=== PATIENT | female | born 2000 | race Caucasian/White ===

== ENCOUNTER 2023-10-08 07:27 | Inpatient (IN) ==
--- OUTSIDE RECORDS SUMMARY | 2023-10-08 07:51 | External Medical Summary | Summary of Care ---
Author Name Unknown Organization [facility] Address [address] [place] [address] Phone [phone] Care Team Providers Care Instrument Maker And Repairer Name Role Phone Nati Darling DO Primary Care Provider Reason for Visit * Reason Comments Non Stress Test Encounter Details Date Type Department Care Team (Late st Contact Info) Description 09/26/2023 2:30 PM EST Office Visit Gynecology/Obstetric s [facility] [address] [facility] [address] Amy Bautista CRNP [address] [place] [address] Bill Non Stress Tests [facility] [address] [place] [address] Supervision of high risk in third trimester*; Rh negative status during in third trimester; Elevated LFTs; Cholestasis during in third trimester; Excessive growth affecting management of in third trimester, single or unspecified fetus; Rubella non-immune status, antepartum Allergies No known active allergiesdocumented as of this encounter (statuses as of 09/26/2023) Medications Medication Sig Dispensed Refills Start Date End Date Status 19 29-1 MG Oral Tablet Chewable Take by mouth. 0 Active Vitamin B-12 1000 MCG Oral Tablet (Cyanocobalamin) Take 1 Tablet by mouth in the morning. 30 Tablet 5 08/08/2023 Active Ursodiol 300 MG Oral Capsule (Actigall)Indication s:Cholestasis during in third trimester Take 1 Capsule by mouth in the morning and 1 Capsule before bedtime. 60 Capsule 2 09/04/2023 Active documented as of this encounter (statuses as of 09/26/2023) Active Problems Problem Noted Date Diagnosed Date Excessive growth affec ting management of in third trimester 09/07/2023 Overview: Repeat growth 38-39 wk Last Assessment & Plan: CONSIDERATIONS: Reviewed that weight greater than 90%ile is considered "large for gestational age" (LGA). Discussed associated risks (e.g., difficult labor progress or delivery, hemorrhage, shoulder dystocia). LGA may be related to constitutional factors (e.g., male gender, ethnicity), environmental factors (maternal diabetes/obesity/weight gain), or genetic conditions. Iraida is of tall stature. Low risk NIPT appreciated. Discussed the limitations of ultrasound in predicting weight, especially at later gestational ages. For a fetus estimated as greater than 4500 gm, this error may be as high as 33-44%. RECOMMENDATIONS: Recommend assessing for GDM if this has not been performed in the last 3 weeks. Iraida had normal 1'GTT on 07/27/23. Recommend repeating ultrasound for growth at 38-39 weeks gestation. Recommend delivery without trial of labor for estimated weight greater than 5000 gm (in the non-diabetic woman) OR greater than 4500 gm (in the diabetic woman). Concern for macrosomia/LGA is NOT an indication for induction of labor. The patient should discuss further management and delivery plan with her primary OB provider. Supervision of high risk in third trim zach 09/04/2023 Cholestasis during in third trimester 09/04/2023 Overview: Cholestasis in thrid trimester, diagnosed at 31w On Ursodiol Reports some itching BILE ACIDS, FRACTIONATED AND TOTAL Order: [id number] Status: Final result Visible to patient: Yes (seen) Next appt: 09/19/2023 at 10:00 AM in Pharmacy ([facility]) Dx: Cholestasis during in third... 0 Result Notes Component 13 d ago Bile Acids, Fractionated and Total SEE BELOW Abnormal Comment: TESTS RESULTS--------UNITS--REF. RANGE--- Cholic Acid 5.8 H umol/L < OR = 1.8 Deoxycholic Acid 0.6 umol/L < OR = 2.4 Chenodeoxycholic Acid 3.3 H umol/L < OR = 3.1 Total Bile Acids 9.7 H umol/L < OR = 6.8 This test was developed and its analytical performance characteristics have been determined by [employer]. It has not been cleared or approved by FDA. This assay has been validated pursuant to the CLIA regulations and is used for clinical purposes. Test performed by [employer] [facility] [address] [place] [address] Hog Slaughterer: Kayla Herrera MD,PHD,FABIAN [facility] [place] Bile Acids, Fractionated and Total 08/21/2023 SEE BELOW Abnormal Comment: TESTS RESULTS--------UNITS--REF. RANGE--- Cholic Acid 7.3 H umol/L < OR = 1.8 Deoxycholic Acid 1.7 umol/L < OR = 2.4 Chenodeoxycholic Acid 4.8 H umol/L < OR = 3.1 Total Bile Acids 13.8 H umol/L < OR = 6.8 Check LFT's and hepatitis panel MANSI. Recommend rechecking LFT's and hepatitis panel after 3 months if suspicion of underlying liver pathology. Recommend treatment with Actigall (ursodeoxycholic acid) 300-500mg twice daily and titrate for symptom control up to maximum of 1200 mg/day. Consider additional medications for control of pruritus (such as Vistaril (hydroxyzine), Benadryl (diphenhydramine), S-adenosylmethionine). Recommend weekly surveillance from 32-34 weeks until delivery. NSTs have not been shown to reduce the risk of IUFD, however, they are routinely recommended given maternal anxiety regarding this diagnosis. It is reasonable to start NSTs at 32 weeks for patients with bile acids greater than 40 umol/L and at 34 weeks for patients with bile acids less than 40 umol/L. Repeat Bile acids at 35 weeks gestation. Delivery timing is based on the highest level of bile acids. We recommend delivery (without amniocentesis for lung maturity) based on the following algorithm: A. Severe range bile acids (>100) delivery on or soon after 36 weeks after a course of steroids. B. Moderate range bile acids (40-100) would be delivered on or soon after 37 weeks. Consider earlier delivery if i. Excruciating or unremitting maternal pruritus. ii. Jaundice. iii. History of stillbirth from ICP in previous with ICP in current . C. Mild range (less than 40) plan for delivery on or soon after 38 weeks. Last Assessment & Plan: Known cholestasis, now on ursodiol. Weekly NSTs planned. Delivery timing based on peak bile acids, which have been re-ordered. If they remain stable < 40, delivery should be planned for 38 weeks. with 33 completed weeks gestation 08/17 Elevated LFTs 08/22/2023 Overview: Ask A Doc to [facility], requesting referral be placed. Hepatic Panel Results: Results for orders placed or performed in visit on 08/21/23 HEPATIC FUNCTION PANEL Result Value Ref Range Albumin 3.5 (L) 3.8 - 5.0 g/dL AST 115 (H) 10 - 35 U/L Alkaline Phosphatase 184 (H) 35 - 130 U/L ALT 239 (H) 10 - 35 U/L Bilirubin, Total 0.4 <=1.2 mg/dL Bilirubin, Direct <0.2 0.0 - 0.3 mg/dL Protein 6.3 6.0 - 8.3 g/dL Iron deficiency anemia 08/21/2023 Rubella non-immune status, antepartum 03/19/2023 Rh negative status during 03/19/2023 Estimated Date of Delivery Comme nts Yes 10/20/2023 Based on last me nstrual period of 01/13/2023 (Exact Date) documented as of this encounter (statuses as of 09/26/2023) Resolved Problems Problem Noted Date Diagnosed Date Resolved Date Supervision of normal first 03/15/2023 09/04/2023 documented as of this encounter (statuses as of 09/26/2023) Immunizations Name Administration Dates Next Due DTaP Dipth/Tet/Acell Pertussis (Infanrix), Peds 03/22/2004,07/17/2000,06/28/1999,04/25,03/01/1999 HIB PRP-T, 4 dose (ActHib) 01/03/2000,,04/25/1999,03/01 HPV Vaccine, 9-Valent 11/20/2017,04/26/2017 Hep A - Hepatitis A (ped/ado le, 1-18 Yrs) 04/26/2017 Hepatitis B Vaccine 06/28/1999,01/31/1999,1998 Hepatitis B, 0-19 yrs 06/28/1999,01/31/1999,12/16 IPV - Polio Virus Vaccine (Inact) 2003,01/03/2000,04/25/1999,03/01 MMR - Measles/Mumps/Rubella Vaccine 03/22/2004,1 Meningococcal MCV4P Conjugat e Vaccine (Menactra) 09/14/2015,08/03/2010 Pneumococcal Conjugate Vacc, 13 Valent (Prevnar) 07/17/2000,01/03/2000 Seasonal Influenza, PF, 6 M & above, IM , (FluLaval or Fluzone) 06/15/2023 TDAP (age 10 and older)(Boostrix) 07/27/2023 TDAP (age 11 and older)(Adacel) 08/03/2010 Varicella Vaccine (Chicken Pox) 04/08/2007,07/17 documented as of this encounter Social History Tobacco Use Types Packs/Day Years Used Date Smoking Tobacco: Never Smokeless Tobacco: Never Alcohol Use Standard Drinks/Week Comments Not Currently 0 (1 standard drink = 0.6 oz pur e alcohol) PHQ-2 Answer Date Recorded PHQ Adult Total Score 0 03/13/2023 Hunger Vital Sign Answer Date Recorded Within the past 12 months, y ou worried that your food would run out before you got the money to buy more. Never true 06/08/20 23 Within the past 12 months, t he food you bought just didn't last and you didn't have money to get more. Never true 06/08/2023 [place] Depression Scale Answer Date Recorded [place] Depression Scale Total 2 07/27/2023 The thought of harming myself has occurred to me . Never 07/27/2023 Estimated Date of Delivery Comme nts Yes 10/20/2023 Based on last me nstrual period of 01/13/2023 (Exact Date) Sex and Gender Information Value Date Recorded Sex Assigned at Female 02/08/2023 7:52 AM EDT Gender Identity Female 02/08/2023 7:52 AM EDT Sexual Orientation Straight 02/27/2023 9: 06 AM EDT Job Start Date Occupation Industry Not on file Not on file Not on file documented as of this encounter Last Filed Vital Signs Vital Sign Reading Time Taken Comments Blood Pressure 126/82 09/26/2023 2:22 PM EST Pulse - - Temperature - - Respiratory Rate - - Oxygen Saturation - - Inhaled Oxygen Concentration - - Weight 95.7 kg (211 lb) 09/26/2023 2:22 PM EST Height 175.3 cm (5' 9") 09/26/2023 2:22 PM EST Body Mass Index 31.16 09/26/2023 2:22 PM EST documented in this encounter Progress Notes * Amy Bautista CRNP - 09/26/2023 2:55 PM EST 36w4d No concerns. Taking actigall, but not having any itching. Baby is active. No contractions or bleeding. Has growth u/s scheduled with MFM. IOL scheduled at 38w. GBS today. Linen Sorter Documentation Provider requested commission auditor. Name of commission auditor: Malgorzata ASSESSMENT assessment with Non-stress Test completed on 09/26/2023 at 36.4weeks gestation for indication of ICP heart baseline: 120 bpm Variability: Moderate Decelerations: absent Accelerations: present Contractions: None NST start time: 1432 NST stop time: 1457 NST strip reviewed, interpreted, and approved by OB provider, LASHAWN Lassiter . NST strip stored in clinic storage file * Malgorzata Hyde LPN - 09/26/2023 2:41 PM EST 36w4d NST/OBI GBS today. Denies concerns. documented in this encounter Plan of Treatment Upcoming Encounters Date Type Department Care Team (Late st Contact Info) Description 10/04/2023 1:45 PM EST Office Visit Gynecology/Obstetrics [facility] [address] [facility] [place] [address] Amy Bautista CRNP [address] [place] [address] Lizbeth Khan Stress Tests [facility] [address] [place] [address] 10/05/2023 9:15 AM EST Office Visit Accounting Teacher OB Maternal Medicine [facility] Juan Diego Goznales [address] [place] [address] Dr [address] [place] [address] Mg Christensen MD [address] [place] [address] 10/05/2023 9:15 AM EST Imaging Maternal Medicine [facility] Juan Diego Gonzales [address] [place] [address] Dr [address] [place] [address] 03/14/2024 7:20 AM EDT Office Visit Family Practice [facility] Zarate [place] [address] [facility] [place] [address] Nati Darling DO [address] [place] [address] Pending Results Name Type Priority Associated Diagnoses Date /Time GROUP B STREP CULTURE/PCR Lab Routine Supervision of high risk in third trimester 09/26/2023 3:37 PM EST Health Maintenance Due Date Last Done Comments COVID-19 Vaccine (#1) 06/25/1999 GARDASIL-HPV IMMUNIZATION SE GAVIN (3 - 3-dose series) 02/12/2018 11/20/2017, 04/26/2017 Depression Screening 03/13/2024 03/13/2023 Gonorrhea / Chlamydia Screen 03/15/2024 03/15/2023 Pap Smear 03/15/2026 03/15/2023 DTaP,Tdap,and Td Vaccines (8 - Td or Tdap) 07/27/2033 07/27/2023, 08/03/2010, 03/22/2004, Additional history exists Hepatitis B Completed 06/28/1999, 06/17, 01/31/1999, Additional history exists Pneumococcal Vaccine: Pediat rics (0 to 5 Years) and At-Risk Patients (6 to 64 Years) Completed 07/17/2000, 01/03/2000 MENINGOCOCCAL (MENACTRA/MENVEO) Completed 5, 08/03/2010 Influenza Vaccine (FLU shot) Completed 06/15/2023 documented as of this encounter Medical Devices Not on filedocumented as of this encounter Visit Diagnoses Diagnosis Supervision of high risk in third trimester- Primary Unspecified high-risk Rh negative status during in third trimester Elevated LFTs Other abnormal blood chemistry Cholestasis during in third trimester Excessive growth affecting management of in third trimester, single or unspecified fetus Rubella non-immune status, antepartum Other specified complication, antepartum documented in this encounter Care Teams Instrument Maker And Repairer Relationship Specialty Start Date End Date Nati Darling DO [address] [place] [address] PCP - General Family Medicine 03/13/23 documented as of this encounter
--- OUTSIDE RECORDS SUMMARY | 2023-10-08 07:51 | External Medical Summary | Summary of Care ---
Author Name Unknown Organization [facility] Address [address] [place] [address] Phone [phone] Care Team Providers Care Teaching Dietitian Name Role Phone Nati Darling DO Primary Care Provider Reason for Visit * Reason Comments Return Visit Encounter Details Date Type Department Care Team (Late st Contact Info) Description 10/04/2023 1:45 PM EST Office Visit Gynecology/Obstetric s [facility] [address] [place] [address] Amy Bautista CRNP [address] [place] [address] Bill Non Stress Tests [facility] [address] [place] [address] Supervision of high risk in third trimester*; Rubella non-immune status, antepartum; Rh negative, antepartum; Elevated LFTs; Cholestasis during in third trimester; Excessive growth affecting management of in third trimester, single or unspecified fetus Allergies No known active allergiesdocumented as of this encounter (statuses as of 10/04/2023) Medications Medication Sig Dispensed Refills Start Date [...] as of this encounter (statuses as of 10/04/2023) Active Problems Problem Noted Date Diagnosed Date [...] itching BILE ACIDS, FRACTIONATED AND TOTAL Order: [id number] Status: Final result Visible to patient: Yes [...] analytical performance characteristics have been determined by [employer]. It has not been cleared or approved by FDA. This assay has been validated pursuant to the CLIA regulations and is used for clinical purposes. Test performed by [facility] [address] [place] [address] Diving Board Assembler: Kayla Herrera MD,PHD,FABIAN Resulting Agency [facility] [place] Bile Acids, Fractionated and Total 08/21/2023 SEE [...] LFTs 08/22/2023 Overview: Ask A Doc to [facility], requesting referral be placed. Hepatic Panel [...] as of this encounter (statuses as of 10/04/2023) Resolved Problems Problem Noted Date Diagnosed Date Resolved Date Supervision of normal first 03/15/2023 09/04/2023 documented as of this encounter (statuses as of 10/04/2023) Immunizations Name Administration Dates Next Due DTaP [...] money to get more. Never true 06/08/2023 [place] Depression Scale Answer Date Recorded [place] Depression Scale Total 2 07/27/2023 The thought [...] Sign Reading Time Taken Comments Blood Pressure 120/70 10/04/2023 1:52 PM EST Pulse - - Temperature - - Respiratory Rate - - Oxygen Saturation - - Inhaled Oxygen Concentration - - Weight 98.4 kg (217 lb) 10/04/2023 1:52 PM EST Height 175.3 cm (5' 9") 10/04/2023 1:52 PM EST Body Mass Index 32.05 10/04/2023 1:52 PM EST documented in this encounter Progress Notes * Amy Bautista CRNP - 10/04/2023 2:26 PM EST 37w5d No complaints. Minimal itching. Baby is active, no contractions. IOL next week. ASSESSMENT assessment with Non-stress Test completed on 10/04/2023 at 37.5weeks gestation for indication of ICP heart baseline: 120 bpm Variability: Marked Decelerations: absent Accelerations: present Contractions: None NST start time: 1349 NST stop time: 1411 NST strip reviewed, interpreted, and approved by OB provider, LASHAWN Lassiter . NST strip stored in clinic storage file documented in this encounter Plan of Treatment Upcoming Encounters Date Type Department Care Team (Late st Contact Info) Description 10/05/2023 9:15 AM EST Office Visit Dinkey Operator [facility] Juan Diego Gonzales [address] [place] [address] Dr [address] [facility] [address] Mg Christensen MD [address] [facility] [address] 10/05/2023 9:15 AM EST Imaging Maternal Medicine [facility] Juan Diego Gonzales [address] [place] [address] Dr [address] [place] [address] 03/14/2024 7:20 AM EDT Office Visit Family Practice [facility] Tessa [place] [address] [place] [address] Nati Darling, [address] [place] [address] Health Maintenance Due Date Last Done Comments [...] risk in third trimester- Primary Unspecified high-risk Rubella non-immune status, antepartum Other specified complication, antepartum Rh negative, antepartum Rhesus isoimmunization affecting management of mother, antepartum condition Elevated LFTs Other abnormal blood chemistry Cholestasis during in third trimester Excessive growth affecting management of in third trimester, single or unspecified fetus documented in this encounter Care Teams Teaching Dietitian Relationship Specialty Start Date End Date Nati Darling DO [address] [place] [address] PCP - General Family Medicine 03/13/23 documented as of this encounter
--- OUTSIDE RECORDS SUMMARY | 2023-10-08 07:52 | External Medical Summary | Summary of Care ---
Author Name Unknown Organization [facility] Address [address] [place] [address] Phone [phone] Care Team Providers Care Bending Frame Operator Name Role Phone Nati Darling DO Primary Care Provider Encounter Details Date Type Department Care Team (Late st Contact Info) Description 09/04/2023 Telephone Hematology/Oncology [facility] [address] [place] [address] Love Queen PA-C [address] [place] [address] Allergies No known active allergiesdocumented as of this encounter (statuses as of 09/06/2023) Medications Medication Sig Dispensed Refills Start Date [...] as of this encounter (statuses as of 09/06/2023) Active Problems Problem Noted Date Diagnosed Date Supervision of high risk in third trim zach 09/04/2023 Cholestasis during in third trimester 09/04/2023 Overview: Cholestasis in thrid trimester, diagnosed at 31w On Ursodiol Reports some itching For repeat bile acids on 09/05/2023 Bile Acids, Fractionated and Total 08/21/2023 SEE [...] after 38 weeks. Last Assessment & Plan: CONSIDERATIONS: Explained to patient that intrahepatic cholestasis of (ICP) generally occurs in the second and third trimester and is characterized by pruritus, an elevation of serum bile acid concentrations, and often mild jaundice. The cause of ICP (intrahepatic cholestasis of ) is unknown though there may be a familial component and the incidence is approximately 1/200 pregnancies. The pruritus is often generalized but predominates on the palms of hand and soles of feet and is worse at night and is usually characterized as intolerable. Pruritus may precede laboratory abnormalities. Pruritus is not associated with a rash. Discussed with patient that ICP is diagnosed based on symptoms and lab abnormalities. Lab diagnosis for ICP is primarily made through assessment of bile acids after 24 weeks gestation. Bile acids can be measured regardless of fasting status. Diagnosis should be based on the normal ranges for at the lab where testing is performed. These lab abnormalities resolve after . Reviewed with patient that maternal prognosis with a diagnosis of intrahepatic cholestasis of (ICP) is very good. ICP resolves after delivery and there is no evidence of associated long-term maternal liver pathology, however ICP may occur more commonly in women with preexisting liver disease. complications include an increased incidence of premature delivery, intrauterine demise, and RDS. Risk of complications is believed to be directly proportional to the concentration of bile acids above the concentration of 40 umol/L. The greatest risk occurs with bile acid concentration above 100 umol/L. Explained that demise rarely occurs before 36 weeks gestation. The cause is unknown and there is no ideal method for surveillance in ICP. The recurrence risk for intrahepatic cholestasis of (ICP) in subsequent pregnancies is 40% to 60%. There is no available therapy for prevention. RECOMMENDATIONS: Check LFT's and hepatitis panel MANSI. Recommend [...] delivery on or soon after 38 weeks. with 33 completed weeks gestation 08/17 Elevated LFTs 08/22/2023 Overview: Ask A Doc to [facility], requesting referral be placed. Hepatic Panel [...] as of this encounter (statuses as of 09/06/2023) Resolved Problems Problem Noted Date Diagnosed Date Resolved Date Supervision of normal first 03/15/2023 09/04/2023 documented as of this encounter (statuses as of 09/06/2023) Immunizations Name Administration Dates Next Due DTaP [...] money to get more. Never true 06/08/2023 [place] Depression Scale Answer Date Recorded [place] Depression Scale Total 2 07/27/2023 The thought [...] on file documented as of this encounter Miscellaneous Notes * Telephone Encounter - Teressa Garay OSA - 09/05/2023 10:34 AM EST Called and spoke to patient and she is scheduled for venofer for 09/06/23. * Telephone Encounter - Gerardo Quevedo RN - 09/05/2023 9:40 AM EST [place] plan signed. Scheduling- Please call patient to schedule "Venofer /" (Bret). Patient will need weekly infusions x 3. Thank you! * Telephone Encounter - Gerardo Quevedo RN - 09/04/2023 12:30 PM EST [place] plan built and sent to [facility] as requested. Will await signature. No auth required for IV Venofer. documented in this encounter Plan of Treatment Upcoming Encounters Date Type Department Care Team (Late st Contact Info) Description 09/06/2023 1:45 PM EST Hem/Onc Treatment Hematology/Oncology Treatment, [place] [address] [place] [address] Tessa, Chair 7 Hem Onc [facility] [address] [place] [address] 09/07/2023 7:45 AM EST Office Visit Director Acute OB Maternal Medicine [facility] Juan Diego Gonzales [address] [place] [address] [address] [place] [address] Mona Quintanilla, [address] [place] [address] 09/07/2023 7:45 AM EST Imaging Maternal Medicine [facility] Juan Diego Gonzales [address] [place] [address] [address] [place] [address] 09/12/2023 2:15 PM EST Office Visit Gynecology/Obstetrics [facility] [address] [place] [address] Zuleyma Beltran CRNP [address] [place] [address] Bill Non Stress Tests [facility] [address] [place] [address] 09/18/2023 8:30 AM EST Office Visit Gynecology/Obstetrics [facility] [address] [place] [address] Zuleyma Beltran CRNP [address] [place] [address] 09/19/2023 10:00 AM EST Pharmacy Pharmacy, [place] [address] [place] [address] [facility] [address] [place] [address] 09/25/2023 8:00 AM EST Office Visit Gynecology/Obstetrics [facility] [address] [place] [address] Amy Bautista CRNP [address] [place] [address] 10/02/2023 8:00 AM EST Office Visit Gynecology/Obstetrics [facility] [address] [place] [address] Amy Bautista CRNP [address] [place] [address] 10/09/2023 8:00 AM EST Office Visit Gynecology/Obstetrics [facility] [address] [place], [place] [address] Amy Bautista CRNP [address] [place] [address] 10/16/2023 8:00 AM EST Office Visit Gynecology/Obstetrics [facility] [address] [place] [address] Amy Bautista CRNP [address] [place] [address] 10/23/2023 10:00 AM EST Office Visit Gynecology/Obstetrics [facility] [address] [place] [address] Amy Bautista CRNP [address] [place] [address] 03/14/2024 7:20 AM EDT Office Visit Family Practice [facility] [address] [place] [address] Nati Darling, [address] [place] [address] Health Maintenance Due Date Last Done Comments [...] Not on filedocumented as of this encounter Care Teams Bending Frame Operator Relationship Specialty Start Date End Date Nati Darling DO [address] [place] [address] PCP - General Family Medicine 03/13/23 documented as of this encounter
--- OUTSIDE RECORDS SUMMARY | 2023-10-08 07:52 | External Medical Summary | Summary of Care ---
Author Name Unknown Organization [facility] Address [address] [place] [address] Phone [phone] Care Team Providers Care Director Of Hemophilia Name Role Phone Nati Darling DO Primary Care Provider Reason for Visit * Evaluate & Treat - Unlimited Visits (Within 3 days (urgent)) - Authorized Specialty Diagnoses / Procedures Referred By Dash t Referred To Contact Obstetrics/Gynecology / Maternal Medicine Diagnoses Elevated LFTs Amy Bautista CRNP [address] [place] [address] Referral ID Status Reason Start Date Expiration Date Visits Requested Visits Authorized [id number] Authorized Specialty Services Required 08/22/2023 08/22/[phone] Encounter Details Date Type Department Care Team (Late st Contact Info) Description 09/07/2023 7:45 AM EST Office Visit Choker Setter OB Maternal Medicine [facility] Juan Diego Gonzales [address] [place] [address] Dr [address] [place] [address] Mona Quintanilla, DO [address] [place] [address] Cholestasis during in third trimester*; Excessive growth affecting management of in third trimester, single or unspecified fetus; Encounter for anatomic survey; 33 weeks gestation of ; Other specified related conditions, second trimester Allergies No known active allergiesdocumented as of this encounter (statuses as of 09/07/2023) Medications Medication Sig Dispensed Refills Start Date [...] as of this encounter (statuses as of 09/07/2023) Active Problems Problem Noted Date Diagnosed Date Excessive growth affec ting management of in third trimester 09/07/2023 Last Assessment & Plan: CONSIDERATIONS: Reviewed that [...] LFTs 08/22/2023 Overview: Ask A Doc to [facility], requesting referral be placed. Hepatic Panel [...] as of this encounter (statuses as of 09/07/2023) Resolved Problems Problem Noted Date Diagnosed Date Resolved Date Supervision of normal first 03/15/2023 09/04/2023 documented as of this encounter (statuses as of 09/07/2023) Immunizations Name Administration Dates Next Due DTaP [...] money to get more. Never true 06/08/2023 [place] Depression Scale Answer Date Recorded [place] Depression Scale Total 2 07/27/2023 The thought [...] on file documented as of this encounter Progress Notes * Mona Quintanilla, - 09/07/2023 1:00 PM EST MATERNAL MEDICINE VISIT Iraida Garcia presented today at 33w6d for an ultrasound and follow-up of her high risk . She was seen for the following indications: Problem List Items Addressed This Visit Digestive Cholestasis during in third trimester - Primary Known cholestasis, now on ursodiol. Weekly NSTs planned. Delivery timing based on peak bile acids, which have been re-ordered. If they remain stable < 40, delivery should be planned for 38 weeks. Other Excessive growth affecting management of in third trimester CONSIDERATIONS: Reviewed that weight greater than 90%ile is considered "large for gestational age" (LGA). Discussed associated risks (e.g., difficult labor progress or delivery, hemorrhage, shoulderdystocia). LGA may be related to constitutional factors (e.g., male gender, ethnicity), environmental factors (maternal diabetes/obesity/weight gain), or genetic conditions. Iraida is of tall stature. Low risk NIPT appreciated. Discussed the limitations of ultrasound in predicting weight, especially at later gestationalages. For a fetus estimated as greater than [...] delivery plan with her primary OB provider. Other Visit Diagnoses Encounter for anatomic survey 33 weeks gestation of We reviewed today's ultrasound findings. Normal growth with no evidence of structural abnormalities, however exam suboptimal dueto advanced gestational age and position. (For full details, please refer to ultrasound report provided separately). Ms. Garcia's questions were answered to her satisfaction. She was advised to contact our office or her OB provider for any additional questions regarding her . RECOMMENDATIONS: Recommend follow up ultrasound with MFM in 4 weeks for growth secondary to above indications. Thank you for allowing us to participate in the care of this patient. Please call with any questions. Mona Quintanilla DO 09/07/2023 1:00 PM documented in this encounter Miscellaneous Notes * Assessment & Plan Note - Mona Quintanilla DO - 09/07/2023 12:11 PM EST Associated Problem(s): Excessive growth affecting management of in third trimester CONSIDERATIONS: Reviewed that weight greater than 90%ile is considered "large for gestational age" (LGA). Discussed associated risks (e.g., difficult labor progress or delivery, hemorrhage, shoulderdystocia). LGA may be related to constitutional factors (e.g., male gender, ethnicity), environmental factors (maternal diabetes/obesity/weight gain), or genetic conditions. Iraida is of tall stature. Low risk NIPT appreciated. Discussed the limitations of ultrasound in predicting weight, especially at later gestationalages. For a fetus estimated as greater than [...] delivery plan with her primary OB provider. * Assessment & Plan Note - Mona Quintanilla DO - 09/07/2023 12:04 PM EST Associated Problem(s): Cholestasis during in third trimester Known cholestasis, now on ursodiol. Weekly NSTs planned. Delivery timing based on peak bile acids, which have been re-ordered. If they remain stable < 40, delivery should be planned for 38 weeks. documented in this encounter Plan of Treatment Upcoming Encounters Date Type Department Care Team (Late st Contact Info) Description 09/12/2023 2:15 PM EST Office Visit Gynecology/Obstetrics [facility] [address] [place] [address] Zuleyma Beltran CRNP [address] [place] [address] Bill, Non Stress Tests [facility] [address] [place] [address] 09/13/2023 9:30 AM EST Hem/Onc Treatment Hematology/Oncology Treatment, [place] [address] [place] [address] Tessa, Chair [address] [place], [place] [address] 09/18/2023 8:30 AM EST Office Visit Gynecology/Obstetrics [facility] [address] [place] [address] Zuleyma Beltran CRNP [address] [place] [address] 09/19/2023 10:00 AM EST Pharmacy Pharmacy, [place] [address] [place] [address] Clinic, An[place] [address] [place] [address] 09/20/2023 8:30 AM EST Hem/Onc Treatment Hematology/Oncology Treatment, [place] [address] [place] [address] Tessa, Chair 11 Hem Onc [facility] [address] [facility] [place] [address] 09/25/2023 8:00 AM EST Office Visit Gynecology/Obstetrics [facility] [address] [place] [address] Amy Bautista CRNP [address] [place] [address] 10/02/2023 8:00 AM EST Office Visit Gynecology/Obstetrics [facility] [address] [place] [address] Amy Bautista CRNP [address] [place] [address] 10/05/2023 9:15 AM EST Office Visit Choker Setter OB Maternal Medicine [facility] Juan Diego Gonzales [address] [place] [address] [address] [place] [address] Mg Christensen MD [address] [place] [address] 10/05/2023 9:15 AM EST Imaging Maternal Medicine [facility] Juan Diego Gonzales [address] [place] [address] [address] [place] [address] 10/09/2023 8:00 AM EST Office Visit Gynecology/Obstetrics [facility] [address] [place] [address] Amy Bautista CRNP [address] [place] [address] 10/16/2023 8:00 AM EST Office Visit Gynecology/Obstetrics [facility] [address] [place] [address] Amy Bautista CRNP [address] [place] [address] 10/23/2023 10:00 AM EST Office Visit Gynecology/Obstetrics [facility] [address] [place] [address] Amy Bautista CRNP [address] [place] [address] 03/14/2024 7:20 AM EDT Office Visit Family Practice [facility] Zarate [place] [address] [place] [address] Nati Darling, [address] [place] [address] Scheduled Orders Name Type Priority Associated Diagnoses Orde r Schedule MFM US PREG FOLLOW UP EACH FETUS Medical Imaging Routine Cholestasis during in third trimester Excessive growth affecting management of in third trimester, single or unspecified fetus Encounter for anatomic survey 33 weeks gestation of Other specified related conditions, second trimester 4 Occurrences starting 09/07/2023 until 12/07/2023 Health Maintenance Due Date Last Done Comments [...] as of this encounter Visit Diagnoses Diagnosis Cholestasis during in third trimester- Primary Excessive growth affecting management of in third trimester, single or unspecified fetus Encounter for anatomic survey 33 weeks gestation of state, incidental Other specified related conditions, second trimester documented in this encounter Care Teams Director Of Hemophilia Relationship Specialty Start Date End Date Nati Darling DO [address] [place] [address] PCP - General Family Medicine 03/13/23 documented as of this encounter
--- OUTSIDE RECORDS SUMMARY | 2023-10-08 07:52 | External Medical Summary | Summary of Care ---
Author Name Unknown Organization [facility] Address [address] [place] [address] Phone [phone] Care Team Providers Care Frog Shaker Name Role Phone Nati Darling DO Primary Care Provider Reason for Visit * Reason Comments IV Therapy Venofer 09/19 Encounter Details Date Type Department Care Team (Latest Contact Info) Description 09/06/2023 1:45 PM EST Hem/Onc Treatment Hematology/Oncology Treatment, [address] [address] Tessa, Chair 7 Hem Onc [address] [address] Iron deficiency anemia, unspecified iron deficiency anemia type* Allergies No known active allergiesdocumented as of [...] LFTs 08/22/2023 Overview: Ask A Doc to [facility], requesting referral be placed. Hepatic Panel [...] money to get more. Never true 06/08/2023 [place] Depression Scale Answer Date Recorded [place] Depression Scale Total 2 07/27/2023 The thought [...] Sign Reading Time Taken Comments Blood Pressure 120/74 09/06/2023 2:31 PM EST Pulse 98 09/06/2023 2:31 PM EST Temperature 36.7 C (98 F) 09/06/2023 2:31 PM EST Respiratory Rate 16 09/06/2023 2:31 PM EST Oxygen Saturation - - Inhaled Oxygen Concentration - - Weight - - Height - - Body Mass Index - - documented in this encounter Nursing Notes * Rajani Nieves RN - 09/06/2023 4:06 PM EST Pt completed treatment without issues. IV removed. Goals: Pt will remain free from injury. Possible barriers to meeting goals: ambulation with IV pole Stability of the patient: Moderately stable - low risk of patient condition declining or worsening Summary regarding today's goals: Met: Pt remained free from injury during treatment today. Discharged in stable condition. Loree Diez assisted. * Rajani Nieves RN - 09/06/2023 2:32 PM EST Chair 11, Venofer. Pt has no complaints at this time. PIV established; Venofer infusing. Safety and Risk for Injury Patient will remain free from injury. Ensure appropriate safety devices are available. Provide and maintain safe environment. documented in this encounter Plan of Treatment Upcoming Encounters Date Type Department Care Team (Late st Contact Info) Description 09/07/2023 7:45 AM EST Office Visit Chemical Recovery Operator OB Maternal Medicine [facility] Juan Diego Gonzales [address] [place] [address] Dr [address] [facility] [address] Mona Quintanilla DO [address] [place] [address] 09/07/2023 7:45 AM EST Imaging Maternal Medicine [facility] Juan Diego Gonzales [address] [place] [address] Dr [address] [place] [address] 09/12/2023 2:15 PM EST Office Visit Gynecology/Obstetrics [facility] [address] [place] [address] Zuleyma Beltran CRNP [address] [place] [address] Bill, Non Stress Tests [facility] [address] [place] [address] 09/13/2023 9:30 AM EST Hem/Onc Treatment Hematology/Oncology Treatment, [address] [place] [address] Tessa, Chair 8 Hem Onc [address] [address] 09/18/2023 8:30 AM EST [facility] [address] [place] [address] Zuleyma Beltran CRNP [address] [place] [address] 09/19/2023 10:00 AM EST Pharmacy Pharmacy, [place] [address] [place] [address] Clinic, Anemia [address] [place] [address] 09/20/2023 8:30 AM EST Hem/Onc Treatment Hematology/Oncology Treatment, [address] [address] Tessa, Chair 11 Hem Onc [facility] [address] [facility] [place] [address] 09/25/2023 8:00 AM EST Office Visit Gynecology/Obstetrics [facility] [address] [place] [address] Amy Bautista CRNP [address] [place] [address] 10/02/2023 8:00 AM EST Office Visit Gynecology/Obstetrics [facility] [address] [place] [address] Amy Bautista CRNP [address] [place] [address] 10/09/2023 8:00 AM EST Office Visit Gynecology/Obstetrics [facility] [address] [place] [address] Amy Bautista CRNP [address] [place] [address] 10/16/2023 8:00 AM EST Office Visit Gynecology/Obstetrics [facility] [address] [place] [address] Amy Bautista CRNP [address] [place] [address] 10/23/2023 10:00 AM EST Office Visit Gynecology/Obstetrics [facility] [address] [place] [address] Amy Bautista CRNP [address] [place] [address] 03/14/2024 7:20 AM EDT Office Visit Family Practice [facility] Tessa [place] [address] [place] [address] Nati Darling, DO [address] [place] [address] Health Maintenance Due Date Last Done Comments [...] as of this encounter Visit Diagnoses Diagnosis Iron deficiency anemia, unspecified iron deficiency anemia type- Primary documented in this encounter Administered Medications Active Administered Medications - up to 3 most recent administrations Medication Order MAR Action Action Date Dose Rate Site diphenhydrAMINE (Benadryl) inj 50 mg 50 mg, IV Push, ONCE PRN Other, Hypersensitivity Reaction, Starting on Marli 09/06/23 at 1416, Until Sun09/07/23 at 1415, For 24 hours EPINEPHrine 1 MG/ML inj 0.3 mg 0.3 mg, Intramuscular, ONCE PRN Other, Hypersensitivity Reaction or Anaphylaxis, Starting on Marli 09/06/23 at 1416, Until Sun09/07/23 at 1415, For 24 hours hEParin 100 UNIT/ML Lock Flush inj 500 Units 500 Units (5 mL), IV Lock, PRN Other, IV Flush, Starting on Marli 09/06/23 at 1416, Until Sun09/07/23 at 1415, For 24 hours, Do not flush if lock, PICC, or central line not in place; IV infusing or unable to flush. Hydrocortisone Sod Suc (PF) (Solu-Cortef) inj 100 mg 100 mg, IV Push, ONCE PRN Other, Hypersensitivity Reaction, Starting on Marli 09/06/23 at 1416, Until Sun09/07/23 at 1415, For 24 hours NSS infusion 500 mL, Intravenous, at 50 mL/hr, CONTINUOUS, Starting on Sun09/06/23 at 1530, Until Sun09/07/23 at 0129 Start Infusion 09/06/2023 2:16 PM EST 500 mL 50 mL/hr oxygen GAS Inhalation, OXYGEN, First dose on Marli 09/06/23 at 1600, Until Discontinued, Device/Managed by: Low Flow Device, Goal SPO2 (%): 91-95, Starting Device: Nasal Cannula, Initial Flow Rate (LPM): 2, Lowest Support: Nasal Cannula: Flow 0-6 LPM. Titrate up/down by 1 LPM., Higher Support: Non-Rebreather (NRB) Mask: Minimum of 10 LPM. Titrate to maintain bag inflation., Titration Interval: Q2 minutes and as needed., Notify Provider: For sudden DECREASE in resting SPO2 to less than 85% and when escalating delivery device., Wean patient off Oxygen when the oxygen saturation is greater than or equal to 93% sodium chloride 0.9 % flush central line 10 mL 10 mL, IV Push, PRN Other, IV Flush, Starting on Marli 09/06/23 at 1416, Until Sun09/07/23 at 1415, For 24 hours, Do not flush if lock, PICC, or central line not in place; IV infusing or unable to flush. Inactive Administered Medications - up to 3 most recent administrations Medication Order MAR Action Action Date Dose Rate Site Iron Sucrose (Venofer) 300 mg in NSS 250 mL ivpb 300 mg, IV Piggyback, ONCE, 1 dose, On Sun09/06/23 at 1600, Administer over 90 Minutes Start Infusion 09/06/2023 2:16 PM EST 300 mg 166.67 mL/hr documented in this encounter Care Teams Frog Shaker Relationship Specialty Start Date End Date Nati Darilng DO [address] [facility] [place] [address] PCP - General Family Medicine 03/13/23 documented as of this encounter
--- OUTSIDE RECORDS SUMMARY | 2023-10-08 07:52 | External Medical Summary ---
Author Name Unknown Address Unknown Organization [facility] [address] [place] [address] Laboratory Report Ordering Provider Test Date Status AZEEM VASQUEZ 09/12/2023 15:54:11 Final Observation Date Value Abnormality Reference (Units ) Status Glucose [Moles/volume] in Serum or Plasma --1 hour post 50 g glucose PO 09/12/2023 15:54:11 97 70-129 (mg/dL) Final Performing Location [facility] [address] [place] [address]
--- OUTSIDE RECORDS SUMMARY | 2023-10-08 07:52 | External Medical Summary | Summary of Care ---
Author Name Unknown Organization [facility] Address [address] [place] [address] Phone [phone] Care Team Providers Care Tree Cutter Name Role Phone Nati Darling DO Primary Care Provider Reason for Visit * Reason Comments Non Stress Test Encounter Details Date Type Department Care Team (Late st Contact Info) Description 09/12/2023 2:15 PM EST Office Visit Gynecology/Obstetric s [facility] [address] [facility] [place] [address] Zuleyma Beltran CRNP [address] [facility] [place] [address] Bill Non Stress Tests Olegario [address] [place] [address] Supervision of high risk in third trimester*; Rubella non-immune status, antepartum; Rh negative status during in third trimester; Elevated LFTs; Cholestasis during in third trimester; Excessive growth affecting management of in third trimester, single or unspecified fetus Allergies No known active allergiesdocumented as of this encounter (statuses as of 09/12/2023) Medications Medication Sig Dispensed Refills Start Date End Date Status 19 29-1 MG Oral Tablet Chewable Take by mouth. 0 Active Vitamin B-12 1000 MCG Oral Tablet (Cyanocobalamin) Take 1 Tablet by mouth in the morning. 30 Tablet 5 08/08/2023 Active Ursodiol 300 MG Oral Capsule (Actigall)Indicat ions:Cholestasis during in third trimester Take 1 Capsule by mouth in the morning and 1 Capsule before bedtime. 60 Capsule 2 09/04/2023 Active Amoxicillin 875 MG Oral TabletIndications :Acute maxillary sinusitis, recurrence not specified Take 1 Tablet by mouth in the morning and 1 Tablet before bedtime. Do all this for 10 days. 20 Tablet 0 08/07/2023 09/12/2023 Discontinued documented as of this encounter (statuses as of 09/12/2023) Active Problems Problem Noted Date Diagnosed Date [...] LFTs 08/22/2023 Overview: Ask A Doc to [facility], requesting referral be placed. Hepatic Panel Results: [...] as of this encounter (statuses as of 09/12/2023) Resolved Problems Problem Noted Date Diagnosed Date Resolved Date Supervision of normal first 03/15/2023 09/04/2023 documented as of this encounter (statuses as of 09/12/2023) Immunizations Name Administration Dates Next Due DTaP [...] money to get more. Never true 06/08/2023 [place] Depression Scale Answer Date Recorded [place] Depression Scale Total 2 07/27/2023 The thought [...] Reading Time Taken Comments Blood Pressure 120/70 09/12/2023 2:15 PM EST Pulse - - Temperature - - Respiratory Rate - - Oxygen Saturation - - Inhaled Oxygen Concentration - - Weight 94.8 kg (209 lb) 09/12/2023 2:15 PM EST Height - - Body Mass Index 30.86 09/04/2023 8:27 AM EST documented in this encounter Progress Notes * Zuleyma Beltran CRNP - 09/12/2023 2:24 PM EST ASSESSMENT assessment with Non-stress Test completed on 09/12/2023 at 34.4 weeks gestation for indication of cholestasis heart baseline: 120 bpm Variability: Moderate Decelerations: absent Accelerations: present Contractions: None NST start time: 1411 NST stop time: 1432 NST strip reviewed, interpreted, and approved by OB provider, LASHAWN Rose . NST strip stored in clinic storage file documented in this encounter Plan of Treatment Upcoming Encounters Date Type Department Care Team (Late st Contact Info) Description 09/13/2023 9:30 AM EST Hem/Onc Treatment Hematology/Oncology Treatment, [address] [address] Tessa, Chair [address] [address] 09/18/2023 8:30 AM EST Office Visit Gynecology/Obstetrics [facility] 132 [facility] [place] [address] Zuleyma Beltran CRNP [address] [facility] [place] [address] 09/19/2023 10:00 AM EST Pharmacy Pharmacy, [place] [address] [place] [facility] [place] [address] Clinic, Anemia [address] [place] [address] 09/20/2023 8:30 AM EST Hem/Onc Treatment Hematology/Oncology Treatment, [address] [address] Tessa, Chair 11 Hem Onc Scenery [address] [place] [place] [address] 09/25/2023 8:00 AM EST Office Visit Gynecology/Obstetrics [facility] [address] [place] [address] Amy Bautista CRNP [address] [place] [address] 10/02/2023 8:00 AM EST Office Visit Gynecology/Obstetrics [facility] [address] [place] [address] Amy Bautista CRNP [address] [place] [address] 10/05/2023 9:15 AM EST Office Visit Waterproof Bag Sewer OB Maternal Medicine [facility] Juan Diego Gonzales [address] [place] [address] Dr [address] [place] [address] [place] [address] Mg Christensen MD [address] [place] [address] 10/05/2023 9:15 AM EST Imaging Maternal Medicine [facility] Juan Diego Gonzales [address] [place] [address] Dr [address] [place] [address] 10/09/2023 8:00 AM EST Office Visit Gynecology/Obstetrics [facility] [address] [place] [address] Amy Bautista CRNP [address] [place] [address] 10/16/2023 8:00 AM EST Office Visit Gynecology/Obstetrics [facility] [address] [place] [address] Amy Bautista CRNP [address] [place] [address] 10/23/2023 10:00 AM EST Office Visit Gynecology/Obstetrics [facility] [address] [place] [address] Amy Bautista CRNP [address] [place] [address] 03/14/2024 7:20 AM EDT Office Visit Family Practice State Jaye Kuo [address] [place] [address] Nati Darling DO [address] [place] [address] Health Maintenance Due Date Last Done Comments [...] status, antepartum Other specified complication, antepartum Rh negative status during in third trimester Elevated LFTs Other abnormal blood chemistry Cholestasis during in third trimester Excessive growth affecting management of in third trimester, single or unspecified fetus documented in this encounter Care Teams Tree Cutter Relationship Specialty Start Date End Date Nati Darling DO [address] [place] [address] PCP - General Family Medicine 03/13/23 documented as of this encounter
--- OUTSIDE RECORDS SUMMARY | 2023-10-08 07:52 | External Medical Summary | Summary of Care ---
Author Name Unknown Organization [facility] Address [address] [place] [address] Phone [phone] Care Team Providers Care Latex Ribbon Machine Operator Name Role Phone Nati Darling DO Primary Care Provider Reason for Visit * Reason Onset Date Comments Anemia Follow-Up 09/26/2023 Encounter Details Date Type Department Care Team (Late st Contact Info) Description 09/26/2023 10:00 AM [facility] Pharm[facility] Pharmacy, [place] [address] [place] [address] Clinic, Anemia [address] [place] [address] Iron deficiency anemia, unspecified iron deficiency anemia [...] itching BILE ACIDS, FRACTIONATED AND TOTAL Order: [id number] Status: Final result Visible to patient: Yes [...] analytical performance characteristics have been determined by [employer]. It has not been cleared or approved by FDA. This assay has been validated pursuant to the CLIA regulations and is used for clinical purposes. Test performed by [employer] [facility] [address] [place] [address] Health Information Technician: Kayla Herrera MD,PHD,FABIAN Resulting Agency [employer] [facility] Bile Acids, Fractionated and Total 08/21/2023 SEE [...] LFTs 08/22/2023 Overview: Ask A Doc to [facility], requesting referral be placed. Hepatic Panel Results: [...] money to get more. Never true 06/08/2023 [place] Depression Scale Answer Date Recorded [place] Depression Scale Total 2 07/27/2023 The thought of harming myself has occurred to me . Never 07/27/2023 Estimated Date of Delivery Comme nts Yes 10/20/2023 Based on last me nstrual period of 01/13/2023 (Exact Date) Sex and Gender Information Value Date Recorded Sex Assigned at Female 02/08/2023 7:52 AM EDT Gender Identity Female 02/08/2023 7:52 AM EDT Sexual Orientation Straight 02/27/2023 9 :06 AM EDT Job Start Date Occupation Industry Not on file Not on file Not on file documented as of this encounter Progress Notes * Nova Wharton RP - 09/26/2023 2:31 PM EST Patient Phone Numbers Call to patient. Patient received Venofer 300 mg x 3 on 09/06, 09/13 and 09/20. LMOVM. GA: 36w4d Estimated Date of Delivery: 10/20/23 Given proximity to patient's due date, will not repeat any additional lab work. Anemia Clinic will sign off. Thank you for allowing us to participate in the care of this patient. Thanks, Nova Wharton [facility] Clinical Pharmacist [facility] Anemia Clinic (P: [phone]) 09/26/2023 2:32 PM documented in this encounter Plan of Treatment Upcoming Encounters Date Type Department Care Team (Late st Contact Info) Description 10/04/2023 1:45 PM EST Office Visit Gynecology/Obstetrics [facility] [address] [place] [address] Amy Bautista CRNP [address] [place] [address] Lizbeth Khan Stress Tests Olegario [address] [place] [address] 10/05/2023 9:15 AM EST Office Visit Tafe Teacher OB Maternal Medicine [facility] Juan Diego Gonzales [address] [place] [address] [address] [place] [address] Mg Christensen MD [address] [facility] [place] [id number] 10/05/2023 9:15 AM EST Imaging Maternal Medicine [facility] Juan Diego Gonzales [address] [place] [address] Dr [address] [place] [address] 03/14/2024 7:20 AM EDT Office Visit Family Practice [place] Jaye Kuo [facility] [place] [address] Nati Darling DO [facility] [place] [address] Health Maintenance Due Date Last Done Comments [...] anemia type- Primary documented in this encounter Care Teams Latex Ribbon Machine Operator Relationship Specialty Start Date End Date Nati Darling DO [address] [place] [address] [address] PCP - General Family Medicine 03/13/23 documented as of this encounter
--- OUTSIDE RECORDS SUMMARY | 2023-10-08 07:52 | External Medical Summary | Summary of Care ---
Author Name Unknown Organization [facility] Address [address] [place] [address] Phone [phone] Care Team Providers Care Forest Fire Lookout Name Role Phone Nati Darling DO Primary Care Provider Reason for Visit * Reason Comments Outpatient Testing Encounter Details Date Type Department Care Team (Late st Contact Info) Description 09/12/2023 3:00 PM EST Laboratory Laboratory, [facility] [address] [place] [phone] [facility] [address] [place] [address] Excessive growth affecting management of , antepartum, single or unspecified fetus Allergies No known [...] LFTs 08/22/2023 Overview: Ask A Doc to [facility], requesting referral be placed. Hepatic Panel [...] money to get more. Never true 06/08/2023 [place] Depression Scale Answer Date Recorded [place] Depression Scale Total 2 07/27/2023 The thought [...] on file documented as of this encounter Plan of Treatment Upcoming Encounters Date Type Department Care Team (Late st Contact Info) Description 09/13/2023 9:30 AM EST Hem/Onc Treatment Hematology/Oncology Treatment, [place] [address] [place] [address] Tessa, Chair 8 Hem Onc Scenery [address] [facility] [address] 09/18/2023 8:30 AM EST Office Visit Gynecology/Obstetrics [facility] [address] [place] [address] BackerZuleyma CRNP [address] [place] [address] 09/19/2023 10:00 AM EST Pharmacy Pharmacy, [place] [address] [place] [address] Clinic, Anemia [address] [place] [address] 09/20/2023 8:30 AM EST Hem/Onc Treatment Hematology/Oncology Treatment, [place] [address] [place] [address] Tessa, Chair 11 Hem Onc Scenery [address] [place] [address] 09/25/2023 8:00 AM EST Office Visit Gynecology/Obstetrics [facility] [address] [place] [address] Amy Bautista CRNP [address] [place] [address] 10/02/2023 8:00 AM EST Office Visit [facility]cology[facility] [address] [place] [address] Amy Bautista CRNP [address] [place] [address] 10/05/2023 9:15 AM EST Office Visit Life Guard OB Maternal Medicine [facility] Juan Diego Gonzales [address] [place] [address] Dr [address] [place] [address] Mg Christensen MD [address] [place] [facility] [place] [address] 10/05/2023 9:15 AM EST Imaging Maternal Medicine [facility] Juan Diego Gonzales [address] [place] [address] Dr [address] [place] [address] 10/09/2023 8:00 AM EST Office Visit Gynecology/Obstetrics [facility] [address] [place] [address] Amy Bautista CRNP [address] [place] [address] 10/16/2023 8:00 AM EST Office Visit Gynecology/Obstetrics [facility] [address] [place] [address] Amy Bautista CRNP [address] [place] [address] 10/23/2023 10:00 AM EST Office Visit Gynecology/Obstetrics [facility] [address] [place] [address] Amy Bautista CRNP [address] [place] [address] 03/14/2024 7:20 AM EDT Office Visit Family Practice [facility] 200 [facility] [place] [address] Nati Darling DO 200 [facility] [place] [address] Pending Results Name Type Priority Associated Diagnoses Date /Time 50-G GESTATIONAL GLUCOSE, 1 HOUR Lab Routine Excessive growth affecting management of , antepartum, single or unspecified fetus 09/12/2023 3:54 PM EST Health Maintenance Due Date Last [...] as of this encounter Visit Diagnoses Diagnosis Excessive growth affecting management of , antepartum, single or unspecified fetus documented in this encounter Care Teams Forest Fire Lookout Relationship Specialty Start Date End Date Nati Darling DO [address] [place] [address] PCP - General Family Medicine 03/13/23 documented as of this encounter
--- OUTSIDE RECORDS SUMMARY | 2023-10-08 07:52 | External Medical Summary | Summary of Care ---
Author Name Unknown Organization [facility] Address [address] [place] [address] Phone [phone] Care Team Providers Care On Line Csr Name Role Phone Nati Darling DO Primary Care Provider Reason for Visit * Reason Onset Date Comments Anemia Follow-Up 09/19/2023 Encounter Details Date Type Department Care Team (Late st Contact Info) Description 09/19/2023 10:00 AM [facility] Pharmacy Pharmacy, [place] [address] [place] [address] Clinic, Anemia [address] [place] [address] Iron deficiency anemia, unspecified iron deficiency anemia type* Allergies No known active allergiesdocumented as of this encounter (statuses as of 09/19/2023) Medications Medication Sig Dispensed Refills Start Date [...] as of this encounter (statuses as of 09/19/2023) Active Problems Problem Noted Date Diagnosed Date [...] itching BILE ACIDS, FRACTIONATED AND TOTAL Order: [id number] Status: Final result Visible to patient: Yes [...] analytical performance characteristics have been determined by [employer]. It has not been cleared or approved by FDA. This assay has been validated pursuant to the CLIA regulations and is used for clinical purposes. Test performed by [employer] [address] [place] [address] Virtual Assistant: Kayla Herrera MD,PHD,FABIAN Resulting Agency [employer] [facility] Bile Acids, Fractionated and Total 08/21/2023 [...] LFTs 08/22/2023 Overview: Ask A Doc to [facility], requesting referral be placed. Hepatic Panel [...] as of this encounter (statuses as of 09/19/2023) Resolved Problems Problem Noted Date Diagnosed Date Resolved Date Supervision of normal first 03/15/2023 09/04/2023 documented as of this encounter (statuses as of 09/19/2023) Immunizations Name Administration Dates Next Due DTaP [...] money to get more. Never true 06/08/2023 [place] Depression Scale Answer Date Recorded [place] Depression Scale Total 2 07/27/2023 The thought [...] this encounter Progress Notes * Nova Wharton [facility] - 09/19/2023 2:43 PM EST Patient received first 2 doses of Venofer 300 mg x 3 repletion series on 09/06 and 09/13 and appeared to have tolerated it without issue. Scheduled to be completed: 09/20 GA: 35w4d Estimated Date of Delivery: 10/20/23 Follow-up after completion of series to schedule repeat labs if appropriate prior to delivery. Anemia Clinic will continue to follow. Thank you for allowing us to participate in the care of thispatient. Thanks, Nova Wharton [facility] Clinical Pharmacist [facility] Anemia Clinic (P: [phone]) 09/19/2023 2:43 PM documented in this encounter Plan of Treatment Upcoming Encounters Date Type Department Care Team (Late st Contact Info) Description 09/20/2023 8:30 AM EST Hem/Onc Treatment Hematology/Oncology Treatment, [place] 200 [place] [address] Tessa, Chair 11 Hem Onc Scenery 200 [facility] [address] 09/24/2023 2:30 PM EST Pharmacy Pharmacy, [place] [address] [facility] [address] Clinic, [facility] [address] [facility] [address] 09/26/2023 2:30 PM EST Office Visit Gynecology/Obstetrics [facility] [address] [place] [address] Amy Bautista CRNP [address] [place] [address] KhanLizbeth galeas Stress Tests Olegario [place] [address] 10/04/2023 1:45 PM EST Office Visit Gynecology/Obstetrics Nik Khan [address] [facility] [place] [address] Amy Bautista CRNP [address] [place] [address] Lizbeth Khan Stress Tests Olegario [place] [address] 10/05/2023 9:15 AM EST Office Visit Helper Shear Operator OB Maternal Medicine [facility] Juan Diego Gonzales [address] [place] [address] Dr [address] [place] [address] Mg Christensen MD [address] [place] [address] 10/05/2023 9:15 AM EST Imaging Maternal Medicine [facility] Juan Diego Gonzales [address] [place] [address] Dr Sushant [address] [place] [address] 03/14/2024 7:20 AM EDT Office Visit Family Practice [facility] 200 [facility] [place], [place] [address] Nati Darling DO 200 [facility] [place] [address] Health Maintenance Due Date Last Done Comments [...] Primary documented in this encounter Care Teams On Line Csr Relationship Specialty Start Date End Date Nati Darling DO [address] [place] [address] PCP - General Family Medicine 03/13/23 documented as of this encounter
--- OUTSIDE RECORDS SUMMARY | 2023-10-08 07:52 | External Medical Summary | Summary of Care ---
Author Name Unknown Organization [facility] Address [address] [place] [address] Phone [phone] Care Team Providers Care Hub Cutter Apprentice Name Role Phone Nati Darling DO Primary Care Provider Reason for Visit * Reason Comments Non Stress Test Encounter Details Date Type Department Care Team (Late st Contact Info) Description 09/26/2023 2:30 PM EST Office Visit Gynecology/Obstetric s [facility] [address] [facility] [address] Amy Bautista CRNP [address] [place] [address] Bill Non Stress Tests Olegario [address] [place] [address] Supervision of high risk in third trimester*; [...] itching BILE ACIDS, FRACTIONATED AND TOTAL Order: [id number] Status: Final result Visible to patient: Yes [...] analytical performance characteristics have been determined by [employer]. It has not been cleared or approved by FDA. This assay has been validated pursuant to the CLIA regulations and is used for clinical purposes. Test performed by [employer] [facility] [address] [place] [address] Chemistry Quality Control Analyst: Kayla Herrera MD,PHD,FABIAN [facility] Agency [employer] [place] Bile Acids, Fractionated and Total 08/21/2023 SEE [...] LFTs 08/22/2023 Overview: Ask A Doc to [facility], requesting referral be placed. Hepatic [...] money to get more. Never true 06/08/2023 [place] Depression Scale Answer Date Recorded [place] Depression Scale Total 2 07/27/2023 The thought [...] in this encounter Progress Notes * Amy Bautisat CRNP - 09/26/2023 2:55 PM EST 36w4d No concerns. Taking actigall, but not having any itching. Baby is active. No contractions or bleeding. Has growth u/s scheduled with MFM. IOL scheduled at 38w. GBS today. Reagent Tender Helper Documentation Provider requested tar man. Name of tar man: Malgorzata ASSESSMENT assessment with Non-stress Test completed [...] Visit Gynecology/Obstetrics [facility] [address] [facility] [place] [address] Amy Bautista CRNP [address] [place] [address] Lizbeth Khan Stress Tests Olegario [address] [place] [address] 10/05/2023 9:15 AM EST Office Visit Hospice Clinical Marketer OB Maternal Medicine [facility] Juan Diego Gonzales [address] [place] [address] [address] [place] [address] Mg Christensen MD [address] [place] [address] 10/05/2023 9:15 AM EST Imaging Maternal Medicine [facility] Juan Diego Gonzales [address] [place] [address] Dr [address] [place] [address] 03/14/2024 7:20 AM EDT Office Visit Family Practice Ruperto [place] 200 [facility] [place], [place] [address] Nati Darling DO [address] [place] [address] Scheduled Orders Name Type Priority Associated Diagnoses Orde r Schedule GROUP B STREP CULTURE/PCR Lab Routine Supervision of high risk in third trimester Ordered: 09/26/2023 Health Maintenance Due Date Last Done Comments [...] antepartum documented in this encounter Care Teams Hub Cutter Apprentice Relationship Specialty Start Date End Date Nati Darling DO [address] [place] [address] PCP - General Family Medicine 03/13/23 documented as of this encounter
--- OUTSIDE RECORDS SUMMARY | 2023-10-08 07:52 | External Medical Summary | Summary of Care ---
Author Name Unknown Organization [facility] Address [address] [place] [address] Phone [phone] Care Team Providers Care Manager Storage Name Role Phone Nati Darling DO Primary Care Provider Reason for Visit * Reason Comments Infusion Venofer 2/3 Encounter Details Date Type Department Care Team (Latest Contact Info) Description 09/13/2023 9:30 AM EST Hem/Onc Treatment Hematology/Oncology Treatment, [address] [address] Tessa, Chair 8 Hem On[address] [address] Iron deficiency anemia, unspecified iron deficiency anemia type* Allergies No known active allergiesdocumented as of this encounter (statuses as of 09/13/2023) Medications Medication Sig Dispensed Refills Start Date [...] as of this encounter (statuses as of 09/13/2023) Active Problems Problem Noted Date Diagnosed Date [...] LFTs 08/22/2023 Overview: Ask A Doc to [facility], requesting referral be placed. Hepatic Panel Results: [...] as of this encounter (statuses as of 09/13/2023) Resolved Problems Problem Noted Date Diagnosed Date Resolved Date Supervision of normal first 03/15/2023 09/04/2023 documented as of this encounter (statuses as of 09/13/2023) Immunizations Name Administration Dates Next Due DTaP [...] money to get more. Never true 06/08/2023 [place] Depression Scale Answer Date Recorded [place] Depression Scale Total 2 07/27/2023 The thought [...] Sign Reading Time Taken Comments Blood Pressure 121/77 09/13/2023 9:58 AM EST Pulse 100 09/13/2023 9:58 AM EST Temperature 36.2 C (97.1 F) 09/13/2023 9:58 AM ES T Respiratory Rate 18 09/13/2023 9:58 AM EST Oxygen Saturation 97% 09/13/2023 9:58 AM EST Inhaled Oxygen Concentration - - Weight - - Height - - Body Mass Index - - documented in this encounter Nursing Notes * Chayito Carlin LPN - 09/13/2023 9:58 AM EST 0935: Chair 7. Pt arrived for Venofer 2/3 infusion. PIV in L metacarpal. Pt tolerated well. VSS. Nocomplaints at this time. 1115: Pt tolerated Venofer infusion well. PIV removed intact. Pt to return in one week. Discharged in stable condition. documented in this encounter Plan of Treatment Upcoming Encounters Date Type Department Care Team (Late st Contact Info) Description 09/18/2023 8:30 AM EST Office Visit Gynecology/Obstetrics [facility] [address] [address] BackerZuleyma CRNP [address] [place] [address] 09/19/2023 10:00 AM EST Pharmacy Pharmacy, [place] [address] [place] [address] Clinic, [facility] [address] [place] [address] 09/20/2023 8:30 AM EST Hem/Onc Treatment Hematology/Oncology Treatment, [place] [address] [place] [address] Tessa, Chair 11 Hem Onc [address] [place] [address] 09/25/2023 8:00 AM EST Office [facility] [address] [address] Amy Bautista CRNP [address] [place] [address] 10/02/2023 8:00 AM EST Office [facility] [address] [address] Amy Bautista CRNP [address] [place] [address] 10/05/2023 9:15 AM EST Office Visit Wildlife Policy Professional OB Maternal Medicine [facility] Juan Diego Gonzales [address] [place] [address] [address] [place] [address] Mg Christensen MD [address] [facility] [place] [address] 10/05/2023 9:15 AM EST [facility] Juan Diego Gonzales [address] [place] [address] Dr [place] [address] [place] [address] 10/09/2023 8:00 AM EST Office Visit Gynecology/Obstetrics [facility] [address] [place] [address] Amy Bautista CRNP [address] [place] [address] 10/16/2023 8:00 AM EST Office Visit Gynecology/Obstetrics [facility] [address] [place] [address] Amy Bautista CRNP [address] [place] [address] 10/23/2023 10:00 AM EST Office Visit Gynecology/Obstetrics [facility] [address] [place] [address] Amy Bautista CRNP [address] [place] [address] 03/14/2024 7:20 AM EDT Office Visit Family Practice [facility] [place] [address] [facility] [place], [place] [address] Nati Darling, [address] [facility] [place], [place] [address] Health Maintenance Due Date Last Done Comments [...] PRN Other, Hypersensitivity Reaction, Starting on Marli 09/13/23 at 0939, Until Sun09/14/23 at 0938, For 24 hours EPINEPHrine 1 MG/ML inj 0.3 mg 0.3 mg, Intramuscular, ONCE PRN Other, Hypersensitivity Reaction or Anaphylaxis, Starting on Marli 09/13/23 at 0939, Until Sun09/14/23 at 0938, For 24 hours hEParin 100 UNIT/ML Lock Flush inj 500 Units 500 Units (5 mL), IV Lock, PRN Other, IV Flush, Starting on Marli 09/13/23 at 0939, Until Sun09/14/23 at 0938, For 24 hours, Do not flush if lock, PICC, or central line not in place; IV infusing or unable to flush. Hydrocortisone Sod Suc (PF) (Solu-Cortef) inj 100 mg 100 mg, IV Push, ONCE PRN Other, Hypersensitivity Reaction, Starting on Marli 09/13/23 at 0939, Until Sun09/14/23 at 0938, For 24 hours NSS infusion 500 mL, Intravenous, at 50 mL/hr, CONTINUOUS, Starting on Marli 09/13/23 at 1045, Until Sun09/13/23 at 2044 Start Infusion 09/13/2023 9:39 AM EST 500 mL 50 mL/hr oxygen GAS Inhalation, OXYGEN, First dose on Marli 09/13/23 at 1015, Until Discontinued, Device/Managed by: Low Flow Device, [...] PRN Other, IV Flush, Starting on Marli 09/13/23 at 0939, Until Sun09/14/23 at 0938, For 24 hours, Do not flush if lock, PICC, or central line not in place; IV infusing or unable to flush. Inactive Administered Medications - up to 3 most recent administrations Medication Order MAR Action Action Date Dose Rate Site Iron Sucrose (Venofer) 300 mg in NSS 250 mL ivpb 300 mg, IV Piggyback, ONCE, 1 dose, On Marli 09/13/23 at 1115, Administer over 90 Minutes Start Infusion 09/13/2023 9:39 AM EST 300 mg 166.67 mL/hr documented in this encounter Care Teams Manager Storage Relationship Specialty Start Date End Date Nati Darling DO [address] [place] [address] PCP - General Family Medicine 03/13/23 documented as of this encounter
--- OUTSIDE RECORDS SUMMARY | 2023-10-08 07:52 | External Medical Summary | Summary of Care ---
Author Name Unknown Organization [facility] Address [address] [place] [address] Phone [phone] Care Team Providers Care Marketing Development Representative Name Role Phone Nati Darling DO Primary Care Provider Reason for Visit * Reason Comments Non Stress Test Return Visit Encounter Details Date Type Department Care Team (Late st Contact Info) Description 09/18/2023 8:30 AM EST Office Visit Gynecology/Obstetric s [facility] [address] [place] [address] Zuleyma Beltran CRNP [address] [facility] [address] Supervision of high risk in third trimester*; Rubella non-immune status, antepartum; Rh negative status during in third trimester; Elevated LFTs; Cholestasis during in third trimester; Excessive growth affecting management of in third trimester, single or unspecified fetus Allergies No known active allergiesdocumented as of this encounter (statuses as of 09/18/2023) Medications Medication Sig Dispensed Refills Start Date [...] as of this encounter (statuses as of 09/18/2023) Active Problems Problem Noted Date Diagnosed Date [...] itching BILE ACIDS, FRACTIONATED AND TOTAL Order: [id number] Status: Final result Visible to patient: Yes [...] analytical performance characteristics have been determined by [employer]. It has not been cleared or approved by FDA. This assay has been validated pursuant to the CLIA regulations and is used for clinical purposes. Test performed by [employer] [facility] [address] [place] [address] Marine Engine Mechanic: Kayla Herrera MD,PHD,FABIAN Resulting Agency [employer] [place] Bile Acids, Fractionated and Total 08/21/2023 SEE [...] LFTs 08/22/2023 Overview: Ask A Doc to [facility], requesting referral be placed. Hepatic Panel Results: [...] as of this encounter (statuses as of 09/18/2023) Resolved Problems Problem Noted Date Diagnosed Date Resolved Date Supervision of normal first 03/15/2023 09/04/2023 documented as of this encounter (statuses as of 09/18/2023) Immunizations Name Administration Dates Next Due DTaP [...] money to get more. Never true 06/08/2023 [place] Depression Scale Answer Date Recorded [place] Depression Scale Total 2 07/27/2023 The thought [...] Sign Reading Time Taken Comments Blood Pressure 118/74 09/18/2023 8:36 AM EST Pulse - - Temperature - - Respiratory Rate - - Oxygen Saturation - - Inhaled Oxygen Concentration - - Weight 95.3 kg (210 lb) 09/18/2023 8:36 AM EST Height - - Body Mass Index 31.01 09/04/2023 8:27 AM EST documented in this encounter Progress Notes * Zuleyma Beltran CRNP - 09/18/2023 8:38 AM EST ASSESSMENT assessment with Non-stress Test completed on 09/18/2023 at 35.3 weeks gestation for indication of cholestasis heart baseline: 140 bpm Variability: Moderate Decelerations: absent Accelerations: present Contractions: None NST start time: 0833 NST stop time: 0857 NST strip reviewed, interpreted, and approved by OB provider, LASHAWN Rose. NST strip stored in clinic storage file Good movement. No ctx, leaking/bleeding. Most recent bile acids 9.7. Per MFM, recommend delivery at 38 weeks if they are <40. Discussed induction, pt ok with scheduling. Return in 1 week for NST/OBI. LASHAWN Rose documented in this encounter Plan of Treatment Upcoming Encounters Date Type Department Care Team (Late st Contact Info) Description 09/19/2023 10:00 AM EST Pharmacy Pharmacy, [place] [phone] Clinic, [place] [address] [place] [facility] [place] [address] 09/20/2023 8:30 AM EST Hem/Onc Treatment Hematology/Oncology Treatment, [place] [address] [place] [address] Park, Chair 11 Hem Onc Scenery [address] [place] [address] 09/26/2023 2:30 PM EST Office Visit Gynecology/Obstetrics [facility] [address] [place] [address] Amy Bautista CRNP [address] [place] [address] Bill Non Stress Tests [facility] [address] [place] [address] 10/04/2023 1:45 PM EST Office Visit Gynecology/Obstetrics [facility] [address] [place] [address] Amy Bautista CRNP [address] [place] [address] Bill Non Stress Tests [facility] [address] [place] [address] 10/05/2023 9:15 AM EST Office Visit C D Reactor Operator OB Maternal Medicine [facility] Juan Diego Gonzales [address] [place] [address] Dr [address] [place] [address] Mg Christensen MD [address] [facility] [place] [address] 10/05/2023 9:15 AM EST Imaging Maternal Medicine [facility] Juan Diego Gonzales [address] [place] [address] Dr [address] [place] [address] 03/14/2024 7:20 AM EDT Office Visit Family [facility] [address] [place] [address] Nati Darling DO [address] [facility] [place] [address] Health Maintenance Due Date Last Done Comments [...] fetus documented in this encounter Care Teams Marketing Development Representative Relationship Specialty Start Date End Date Nati Darling DO [address] [place] [address] [address] PCP - General Family Medicine 03/13/23 documented as of this encounter
--- OUTSIDE RECORDS SUMMARY | 2023-10-08 07:52 | External Medical Summary | Summary of Care ---
Author Name Unknown Organization [facility] Address [address] [place] [address] Phone [phone] Care Team Providers Care Parking Officer Name Role Phone Nati Darling DO Primary Care Provider Reason for Visit * Reason Comments Infusion Venofer 11/17 Encounter Details Date Type Department Care Team (Latest Contact Info) Description 09/20/2023 8:30 AM EST Hem/Onc Treatment Hematology/Oncology Treatment, [address] [address] Tessa, Chair 11 Hem On[address] [address] Iron deficiency anemia, unspecified iron deficiency anemia type* Allergies No known active allergiesdocumented as of this encounter (statuses as of 09/20/2023) Medications Medication Sig Dispensed Refills Start Date [...] as of this encounter (statuses as of 09/20/2023) Active Problems Problem Noted Date Diagnosed Date [...] itching BILE ACIDS, FRACTIONATED AND TOTAL Order: [id number] Status: Final result Visible to patient: Yes [...] analytical performance characteristics have been determined by [employer]. It has not been cleared or approved by FDA. This assay has been validated pursuant to the CLIA regulations and is used for clinical purposes. Test performed by [facility] [address] [facility] [address] Business Office Technician: Kayla Herrera MD,PHD,FABIAN Resulting Agency [employer] [place] Bile Acids, Fractionated and Total 08/21/2023 SEE [...] LFTs 08/22/2023 Overview: Ask A Doc to [facility], requesting referral be placed. Hepatic Panel Results: [...] as of this encounter (statuses as of 09/20/2023) Resolved Problems Problem Noted Date Diagnosed Date Resolved Date Supervision of normal first 03/15/2023 09/04/2023 documented as of this encounter (statuses as of 09/20/2023) Immunizations Name Administration Dates Next Due DTaP [...] money to get more. Never true 06/08/2023 [place] Depression Scale Answer Date Recorded [place] Depression Scale Total 2 07/27/2023 The thought [...] Sign Reading Time Taken Comments Blood Pressure 130/83 09/20/2023 8:49 AM EST Pulse 100 09/20/2023 8:49 AM EST Temperature 36.5 C (97.7 F) 09/20/2023 8:49 AM ES T Respiratory Rate 18 09/20/2023 8:49 AM EST Oxygen Saturation 96% 09/20/2023 8:49 AM EST Inhaled Oxygen Concentration - - Weight - - Height - - Body Mass Index - - documented in this encounter Nursing Notes * Chayito Carlin LPN - 09/20/2023 8:51 AM EST 0830: Pt arrived for Venofer 3/3 infusion. PIV in L metacarpal. Pt tolerated well. VSS. No complaints at this time. 1010: Pt tolerated Venofer infusion well. PIV removed intact. Pt to follow up with MD. Discharged in stable condition. documented in this encounter Plan of Treatment Upcoming Encounters Date Type Department Care Team (Late st Contact Info) Description 09/24/2023 2:30 PM EST Pharmacy Pharmacy, [place] [address] [place] [address] Clinic, Anemia [address] [place] [address] 09/26/2023 2:30 PM EST Office Visit Gynecology/Obstetrics Nik [facility] [address] [facility] [place] [address] Amy Bautista CRNP [address] [place] [address] Khan, Non Stress Tests [facility] [address] [place] [address] 10/04/2023 1:45 PM EST Office Visit Gynecology/Obstetrics Nik Khan [address] [place] [address] Amy Bautista CRNP [address] [place] [address] Bill Non Stress Tests [facility] [address] [place] [address] 10/05/2023 9:15 AM EST Office Visit Mobile Phlebotomist OB Maternal Medicine [facility] Juan Diego Gonzales [address] [place] [address] Dr Sushant [address] [facility] [address] Mg Christensen MD [address] [place] [address] 10/05/2023 9:15 AM EST Imaging Maternal Medicine [facility] Juan Diego Gonzales [address] [place] [address] Dr [address] [place] [address] 03/14/2024 7:20 AM EDT Office Visit Family Practice [facility] [place] [address] [place] [address] Nati Darling, [address] [place] [address] Health Maintenance Due Date Last Done Comments [...] PRN Other, Hypersensitivity Reaction, Starting on Marli 09/20/23 at 0834, Until Sun09/21/23 at 0833, For 24 hours EPINEPHrine 1 MG/ML inj 0.3 mg 0.3 mg, Intramuscular, ONCE PRN Other, Hypersensitivity Reaction or Anaphylaxis, Starting on Marli 09/20/23 at 0834, Until Sun09/21/23 at 0833, For 24 hours hEParin 100 UNIT/ML Lock Flush inj 500 Units 500 Units (5 mL), IV Lock, PRN Other, IV Flush, Starting on Marli 09/20/23 at 0834, Until Sun09/21/23 at 0833, For 24 hours, Do not flush if lock, PICC, or central line not in place; IV infusing or unable to flush. Hydrocortisone Sod Suc (PF) (Solu-Cortef) inj 100 mg 100 mg, IV Push, ONCE PRN Other, Hypersensitivity Reaction, Starting on Marli 09/20/23 at 0834, Until Sun09/21/23 at 0833, For 24 hours NSS infusion 500 mL, Intravenous, at 50 mL/hr, CONTINUOUS, Starting on Marli 09/20/23 at 0945, Until Marli 09/20/23 at 1944 Start Infusion 09/20/2023 8:34 AM EST 500 mL 50 mL/hr oxygen GAS Inhalation, OXYGEN, First dose on Marli 09/20/23 at 0915, Until Discontinued, Device/Managed by: Low Flow Device, [...] PRN Other, IV Flush, Starting on Marli 09/20/23 at 0834, Until Sun09/21/23 at 0833, For 24 hours, Do not flush if lock, PICC, or central line not in place; IV infusing or unable to flush. Inactive Administered Medications - up to 3 most recent administrations Medication Order MAR Action Action Date Dose Rate Site Iron Sucrose (Venofer) 300 mg in NSS 250 mL ivpb 300 mg, IV Piggyback, ONCE, 1 dose, On Marli 09/20/23 at 1015, Administer over 90 Minutes Start Infusion 09/20/2023 8:34 AM EST 300 mg 166.67 mL/hr documented in this encounter Care Teams Parking Officer Relationship Specialty Start Date End Date Nati Darling DO [address] [place] [address] PCP - General Family Medicine 03/13/23 documented as of this encounter
--- OUTSIDE RECORDS SUMMARY | 2023-10-08 07:52 | External Medical Summary | Summary of Care ---
Author Name Unknown Organization [facility] Address [address] [place] [address] Phone [phone] Care Team Providers Care Director Global Development Name Role Phone Nati Darling DO Primary Care Provider Encounter Details Date Type Department Care Team (Late st Contact Info) Description 09/11/2023 Telephone [facility] [address] [place] [address] Amy Bautista CRNP [address] [address] Allergies No known active allergiesdocumented as of this encounter (statuses as of 09/11/2023) Medications Medication Sig Dispensed Refills Start Date [...] as of this encounter (statuses as of 09/11/2023) Active Problems Problem Noted Date Diagnosed Date [...] LFTs 08/22/2023 Overview: Ask A Doc to [facility], requesting referral be placed. Hepatic Panel Results: [...] as of this encounter (statuses as of 09/11/2023) Resolved Problems Problem Noted Date Diagnosed Date Resolved Date Supervision of normal first 03/15/2023 09/04/2023 documented as of this encounter (statuses as of 09/11/2023) Immunizations Name Administration Dates Next Due DTaP [...] money to get more. Never true 06/08/2023 [place] Depression Scale Answer Date Recorded [place] Depression Scale Total 2 07/27/2023 The thought [...] encounter Miscellaneous Notes * Telephone Encounter - Chayito Zarate RN - 09/11/2023 11:05 AM EST Pt is aware and agreeable. She will stop by to do this. * Telephone Encounter - Amy Bautista CRNP - 09/11/2023 10:08 AM EST Per MFM note, baby is LGA. Recommend repeat glucola. Order placed. documented in this encounter Plan of Treatment Upcoming Encounters Date Type Department Care Team (Late st Contact Info) Description 09/12/2023 2:15 PM EST Office Visit Gynecology/Obstetrics [facility] [address] [place] [address] Zuleyma Beltran CRNP [address] [place] [address] Bill, Non Stress Tests [facility] [address] [place] [address] 09/13/2023 9:30 AM EST Hem/Onc Treatment Hematology/Oncology Treatment, [place] [address] [place] [address] Tessa, Chair 8 Hem Onc [facility] [address] [facility], [place] [address] 09/18/2023 8:30 AM EST Office Visit Gynecology/Obstetrics Nik Khan [address] [place] [address] BackerZuleyma CRNP [address] [place] [address] 09/19/2023 10:00 AM EST Pharmacy Pharmacy, [place] [address] [place] [address] Clinic, Anemia [address] [place] [address] 09/20/2023 8:30 AM EST Hem/Onc Treatment Hematology/Oncology Treatment, [place] [address] [place] [address] Tessa, Chair 11 Hem Onc [facility] [address] [facility], [place] [address] 09/25/2023 8:00 AM EST Office Visit Gynecology/Obstetrics [facility] [place] [address] [place] [address] Amy Bautista CRNP [address] [place] [address] 10/02/2023 8:00 AM EST Office Visit Gynecology/Obstetrics Harry[facility] Bill [address] [place] [address] Amy Bautista CRNP [address] [place] [address] 10/05/2023 9:15 AM EST Office Visit [facility] Juan Diego Gonzales [address] [place] [address] [address] [place] [address] Mg Christensen MD [address] [place] [address] 10/05/2023 9:15 AM EST Imaging Maternal Medicine [facility] Juan Diego Gonzales [address] [place] [address] Dr Sushant [address] [place] [address] 10/09/2023 8:00 AM EST Office Visit Gynecology/Obstetrics [facility] [address] [place] [address] Amy Bautista CRNP [address] [place] [address] 10/16/2023 8:00 AM EST Office Visit Gynecology/Obstetrics [facility] [address] [place] [address] Amy Bautista CRNP [address] [place] [address] 10/23/2023 10:00 AM EST Office Visit Gynecology/Obstetrics [facility] [address] [place] [address] Amy Bautista CRNP [address] [place] [address] 03/14/2024 7:20 AM EDT Office Visit Family Practice [facility] [place] [address] [facility] [place] [address] Nati Darling DO 200 [facility] [place] [address] Scheduled Orders Name Type Priority Associated Diagnoses Orde r Schedule 50-G GESTATIONAL GLUCOSE, 1 HOUR Lab Routine Excessive growth affecting management of , antepartum, single or unspecified fetus Expected: 09/11/2023 (Approximate), Expires: 09/11/2024 Health Maintenance Due Date Last Done Comments [...] management of , antepartum, single or unspecified fetus- Primary documented in this encounter Care Teams Director Global Development Relationship Specialty Start Date End Date Nati Darling DO [address] [place] [address] PCP - General Family Medicine 03/13/23 documented as of this encounter
--- OUTSIDE RECORDS SUMMARY | 2023-10-08 07:52 | External Medical Summary | Summary of Care ---
Author Name Unknown Organization [facility] Address [address] [place] [address] Phone [phone] Care Team Providers Care Display Fabrication Supervisor Name Role Phone Nati Darling DO Primary Care Provider Reason for Visit * Reason Comments Non Stress Test Return Visit Encounter Details Date Type Department Care Team (Late st Contact Info) Description 09/18/2023 8:30 AM EST Office Visit Gynecology/Obstetric s [facility] [address] [place] [address] Zuleyma Beltran CRNP [address] [place] [address] Supervision of high risk in third trimester*; [...] itching BILE ACIDS, FRACTIONATED AND TOTAL Order: [id number] Status: Final result Visible to patient: Yes [...] analytical performance characteristics have been determined by [facility]. It has not been cleared or approved by FDA. This assay has been validated pursuant to the CLIA regulations and is used for clinical purposes. Test performed by [facility] [address] [place] [address] Rouge Presser: Kayla Herrera MD,PHD,FABIAN Resulting Agency [facility] [place] Bile Acids, Fractionated and Total 08/21/2023 SEE [...] LFTs 08/22/2023 Overview: Ask A Doc to [facility], requesting referral be placed. Hepatic Panel [...] money to get more. Never true 06/08/2023 Irene Depression Scale Answer Date Recorded Irene Depression Scale Total 2 07/27/2023 The thought [...] scheduling. Return in 1 week for NST/OBI. LAHSAWN Rose documented in this encounter Plan of Treatment Upcoming Encounters Date Type Department Care Team (Late st Contact Info) Description 09/19/2023 10:00 AM EST Pharmacy Pharmacy, [place] [phone] Clinic, Anemia [address] [place] [address] 09/20/2023 8:30 AM EST Hem/Onc Treatment Hematology/Oncology Treatment, [place] [address] [place] [address] Park, Chair 11 Hem Onc Scenery [address] [place] [address] 09/25/2023 8:00 AM EST Office Visit Gynecology/Obstetrics [facility] [address] [place] [address] Amy Bautitsa CRNP [address] [place] [address] 10/02/2023 8:00 AM EST Office Visit Gynecology/Obstetrics [facility] [address] [place] [address] Amy Bautista CRNP [address] [place] [address] 10/05/2023 9:15 AM EST Office Visit [facility] Maternal Medicine [facility] Juan Diego Gonzales [address] [place] [address] [address] [place] [address] Mg Christensen MD [address] [facility] [place] [address] 10/05/2023 9:15 AM EST Imaging Maternal Medicine [facility] Juan Diego Gonzales [address] [place] [address] [address] [place] [address] 10/09/2023 8:00 AM EST Office Visit Gynecology/Obstetrics [facility] [address] [place] [address] Amy Bautista CRNP [address] [place] [address] 10/16/2023 8:00 AM EST Office Visit Gynecology/Obstetrics [facility] [address] [place] [address] Amy Bautista CRNP [address] [place] [address] 10/23/2023 10:00 AM EST Office Visit Gynecology/Obstetrics [facility] [address] [place] [address] Amy Bautista CRNP [address] [place] [address] 03/14/2024 7:20 AM EDT Office Visit Family Practice [facility] [place] [address] [facility] [place] [address] Nati Darling, [address] [facility] [place] [address] Health Maintenance Due Date Last Done Comments [...] fetus documented in this encounter Care Teams Display Fabrication Supervisor Relationship Specialty Start Date End Date Nati Darling DO [address] [place] [address] PCP - General Family Medicine 03/13/23 documented as of this encounter
--- OUTSIDE RECORDS SUMMARY | 2023-10-08 07:52 | External Medical Summary ---
Author Name Unknown Address Unknown Organization K01:[facility] [place] [address] [facility] [address] [facility] [address] Laboratory Report Ordering Provider Test Date Status AZEEM VASQUEZ 09/26/2023 15:37:29 Final Observation Date Value Abnormality Reference (Units ) Status Streptococcus agalactiae DNA [Presence] in Specimen by SAVANNA with probe detection 09/26/2023 15:37:29 Negative Negative Final No Group B Streptococcus det ected by culture-enhanced PCR (amplified probe).
The collection of vaginal/rectal swab specimen combinations (FDA approved specimen type) is optimal for the detection of Group B Streptococcus. Single source collection (vaginal only or rectal only) or alternate specimen sources may lead to false negative results. Performing Location [facility] [place] [address] [facility] [address]
--- OUTSIDE RECORDS SUMMARY | 2023-10-08 07:53 | External Medical Summary | Summary of Care ---
Author Name Unknown Organization [facility] Address [address] [place] [address] Phone [phone] Care Team Providers Care Photocomposing Machine Operator Name Role Phone Nati Darling DO Primary Care Provider Reason for Visit * Reason Comments Return Visit Non Stress Test Encounter Details Date Type Department Care Team (Late st Contact Info) Description 09/04/2023 8:30 AM EST Office Visit Gynecology/Obstetric s [facility] [address] [facility] [place] [address] Zuleyma Belrtan CRNP [address] [address] High-risk in third trimester*; Rubella non-immune status, antepartum; Rh negative status during in third trimester; Elevated LFTs; Cholestasis during in third trimester Allergies No known active allergiesdocumented as of this encounter (statuses as of 09/04/2023) Medications Medication Sig Dispensed Refills Start Date [...] as of this encounter (statuses as of 09/04/2023) Active Problems Problem Noted Date Diagnosed Date High-risk 09/04/2023 Cholestasis during in third trimester 09/03/2023 Overview: Bile acids 13.8 at 32w. Rx for Actigall BID 09/04/23 Elevated LFTs 08/22/2023 Overview: Ask A Doc to [facility], requesting referral be placed. Iron deficiency anemia 08/21/2023 Rubella non-immune status, antepartum 03/19/2023 Rh negative status during 03/19/2023 Estimated Date of Delivery Comme nts Yes 10/20/2023 Based on last me nstrual period of 01/13/2023 (Exact Date) documented as of this encounter (statuses as of 09/04/2023) Resolved Problems Problem Noted Date Diagnosed Date Resolved Date Supervision of normal first 03/15/2023 09/04/2023 documented as of this encounter (statuses as of 09/04/2023) Immunizations Name Administration Dates Next Due DTaP [...] money to get more. Never true 06/08/2023 [place] Depression Scale Answer Date Recorded [place] Depression Scale Total 2 07/27/2023 The thought [...] Sign Reading Time Taken Comments Blood Pressure 108/66 09/04/2023 8:27 AM EST Pulse - - Temperature - - Respiratory Rate - - Oxygen Saturation - - Inhaled Oxygen Concentration - - Weight 94.3 kg (208 lb) 09/04/2023 8:27 AM EST Height 175.3 cm (5' 9") 09/04/2023 8:27 AM EST Body Mass Index 30.72 09/04/2023 8:27 AM EST documented in this encounter Progress Notes * Zuleyma Beltran CRNP - 09/04/2023 8:28 AM EST 33w3d Good movement. Denies leaking/bleeding or ctx. Recent diagnosis of cholestasis, bile acids 13.8. Has an MFM appt on Sunday for elevated LFTs, staff message sent to Dr Quintanilla with FYI of new diagnosis. Discussed cholestasis. Rx Actigall, start weekly NSTs. Reviewed [facility] and to call with any decrease or concerns. Recheck bile acids today. NST category 1. ASSESSMENT assessment with Non-stress Test completed on 09/04/2023 at 33.3 weeks gestation for indication of cholestasis heart baseline: 140 bpm Variability: Moderate Decelerations: absent Accelerations: present Contractions: None NST start time: 827 NST stop time: 855 NST strip reviewed, interpreted, and approved by OB provider, LASHAWN Rose. NST strip stored in clinic storage file LASHAWN Rose documented in this encounter Miscellaneous Notes * Pt Handout (on AVS) - Zuleyma Beltran CRNP - 09/04/2023 8:36 AM EST [id number] Cholestasis of What is cholestasis of ? Cholestasis of is a liver problem. It slows or stops the normal flow of bile from the gallbladder. This causes itching and yellowing of your skin, eyes, and mucous membranes (jaundice). Cholestasis sometimes starts in early . But it is more common in the second and third trimesters. It most often goes away within a few days after delivery. The high levels of bile may cause serious problems for your developing baby (fetus). What causes cholestasis of ? Healthcare providers don't know what causes cholestasis of . They do know that this happens: Your liver makes bile. Bile helps break down fats during digestion. The gallbladder stores the bile. The hormones your body releases during change the way the gallbladder works. This may cause bile to slow or stop flowing. Bile builds up in the liver and spills into the bloodstream. What are the symptoms of cholestasis of ? The main symptom of cholestasis of is severe itching. This is sometimes called pruritus. It may be all over the body. But it is more common on the palms of the hands and soles of the feet. It may also be worse at night. Other symptoms may include: Pain in the belly (abdomen), although this is not common Light color of stool (bowel movements) Yellow color of skin, eyes, and mucous membranes (jaundice), although this is not common The symptoms of cholestasis sometimes look like other health conditions. Always see your healthcareprovider for a diagnosis. How is cholestasis of diagnosed? Your healthcare provider is likely to think you have cholestasis of if you have severe itching. Lab tests will help to confirm the diagnosis. You may have these tests: Liver function tests, including the amount of bile acid in the blood. This test result is high in cholestasis of . Other lab tests, including prothrombin time. This checks how well your blood clots. You may also have other tests, such as an ultrasound exam of the tubes that carry bile (bile ducts). How is cholestasis of treated? You and your healthcare provider will discuss the best treatment for you based on: Your Your overall health and health history How sick you are How well you can handle certain medicines, procedures, or therapies The goals of treating cholestasis of are to relieve the itching and prevent complications. Treatment may include: Medicine. To help relieve itching and help lower the level of bile. Measuring serum total bile acid. The level of bile in your blood may be checked. This helps yourhealthcare provider figure out treatment. monitoring. The healthcare provider may check your developing baby for any problems. Early delivery. You may deliver your baby early, between 37 to 38 weeks of . This will lessen the risk to your baby. This may be by vaginal delivery with medicine to start labor. Or you may have a delivery. Your healthcare provider may decide that you should deliver even earlier, depending on your symptoms, test results, and history. What are possible complications of cholestasis of ? There is a serious risk of complications in your developing baby if you have cholestasis of . The complications include: distress. This means your developing baby is not doing well. For example, the baby may notbe getting enough oxygen. . You may be at greater risk for giving too early. Meconium in amniotic fluid. This means your baby has a bowel movement before . This may cause very serious breathing problems. Breathing (respiratory) problems. Your baby may have breathing problems as a . Cholestasis of can also lead to vitamin K deficiency. This will need to be treated beforeyou give , because it can cause you to bleed too much. When should I call my healthcare provider? Call your healthcare provider if you have: Severe itching Yellow coloring of your eyes, skin, or mucous membranes (jaundice) Sandra points about cholestasis of Cholestasis of is a condition that slows or stops the normal flow of bile in the gallbladder. It can cause severe itching. This is the most common symptom. The goals of treating cholestasis of are to relieve itching and prevent complications for your developing baby. Babies of women with cholestasis are often delivered early (usually around 37 weeks) because of the risks. Next steps Tips to help you get the most from a visit to your healthcare provider: Know the reason for your visit and what you want to happen. Before your visit, write down questions you want answered. Bring someone with you to help you ask questions and remember what your provider tells you. At the visit, write down the name of a new diagnosis, and any new medicines, treatments, or tests. Also write down any new instructions your provider gives you. Know why a new medicine or treatment is prescribed, and how it will help you. Also know what theside effects are. Ask if your condition can be treated in other ways. Know why a test or procedure is recommended and what the results could mean. Know what to expect if you do not take the medicine or have the test or procedure. If you have a follow-up appointment, write down the date, time, and purpose for that visit. Know how you can contact your provider if you have questions. Last Reviewed Date: 10/18/202219991735-2108 [employer]. All rights reserved. This information is not intended as a substitute for professional medical care. Always follow your healthcare professional's instructions. * Pt Handout (on AVS) - Zuleyma Beltran CRNP - 09/04/2023 8:36 AM EST [id number] Cholestasis of What is cholestasis of ? Cholestasis of is a liver problem. It slows or stops the normal flow of bile from the gallbladder. This causes itching and yellowing of your skin, eyes, and mucous membranes (jaundice). Cholestasis sometimes starts in early . But it is more common in the second and third trimesters. It most often goes away within a few days after delivery. The high levels of bile may cause serious problems for your developing baby (fetus). What causes cholestasis of ? Healthcare providers don't know what causes cholestasis of . They do know that this happens: Your liver makes bile. Bile helps break down fats during digestion. The gallbladder stores the bile. The hormones your body releases during change the way the gallbladder works. This may cause bile to slow or stop flowing. Bile builds up in the liver and spills into the bloodstream. What are the symptoms of cholestasis of ? The main symptom of cholestasis of is severe itching. This is sometimes called pruritus. It may be all over the body. But it is more common on the palms of the hands and soles of the feet. It may also be worse at night. Other symptoms may include: Pain in the belly (abdomen), although this is not common Light color of stool (bowel movements) Yellow color of skin, eyes, and mucous membranes (jaundice), although this is not common The symptoms of cholestasis sometimes look like other health conditions. Always see your healthcareprovider for a diagnosis. How is cholestasis of diagnosed? Your healthcare provider is likely to think you have cholestasis of if you have severe itching. Lab tests will help to confirm the diagnosis. You may have these tests: Liver function tests, including the amount of bile acid in the blood. This test result is high in cholestasis of . Other lab tests, including prothrombin time. This checks how well your blood clots. You may also have other tests, such as an ultrasound exam of the tubes that carry bile (bile ducts). How is cholestasis of treated? You and your healthcare provider will discuss the best treatment for you based on: Your Your overall health and health history How sick you are How well you can handle certain medicines, procedures, or therapies The goals of treating cholestasis of are to relieve the itching and prevent complications. Treatment may include: Medicine. To help relieve itching and help lower the level of bile. Measuring serum total bile acid. The level of bile in your blood may be checked. This helps yourhealthcare provider figure out treatment. monitoring. The healthcare provider may check your developing baby for any problems. Early delivery. You may deliver your baby early, between 37 to 38 weeks of . This will lessen the risk to your baby. This may be by vaginal delivery with medicine to start labor. Or you may have a delivery. Your healthcare provider may decide that you should deliver even earlier, depending on your symptoms, test results, and history. What are possible complications of cholestasis of ? There is a serious risk of complications in your developing baby if you have cholestasis of . The complications include: distress. This means your developing baby is not doing well. For example, the baby may notbe getting enough oxygen. . You may be at greater risk for giving too early. Meconium in amniotic fluid. This means your baby has a bowel movement before . This may cause very serious breathing problems. Breathing (respiratory) problems. Your baby may have breathing problems as a . Cholestasis of can also lead to vitamin K deficiency. This will need to be treated beforeyou give , because it can cause you to bleed too much. When should I call my healthcare provider? Call your healthcare provider if you have: Severe itching Yellow coloring of your eyes, skin, or mucous membranes (jaundice) Sandra points about cholestasis of Cholestasis of is a condition that slows or stops the normal flow of bile in the gallbladder. It can cause severe itching. This is the most common symptom. The goals of treating cholestasis of are to relieve itching and prevent complications for your developing baby. Babies of women with cholestasis are often delivered early (usually around 37 weeks) because of the risks. Next steps Tips to help you get the most from a visit to your healthcare provider: Know the reason for your visit and what you want to happen. Before your visit, write down questions you want answered. Bring someone with you to help you ask questions and remember what your provider tells you. At the visit, write down the name of a new diagnosis, and any new medicines, treatments, or tests. Also write down any new instructions your provider gives you. Know why a new medicine or treatment is prescribed, and how it will help you. Also know what theside effects are. Ask if your condition can be treated in other ways. Know why a test or procedure is recommended and what the results could mean. Know what to expect if you do not take the medicine or have the test or procedure. If you have a follow-up appointment, write down the date, time, and purpose for that visit. Know how you can contact your provider if you have questions. Last Reviewed Date: 10/18/202219994359-0036 [employer]. All rights reserved. This information is not intended as a substitute for professional medical care. Always follow your healthcare professional's instructions. documented in this encounter Plan of Treatment Upcoming Encounters Date Type Department Care Team (Late st Contact Info) Description 09/04/2023 9:50 AM EST Laboratory Laboratory, [facility] [address] [place] [address] [facility] [address] [place] [address] Arrived 09/04/2023 4:00 PM EST Pharmacy Pharmacy, [place] [address] [place] [address] Clinic, Anemia [address] [place] [address] Iron deficiency anemia, unspecified iron deficiency anemia type* 09/07/2023 7:45 AM EST Office Visit [facility] Maternal Medicine [facility] Juan Diego Gonzales [address] [place] [address] [address] [facility] [place] [address] Mona Quintanilla DO [address] [place] [address] 09/07/2023 7:45 AM EST Imaging Maternal Medicine [facility] Juan Diego Gonzales [address] [place] [address] Dr [place] [address] [place] [address] 09/11/2023 10:00 AM EST Pharmacy Pharmacy, [place] [address] [place] [address] Clinic, Anemia [address] [place] [address] 09/18/2023 8:30 AM EST Office Visit Gynecology/Obstetric s [facility] [address] [place] [address] Zuleyma Beltran CRNP [address] [place] [address] 09/25/2023 8:00 AM EST Office Visit Gynecology/Obstetric s [facility] [address] [place] [address] Amy Bautista CRNP [address] [place] [address] 10/02/2023 8:00 AM EST Office Visit Gynecology/Obstetric s [facility] [address] [place] [address] Amy Bautista CRNP [address] [place] [address] 10/09/2023 8:00 AM EST Office Visit Gynecology/Obstetric s [facility] [address] [place] [address] Amy Bautista CRNP [address] [place] [address] 10/16/2023 8:00 AM EST Office Visit Gynecology/Obstetric s [facility] [address] [place] [address] Amy Bautista CRNP [address] [place] [address] 10/23/2023 10:00 AM EST Office Visit Gynecology/Obstetric s [facility] [address] [place] [address] Amy Bautista CRNP [address] [place] [address] 03/14/2024 7:20 AM EDT Office Visit Family Practice [facility] [address] [place] [address] Nati Darling DO [address] [place] [address] Scheduled Orders Name Type Priority Associated Diagnoses Orde r Schedule BILE ACIDS, FRACTIONATED AND TOTAL Lab Routine Cholestasis during in third trimester Expected: 09/04/2023, Expires: 09/04/2024 Health Maintenance Due Date Last Done Comments [...] as of this encounter Visit Diagnoses Diagnosis High-risk in third trimester- Primary Rubella non-immune status, antepartum Other specified complication, antepartum Rh negative status during in third trimester Elevated LFTs Other abnormal blood chemistry Cholestasis during in third trimester Iron deficiency anemia, unspecified iron deficiency anemia type- Primary documented in this encounter Care Teams Photocomposing Machine Operator Relationship Specialty Start Date End Date Nati Darling DO [address] [place] [place] [address] PCP - General Family Medicine 6/27/23 documented as of this encounter
--- OUTSIDE RECORDS SUMMARY | 2023-10-08 07:53 | External Medical Summary | Summary of Care ---
Author Name Unknown Organization [facility] Address [address] [place] [address] Phone [phone] Care Team Providers Care Fringe Knotter Name Role Phone Nati Darling DO Primary Care Provider Encounter Details Date Type Department Care Team (Late st Contact Info) Description 09/04/2023 Orders Only Hematology/Oncology [facility] [address] [place] [address] Love Queen PA-C [address] [place] [address] Allergies No known active allergiesdocumented as of [...] Cholestasis during in third trimester 09/03/2023 Overview: Elevated LFTs 08/22/2023 Overview: Ask A Doc to [facility], requesting referral be placed. Iron deficiency anemia [...] money to get more. Never true 06/08/2023 [place] Depression Scale Answer Date Recorded [place] Depression Scale Total 2 07/27/2023 The thought [...] Team (Late st Contact Info) Description 09/04/2023 2:45 PM EST Telemedicine Special Delivery Worker Obstetrics Maternal Medicine, [place] [address] [place] [address] Ivy Patel CRNP [address] [place] [address] 09/04/2023 4:00 PM EST Pharmacy Pharmacy, [place] [address] [place] [address] Clinic, [place] [address] [place] [address] Iron deficiency anemia, unspecified iron deficiency anemia type* 09/07/2023 7:45 AM EST Office Visit Special Delivery Worker OB Maternal Medicine [facility] Juan Diego Gonzales [address] [place] [address] [address] [place] [address] Mona Quintanilla, DO [address] [place] [address] 09/07/2023 7:45 AM EST Imaging [facility] Juan Diego Gonzales [address] [place] [address] Dr [address] [place] [address] 09/11/2023 10:00 AM EST Pharmacy Pharmacy, [place] [address] [place] [address] Clinic, [facility] [address] [place] [address] 09/12/2023 2:15 PM EST Office Visit Gynecology/Obstetric s [facility] [address] [place] [address] Zuleyma Beltran CRNP [address] [place] [address] Blil Non Stress Tests [facility] [address] [place] [address] 09/18/2023 8:30 AM EST Office Visit Gynecology/Obstetric s [facility] [address] [place] [address] Zuleyma Beltran CRNP [address] [place] [address] 09/25/2023 8:00 AM EST Office Visit Gynecology/Obstetric s [facility] [address] [place] [address] Amy Bautista CRNP [address] [place] [address] 10/02/2023 8:00 AM EST Office Visit Gynecology/Obstetric s [facility] [address] [place] [address] Amy Bautista CRNP [address] [place] [address] 10/09/2023 8:00 AM EST Office Visit Gynecology/Obstetric s [facility] [address] [place], [place] [address] Amy Bautista CRNP [address] [place] [address] 10/16/2023 8:00 AM EST Office Visit Gynecology/Obstetric s [facility] [address] [place] [address] Amy Bautista CRNP [address] [place] [address] 10/23/2023 10:00 AM EST Office Visit Gynecology/Obstetric s [facility] [address] [place] [address] Amy Bautista CRNP [address] [place] [address] 03/14/2024 7:20 AM EDT Office Visit Family Practice [facility] [address] [place] [address] Nati Darling, 200 [place] [address] Health Maintenance Due Date Last Done Comments [...] filedocumented as of this encounter Care Teams Fringe Knotter Relationship Specialty Start Date End Date Nati Darling DO [address] [place], [place] [id number] PCP - General Family Medicine 03/13/23 documented as of this encounter
--- OUTSIDE RECORDS SUMMARY | 2023-10-08 07:53 | External Medical Summary | Summary of Care ---
Author Name Unknown Organization [facility] Address [address] [place] [address] Phone [phone] Care Team Providers Care On Call Pharmacy Technician Name Role Phone Nati Darling DO Primary Care Provider Encounter Details Date Type Department Care Team (Late st Contact Info) Description 09/04/2023 Orders Only Pharmacy, [place] [facility] [address] [place] [address] [facility] [address] [place] [address] Allergies No known active allergiesdocumented as of [...] LFTs 08/22/2023 Overview: Ask A Doc to [facility], requesting referral be placed. Hepatic Panel [...] money to get more. Never true 06/08/2023 [place] Depression Scale Answer Date Recorded [place] Depression Scale Total 2 07/27/2023 The thought [...] Team (Late st Contact Info) Description 09/04/2023 4:00 PM EST Pharmacy Pharmacy, [facility] [address] [place] [address] Clinic, [place] [address] [place] [address] Iron deficiency anemia, unspecified iron deficiency anemia type* 09/07/2023 7:45 AM EST Office Visit Research Biostatistician OB Maternal Medicine [facility] Juan Diego Gonzales [address] [place] [address] Dr [address] [facility] [place] [address] Mona Quintanilla DO [address] [place] [address] 09/07/2023 7:45 AM EST Imaging Maternal Medicine [facility] Juan Diego Gonzales [address] [place] [address] Dr [address] [place] [address] 09/11/2023 10:00 AM EST Pharmacy Pharmacy, [facility] [address] [place] [address] Clinic, [place] [address] [place] [address] 09/12/2023 2:15 PM EST Office Visit Gynecology/Obstetric s [facility] [address] [facility] [place] [address] Zuleyma Beltran CRNP [address] [place] [address] Lizbeth Khan Stress Tests [facility] [address] [place] [address] 09/18/2023 8:30 AM EST Office Visit Gynecology/Obstetric s [facility] [address] [place] [address] Zuleyma Beltran, BAIL ATTACHER [address] [place] [address] 09/25/2023 8:00 AM EST Office Visit Gynecology/Obstetric s [facility] [address] [place] [address] Amy Bautista BAIL ATTACHER [address] [place] [address] 10/02/2023 8:00 AM EST Office Visit Gynecology/Obstetric s [facility] [address] [place] [address] Amy Bautista BAIL ATTACHER [address] [place] [address] 10/09/2023 8:00 AM EST Office Visit Gynecology/Obstetric s [facility] [address] [place] [address] Amy Bautista BAIL ATTACHER [address] [place] [address] 10/16/2023 8:00 AM EST Office Visit Gynecology/Obstetric s [facility] [address] [place] [address] Amy Bautista BAIL ATTACHER [address] [place] [address] 10/23/2023 10:00 AM EST Office Visit Gynecology/Obstetric s [facility] [address] [place] [address] Amy Bautista BAIL ATTACHER [address] [place] [address] 03/14/2024 7:20 AM EDT Office Visit Family Practice [employer] [address] [place] [address] Nait Darling DO [address] [facility] [place] [address] Health Maintenance Due Date Last Done Comments [...] filedocumented as of this encounter Care Teams On Call Pharmacy Technician Relationship Specialty Start Date End Date Nati Darling DO [address] [place] [address] PCP - General Family Medicine 03/13/23 documented as of this encounter
--- OUTSIDE RECORDS SUMMARY | 2023-10-08 07:53 | External Medical Summary ---
Author Name Unknown Address Unknown Organization : Laboratory Report Ordering Provider Test Date Status YESENIA CARDONA 09/05/2023 07:26:37 Final Observation Date Value Abnormality Reference (Units ) Status Bile acid [Moles/volume] in Serum --fasting 09/05/2023 07:26:37 SEE BELOW Abnormal Final TESTS--------- ----RESULTS--------UNITS--REF. RANGE---
Cholic Acid 5.8 H umol/L < OR = 1.8
Deoxycholic Acid 0.6 umol/L < OR = 2.4
Chenodeoxycholic Acid 3.3 H umol/L < OR = 3.1
Total Bile Acids 9.7 H umol/L < OR = 6.8
This test was developed and its analytical
performance characteristics have been determined
by [facility]. It has not been cleared or
approved by FDA. This assay has been validated
pursuant to the CLIA regulations and is used for
clinical purposes.
Test performed by [facility]
[address],
[place] [address]

In School Suspension Coordinator: Kayla Herrera MD,PHD,FABIAN Performing Location
--- OUTSIDE RECORDS SUMMARY | 2023-10-08 07:53 | External Medical Summary | Summary of Care ---
Author Name Unknown Organization [facility] Address [address] [place] [address] Phone [phone] Care Team Providers Care Plastic Sheets Supervisor Name Role Phone Nati Darling DO Primary Care Provider Encounter Details Date Type Department Care Team (Late st Contact Info) Description 09/04/2023 Telephone Hematology/Oncology [facility] [address] [place] [address] Love Queen PA-C [address] [place] [address] Allergies No known active allergiesdocumented as of this encounter (statuses as of 09/05/2023) Medications Medication Sig Dispensed Refills Start Date [...] as of this encounter (statuses as of 09/05/2023) Active Problems Problem Noted Date Diagnosed Date [...] LFTs 08/22/2023 Overview: Ask A Doc to [facility], requesting referral be placed. Hepatic Panel [...] as of this encounter (statuses as of 09/05/2023) Resolved Problems Problem Noted Date Diagnosed Date Resolved Date Supervision of normal first 03/15/2023 09/04/2023 documented as of this encounter (statuses as of 09/05/2023) Immunizations Name Administration Dates Next Due DTaP [...] money to get more. Never true 06/08/2023 [place] Depression Scale Answer Date Recorded [place] Depression Scale Total 2 07/27/2023 The thought [...] encounter Miscellaneous Notes * Telephone Encounter - Gerardo Quevedo RN - 09/05/2023 9:40 AM EST [place] plan signed. Scheduling- Please call patient to schedule "Venofer 09/19" (Bret). Patient will need weekly infusions x 3. Thank you! * Telephone Encounter - Gerardo Quevedo RN - 09/04/2023 12:30 PM EST [place] plan built and sent to [facility] as requested. Will await signature. No auth required for IV Venofer. documented in this encounter Plan of Treatment Upcoming Encounters Date Type Department Care Team (Late st Contact Info) Description 09/07/2023 7:45 AM EST Office Visit Accountant Machine Processing OB Maternal Medicine [facility] Juan Diego Gonzales [address] [place] [address] [address] [facility] [address] Mona Quintanilla, [address] [place] [address] 09/07/2023 7:45 AM EST Imaging Maternal Medicine [facility] Juan Diego Gonzales [address] [place] [address] Dr [address] [place] [address] 09/11/2023 10:00 AM EST Pharmacy Pharmacy, [place] [address] [place] [address] Clinic, [facility] [address] [place] [address] 09/12/2023 2:15 PM EST Office Visit Gynecology/Obstetrics [facility] [address] [place] [address] Zuleyma Beltran CRNP [address] [place] [address] Khan, Non Stress Tests [facility] [address] [place] [address] 09/18/2023 8:30 AM EST Office Visit Gynecology/Obstetrics [facility] [address] [place] [address] Zuleyma Beltran CRNP [address] [place] [address] 09/25/2023 8:00 AM EST Office Visit Gynecology/Obstetrics [facility] [address] [place] [address] Amy Bautista CRNP [address] [place] [address] 10/02/2023 8:00 AM EST Office Visit Gynecology/Obstetrics [facility] [address] [place] [address] Amy Bautista CRNP [address] [place] [address] 10/09/2023 8:00 AM EST Office Visit Gynecology/Obstetrics [facility] [address] [place] [address] Amy Bautista CRNP [address] [place] [address] 10/16/2023 8:00 AM EST Office Visit Gynecology/Obstetrics [facility] [address] [place] [address] Amy Bautista CRNP [address] [place] [address] 10/23/2023 10:00 AM EST Office Visit Gynecology/Obstetrics [facility] [address] [place] [address] Amy Bautista CRNP [address] [place] [address] 03/14/2024 7:20 AM EDT Office Visit Family Practice [facility] [place] [address] [place] [address] Nati Darling DO [address] [place] [address] [address] Health Maintenance Due Date Last Done Comments [...] Years) Completed 07/17/2000, 01/03/2000 MENINGOCOCCAL (MENACTRA/MENVEO) Completed , 08/03/2010 Influenza Vaccine (FLU shot) Completed 06/15/2023 documented as of this encounter Medical Devices Not on filedocumented as of this encounter Care Teams Plastic Sheets Supervisor Relationship Specialty Start Date End Date Nati Darling DO [address] [facility] [place] [address] PCP - General Family Medicine 03/13/23 documented as of this encounter
--- OUTSIDE RECORDS SUMMARY | 2023-10-08 07:53 | External Medical Summary | Summary of Care ---
Author Name Unknown Organization [facility] Address [address] [place] [address] Phone [phone] Care Team Providers Care Field Placement Director Name Role Phone Nati Darling DO Primary Care Provider Encounter Details Date Type Department Care Team (Late st Contact Info) Description 09/04/2023 Telephone Hematology/Oncology [facility] [address] [place] [address] Love Queen PA-C [address] [place] [address] Allergies No known active allergiesdocumented as of [...] LFTs 08/22/2023 Overview: Ask A Doc to [facility], requesting referral be placed. Hepatic Panel [...] money to get more. Never true 06/08/2023 [place] Depression Scale Answer Date Recorded [place] Depression Scale Total 2 07/27/2023 The thought [...] Quevedo RN - 09/05/2023 9:40 AM EST [place] plan signed. Scheduling- Please call patient to schedule "Venofer /" (Bret). Patient will need weekly infusions x 3. Thank you! * Telephone Encounter - Gerardo Quevedo RN - 09/04/2023 12:30 PM EST [place] plan built and sent to [facility] as requested. Will await signature. No auth required for IV Venofer. documented in this encounter Plan of Treatment Upcoming Encounters Date Type Department Care Team (Late st Contact Info) Description 09/06/2023 1:45 PM EST Hem/Onc Treatment Hematology/Oncology Treatment, [place] [address] [place] [address] Tessa, Chair 7 Hem Onc Scenery [address] [place] [address] 09/07/2023 7:45 AM EST Office Visit Air Valve Repairer OB Maternal Medicine [facility] Juan Diego Gonzales [address] [place] [address] DwightMona rankin, DO [address] [place] [address] 09/07/2023 7:45 AM EST Imaging Maternal Medicine [facility] Juan Diego Gonzales [address] [place] [address] Dr Sushant [address] [place] [address] 09/11/2023 10:00 AM EST Pharmacy Pharmacy, [place] [address] [place], [place] [address] Clinic, [facility] [address] [place] [address] 09/12/2023 2:15 PM EST Office Visit Gynecology/Obstetrics [facility] [address] [place] [address] Zuleyma Beltran CRNP [address] [place] [address] Bill Non Stress Tests Oleg[facility] [address] [place] [address] 09/18/2023 8:30 AM EST Office Visit Gynecology/Obstetrics [facility] [address] [place] [address] Zuleyma Beltran CRNP [address] [place] [address] 09/25/2023 8:00 AM EST Office Visit Gynecology/Obstetrics [facility] [address] [place] [address] Amy Bautista CRNP [address] [place] [address] 10/02/2023 8:00 AM EST Office Visit Gynecology/Obstetrics [facility] [address] [place] [address] Amy Bautista CRNP [address] [place] [address] 10/09/2023 8:00 AM EST Office Visit Gynecology/Obstetrics [facility] [address] [place], [place] [address] Amy Bautista CRNP [address] [place] [address] 10/16/2023 8:00 AM EST Office Visit Gynecology/Obstetrics [facility] [address] [place] [address] Amy Bautista CRNP [address] [place] [address] 10/23/2023 10:00 AM EST Office Visit Gynecology/Obstetrics [facility] [address] [place] [address] Amy Bautista CRNP [address] [place] [address] 03/14/2024 7:20 AM EDT Office Visit Family Practice [facility] [address] [place] [facility] [place] [address] Nati Darling, 200 [place] [address] Health Maintenance Due Date Last Done Comments [...] filedocumented as of this encounter Care Teams Field Placement Director Relationship Specialty Start Date End Date Nati Draling DO [address] [place] [address] PCP - General Family Medicine 03/13/23 documented as of this encounter
--- OUTSIDE RECORDS SUMMARY | 2023-10-08 07:53 | External Medical Summary | Summary of Care ---
Author Name Unknown Organization [facility] Address [address] [place] [address] Phone [phone] Care Team Providers Care Urologist Physician Name Role Phone Nati Darling DO Primary Care Provider Encounter Details Date Type Department Care Team (Late st Contact Info) Description 09/03/2023 Telephone Gynecology/Obstetrics [address] [place] [address] Amy Bautista CRNP [address] [place] [address] Allergies No known active allergiesdocumented as of this encounter (statuses as of 09/03/2023) Medications Medication Sig Dispensed Refills Start Date End Date Status 19 29-1 MG Oral Tablet Chewable Take by mouth. 0 Active Vitamin B-12 1000 MCG Oral Tablet (Cyanocobalamin) Take 1 Tablet by mouth in the morning. 30 Tablet 5 08/08/2023 Active documented as of this encounter (statuses as of 09/03/2023) Active Problems Problem Noted Date Diagnosed Date Cholestasis during in third trimester 09/03/2023 Overview: Bile acids 13.8 at 32w. Elevated LFTs 08/22/2023 Overview: Ask A Doc to [facility], requesting referral be placed. Iron deficiency anemia 08/21/2023 Rubella non-immune status, antepartum 03/19/2023 Rh negative status during 03/19/2023 Supervision of normal first 03/15/2023 Estimated Date of Delivery Comme nts Yes 10/20/2023 Based on last me nstrual period of 01/13/2023 (Exact Date) documented as of this encounter (statuses as of 09/03/2023) Immunizations Name Administration Dates Next Due DTaP [...] money to get more. Never true 06/08/2023 [place] Depression Scale Answer Date Recorded [place] Depression Scale Total 2 07/27/2023 The thought [...] encounter Miscellaneous Notes * Telephone Encounter - Tamiko Lombardi LPN - 09/03/2023 2:44 PM EST Patient notified and is able to stay for NST. * Telephone Encounter - Amy Bautista CRNP - 09/03/2023 2:37 PM EST Bile acids just received, 13.8. Diagnostic of cholestasis. She has an appt tomorrow. Will need NST with appt. Make sure she can stay for NST. documented in this encounter Plan of Treatment Upcoming Encounters Date Type Department Care Team (Late st Contact Info) Description 09/04/2023 8:30 AM EST Office Visit Gynecology/Obstetrics [facility] [address] [place] [address] Zuleyma Beltran CRNP [address] [place] [address] 09/04/2023 4:00 PM EST Pharmacy Pharmacy, [place] [address] [place] [address] Clinic, [facility] [address] [place] [address] 09/07/2023 7:45 AM EST Office Visit Cold Saw Operator OB Maternal Medicine [facility] Juan Diego Gonzales [address] [place] [address] [address] [place] [address] DwightMona rankin, [address] [place] [address] 09/07/2023 7:45 AM EST Imaging Maternal Medicine [facility] Juan Diego Gonzales [address] [place] [address] [address] [place] [address] 09/18/2023 8:30 AM EST Office Visit Gynecology/Obst[facility]s [facility] [address] [place] [address] Zuleyma Beltran CRNP [address] [place] [address] 09/25/2023 8:00 AM EST Office Visit Gynecology/Obstetrics [facility] [address] [place] [address] Amy Bautista CRNP [address] [place] [address] 10/02/2023 8:00 AM EST Office Visit Gynecology/Obstetrics [facility] [address] [place] [address] Amy Bautista CRNP [address] [place] [address] 10/09/2023 8:00 AM EST Office Visit Gynecology/Obstetrics [facility] [address] [place] [address] Amy Bautista CRNP [address] [place] [address] 10/16/2023 8:00 AM EST Office Visit Gynecology/Obstetrics [facility] [address] [place] [address] Amy Bautista CRNP [address] [place] [address] 10/23/2023 10:00 AM EST Office Visit Gynecology/Obstetrics [facility] [address] [place] [address] Amy Bautista CRNP [address] [place] [address] 03/14/2024 7:20 AM EDT Office Visit Family Practice [facility] [address] [place] [address] Nati Darling, 200 [facility] [place] [address] Health Maintenance Due Date Last Done Comments [...] filedocumented as of this encounter Care Teams Urologist Physician Relationship Specialty Start Date End Date Nati Darling DO [facility] [place] [address] PCP - General Family Medicine 03/13/23 documented as of this encounter
--- OUTSIDE RECORDS SUMMARY | 2023-10-08 07:53 | External Medical Summary | Summary of Care ---
Author Name Unknown Organization [facility] Address [address] [place] [address] Phone [phone] Care Team Providers Care Photographer Aerial Name Role Phone Nati Darling DO Primary Care Provider Reason for Visit * Reason Comments Outpatient Testing Encounter Details Date Type Department Care Team (Late st Contact Info) Description 09/05/2023 7:30 AM EST Laboratory Laboratory, [facility] [address] [place] [phone] [facility] [address] [place], [place] [id number] Cholestasis during in third trimester Allergies No [...] LFTs 08/22/2023 Overview: Ask A Doc to [facility], requesting referral be placed. Hepatic Panel [...] money to get more. Never true 06/08/2023 [place] Depression Scale Answer Date Recorded [place] Depression Scale Total 2 07/27/2023 The thought [...] Description 09/07/2023 7:45 AM EST Office Visit Continuous Improvement Engineer OB Maternal Medicine [facility] Juan Diego Gonzales [address] [place] [address] [address] [place] [address] Mona Quintanilla, [address] [place] [address] 09/07/2023 7:45 AM EST Imaging Maternal Medicine [facility] Juan Diego Gonzales [address] [place] [address] [address] [place] [address] 09/11/2023 10:00 AM EST Pharmacy Pharmacy, [facility] [address] [place], [place] [address] Clinic, [facility] [address] [place] [address] 09/12/2023 2:15 PM EST Office Visit Gynecology/Obstetrics [facility] [address] [place] [address] Backer, LASHAWN Lopez [address] [place] [address] Lizbeth Khan Stress Tests [facility] [address] [place] [address] 09/18/2023 8:30 AM EST Office Visit Gynecology/Obstetrics [facility] [address] [place] [address] Zuleyma Beltran CRNP [address] [place] [address] 09/25/2023 8:00 AM EST Office Visit Gynecology/Obstetrics [facility] [address] [place] [address] Amy Bautista CRNP [address] [place] [address] 10/02/2023 8:00 AM EST Office Visit Gynecology/Obstetrics [facility] [address] [place] [address] Amy Bautista CRNP [address] [place] [address] 10/09/2023 8:00 AM EST Office Visit Gynecology/Obstetrics [facility] [address] [place] [address] Amy Bautista CRNP [address] [place] [address] 10/16/2023 8:00 AM EST Office Visit Gynecology/Obstetrics [facility] [address] [place] [address] Amy Bautista CRNP [address] [place] [address] 10/23/2023 10:00 AM EST Office Visit Gynecology/Obstetrics [facility] [address] [place] [address] Amy Bautista CRNP [address] [place] [address] 03/14/2024 7:20 AM EDT Office Visit Family [address], [place] [address] Nati Darling DO [address] [place] [address] Pending Results Name Type Priority Associated Diagnoses Date /Time BILE ACIDS, FRACTIONATED AND TOTAL Lab Routine Cholestasis during in third trimester 09/05/2023 7:26 AM EST Health Maintenance Due Date Last Done [...] Visit Diagnoses Diagnosis Cholestasis during in third trimester documented in this encounter Care Teams Photographer Aerial Relationship Specialty Start Date End Date Nati Darling DO [address] [place] [address] PCP - General Family Medicine 03/13/23 documented as of this encounter
--- OUTSIDE RECORDS SUMMARY | 2023-10-08 07:53 | External Medical Summary | Summary of Care ---
Author Name Unknown Organization [facility] Address [address] [place] [address] Phone [phone] Care Team Providers Care Cyber Security Consultant Name Role Phone Nati Darling DO Primary Care Provider Reason for Visit * Reason Comments Outpatient Testing Encounter Details Date Type Department Care Team (Late st Contact Info) Description 09/04/2023 9:50 AM EST Laboratory Laboratory, [facility] [address] [place] [address] [facility] [address] [place] [address] Arrived Allergies No known active allergiesdocumented as of [...] LFTs 08/22/2023 Overview: Ask A Doc to M, requesting referral be placed. Iron deficiency anemia [...] money to get more. Never true 06/08/2023 [place] Depression Scale Answer Date Recorded [place] Depression Scale Total 2 07/27/2023 The thought [...] Description 09/04/2023 4:00 PM EST Pharmacy Pharmacy, [place] [address] [place] [address] Clinic, [facility] [address] [place] [address] 09/07/2023 7:45 AM EST Office Visit [facility] [address] [place] [address] [address] [place] [address] Mona Quintanilla, DO [address] [place] [address] 09/07/2023 7:45 AM EST [facility] [address] [place] [address] [address] [place], [place] [address] 09/18/2023 8:30 AM EST Office Visit Gynecology/Obstetrics [facility] [address] [place] [address] Backer, Zuleyma Dailey, LASHAWN [address] [place] [address] 09/25/2023 8:00 AM EST Office Visit Gynecology/Obstetrics [facility] [address] [place] [address] Amy Bautista CRNP [address] [place] [address] 10/02/2023 8:00 AM EST Office Visit Gynecology/Obstetrics [facility] [address] [place] [address] Amy Bautista CRNP [address] [place] [address] 10/09/2023 8:00 AM EST Office Visit Gynecology/Obstetrics [facility] [address] [place] [address] Amy Bautista CRNP [address] [place] [address] 10/16/2023 8:00 AM EST Office Visit Gynecology/Obstetrics [facility] [address] [place] [address] Amy Bautista CRNP [address] [place] [address] 10/23/2023 10:00 AM EST Office Visit Gynecology/Obstetrics [facility] [address] [place] [address] Amy Bautista CRNP [address] [place] [address] 03/14/2024 7:20 AM EDT Office Visit Family Practice [facility] [address] [place] [address] Nati Darling DO [address] [facility] [place] [address] Health Maintenance Due Date Last Done Comments [...] filedocumented as of this encounter Care Teams Cyber Security Consultant Relationship Specialty Start Date End Date Nati Darling DO [address] [place] [address] PCP - General Family Medicine 03/13/23 documented as of this encounter
--- OUTSIDE RECORDS SUMMARY | 2023-10-08 07:53 | External Medical Summary | Summary of Care ---
Author Name Unknown Organization [facility] Address [address] [place] [address] Phone [phone] Care Team Providers Care Spike Maker Name Role Phone Nati Darling DO Primary Care Provider Encounter Details Date Type Department Care Team (Late st Contact Info) Description 09/04/2023 Telephone Hematology/Oncology [facility] [address] [place] [address] Love Queen PA-C [address] [place] [address] Allergies No known active allergiesdocumented as of [...] LFTs 08/22/2023 Overview: Ask A Doc to [facility], requesting referral be placed. Iron deficiency [...] money to get more. Never true 06/08/2023 [place] Depression Scale Answer Date Recorded [place] Depression Scale Total 2 07/27/2023 The thought [...] Quevedo RN - 09/04/2023 12:30 PM EST [place] plan built and sent to [facility] as requested. Will await signature. No auth required for IV Venofer. documented in this encounter Plan of Treatment Upcoming Encounters Date Type Department Care Team (Late st Contact Info) Description 09/04/2023 2:45 PM EST Telemedicine Acquisition Advisor Obstetrics Maternal Medicine, [address] [address] Ivy Patel CRNP [facility] [place] [address] 09/04/2023 4:00 PM EST Pharmacy Pharmacy, [address] [place] [address] Clinic, [facility] [address] [place] [address] Iron deficiency anemia, unspecified iron deficiency anemia type* 09/07/2023 7:45 AM EST Office Visit Acquisition Advisor OB Maternal Medicine [facility] Juan Diego Gonzales [address] [place] [address] Dr [address] [place] [address] Mona Quintanilla, DO [address] [place] [address] 09/07/2023 7:45 AM EST Imaging Maternal Medicine [facility] Juan Diego Gonzales [address] [place] [address] Dr Sushant [address] [place] [address] 09/11/2023 10:00 AM EST Pharmacy Pharmacy, [place] [address] [place] [address] Clinic, Anemia [address] [place] [address] 09/12/2023 2:15 PM EST Office Visit Gynecology/Obstetric s [facility] [address] [place] [address] Zuleyma Beltran CRNP [address] [place] [address] Khan, Non Stress Tests [facility] [address] [place] [address] 09/18/2023 8:30 AM EST Office Visit Gynecology/Obstetric s [facility] [address] [place] [address] Zuleyma Beltran CRNP [address] [place] [address] 09/25/2023 8:00 AM EST Office Visit Gynecology/Obstetric s [facility] [address] [place] [address] Amy Bautista CRNP [address] [place], [place] [address] 10/02/2023 8:00 AM EST Office Visit Gynecology/Obstetric s [facility] [address] [place] [address] Amy Bautista CRNP [address] [place], [place] [address] 10/09/2023 8:00 AM EST Office Visit Gynecology/Obstetric s [facility] [address] [place], [place] [address] Amy Bautista CRNP [address] [place], [place] [address] 10/16/2023 8:00 AM EST Office Visit Gynecology/Obstetric s [facility] [address] [place], [place] [address] Amy Bautista CRNP [address] [place], [place] [address] 10/23/2023 10:00 AM EST Office Visit Gynecology/Obstetric s [facility] [address] [place], [place] [address] Amy Bautista CRNP [address] [place], [place] [address] 03/14/2024 7:20 AM EDT Office Visit Family Practice [facility] 200 [facility] [place] [address] Nati Darling, 200 [place] [address] Health Maintenance Due Date Last Done Comments [...] filedocumented as of this encounter Care Teams Spike Maker Relationship Specialty Start Date End Date Nati Darling DO [address] [place] [address] PCP - General Family Medicine 03/13/23 documented as of this encounter
--- OUTSIDE RECORDS SUMMARY | 2023-10-08 07:53 | External Medical Summary | Summary of Care ---
Author Name Unknown Organization [facility] Address [address] [place] [address] Phone [phone] Care Team Providers Care Professional Housing Consultant Name Role Phone Nati Darling DO Primary Care Provider Encounter Details Date Type Department Care Team (Late st Contact Info) Description 09/04/2023 Orders Only Gynecology/Obstetrics [facility] [address] [facility] [place] [address] Love Queen PA-C [address] [place] [address] Iron deficiency anemia, unspecified iron deficiency anemia [...] money to get more. Never true 06/08/2023 [place] Depression Scale Answer Date Recorded [place] Depression Scale Total 2 07/27/2023 The thought [...] Description 09/04/2023 9:50 AM EST Laboratory Laboratory, [facility] 132 [place] [id number] [facility] [address] [place] [address] Arrived 09/04/2023 4:00 PM EST Pharmacy Pharmacy, [place] [address] [place] [address] Clinic, Anemia [address] [place] [address] Iron deficiency anemia, unspecified iron deficiency anemia type* 09/07/2023 7:45 AM EST Office Visit Staffing Mgr [facility] [address] [place] [address] Dr [address] [place] [address] Mona Quintanilla, DO [address] [place] [address] 09/07/2023 7:45 AM EST [facility] [address] [place] [address] [address] [facility] [address] 09/11/2023 10:00 AM EST Pharmacy Pharmacy, [place] [address] [place], [place] [id number] Clinic, Anemia [address] [place] [address] 09/12/2023 2:15 PM EST Office Visit Gynecology/Obstetric s [facility] [address] [place] [address] Zuleyma Beltran CRNP [address] [place] [address] Bill, Non Stress Tests [facility] [address] [place] [address] 09/18/2023 8:30 AM EST Office Visit Gynecology/Obstetric s [facility] [address] [place] [address] Zuleyma Beltran CRNP [address] [place] [address] 09/25/2023 8:00 AM EST Office Visit Gynecology/Obstetric s [facility] [address] [place] [address] Amy Bautista CRNP [address] [place] [address] 10/02/2023 8:00 AM EST Office Visit Gynecology/Obstetric s [facility] [address] [place] [address] Amy Bautista CRNP [address] [place], [place] [address] 10/09/2023 8:00 AM EST Office Visit Gynecology/Obstetric s [facility] [address] [place], [place] [address] Aym Bautista CRNP [address] [place], [place] [address] 10/16/2023 8:00 AM EST Office Visit Gynecology/Obstetric s [facility] [address] [place], [place] [address] Amy Bautista CRNP [address] [place] [address] 10/23/2023 10:00 AM EST Office Visit Gynecology/Obstetric s [facility] [address] [place], [place] [address] Amy Bautista CRNP [address] [place], [place] [address] 03/14/2024 7:20 AM EDT Office Visit Family Practice [facility] 200 [facility], [place] [address] Nati Darling, 200 [facility] [place] [address] Health Maintenance Due Date Last Done Comments [...] anemia, unspecified iron deficiency anemia type- Primary Iron deficiency anemia, unspecified iron deficiency anemia type- Primary documented in this encounter Care Teams Professional Housing Consultant Relationship Specialty Start Date End Date Nati Darling DO [address] [place] [address] PCP - General Family Medicine 03/13/23 documented as of this encounter
--- OUTSIDE RECORDS SUMMARY | 2023-10-08 07:53 | External Medical Summary | Summary of Care ---
Author Name Unknown Organization [facility] Address [address] [place] [address] Phone [phone] Care Team Providers Care Silica Spray Mixer Name Role Phone Nati Darling DO Primary Care Provider Reason for Visit * Reason Onset Date Comments Anemia Follow-Up 09/04/2023 Encounter Details Date Type Department Care Team (Late st Contact Info) Description 09/04/2023 4:00 PM [facility] Pharmacy Pharmacy, [place] [address] [place] [address] Clinic, Anemia [address] [place] [address] Iron deficiency anemia, unspecified iron deficiency anemia [...] LFTs 08/22/2023 Overview: Ask A Doc to [facility], requesting referral be placed. Iron [...] money to get more. Never true 06/08/2023 Felt Depression Scale Answer Date Recorded [place] Depression Scale Total 2 07/27/2023 The thought [...] of this encounter Progress Notes * Nova Wharton, [facility] - 09/04/2023 9:29 AM EST Patient referred by Love Queen PA-C for evaluation of anemia by the Anemia Clinic. Called patient to introduce role/clinic and to review labs from 07/27. Hgb: 10.4 g/dL TSAT: 20 % Ferritin: 14 ng/mL B12: 278 pg/mL FA: >20.0 ng/mL GA: [id number] Estimated Date of Delivery: 10/20/23 Hgb is below target range for the third trimester. Iron studies within target range. B12 level within target range. FA level within target range. Per chart review, patient is taking B12 1000mcg daily and appears to be tolerating it well. Patient qualifies for IV iron repletion. Patient reports feeling pretty tired. Plan: Venofer 300 mg IV weekly x 3 doses at [facility]. Orders placed and routed to appropriate parties. Patient agreeable to intervention. Follow-up labs (CBCD, ferritin, iron screen, retic panel, B12, and FA) to be scheduled 4-6 weeks after iron repletion completed if appropriate prior to delivery. Anemia Clinic will continue to follow. Thank you for allowing us to participate in the care of thispatient. Thanks, Nova Wharton [facility] Clinical Pharmacist [facility] (P: [phone]) documented in this encounter Plan of Treatment Upcoming Encounters Date Type Department Care Team (Late st Contact Info) Description 09/04/2023 9:50 AM EST Laboratory Laboratory, [facility] 132 [facility] [place] [phone] [facility] 132 [facility] [place] [address] Arrived 09/07/2023 7:45 AM EST Office Visit Manager Quality Systems OB Maternal Medicine [facility] Juan Diego Gonzales [address] [place] [address] [address] [place] [address] Mona Quintanilla, DO [address] [place] [address] 09/07/2023 7:45 AM EST Imaging Maternal Medicine [facility] Juan Diego Gonzales [address] [place] [address] Dr [address] [facility] [place] [address] 09/11/2023 10:00 AM EST Pharmacy Pharmacy, [place] [address] [place] [address] Clinic, Anemia [address] [place] [address] 09/12/2023 2:15 PM EST Office Visit Gynecology/Obstetrics [facility] 132 [facility] [place] [address] Backer, Zuleyma Dailey, ACUTE CARE SURGEON [address] [place] [address] Bill Non Stress Tests [facility] [address] [place] [address] 09/18/2023 8:30 AM EST Office Visit Gynecology/Obstetrics [facility] [address] [place] [address] Backer, Zuleyma Dailey, ACUTE CARE SURGEON [address] [place] [address] 09/25/2023 8:00 AM EST Office Visit Gynecology/Obstetrics [facility] [address] [place] [address] Amy Bautista CRNP [address] [place] [address] 10/02/2023 8:00 AM EST Office Visit Gynecology/Obstetrics [facility] [address] [place] [address] Amy Bautista CRNP [address] [place] [address] 10/09/2023 8:00 AM EST Office Visit Gynecology/Obstetrics [facility] [address] [place] [address] Amy aButista CRNP [address] [place] [address] 10/16/2023 8:00 AM EST Office Visit Gynecology/Obstetrics [facility] [address] [place] [address] Amy Bautista ACUTE CARE SURGEON [address] [place] [address] 10/23/2023 10:00 AM EST Office Visit Gynecology/Obstetrics [facility] [address] [place] [address] Amy Bautista CRNP [address] [place] [address] 03/14/2024 7:20 AM EDT Office Visit Family Practice [facility] Jaye Kuo [address] [place] [address] Nati Darling DO [address] [place] [address] Health Maintenance Due Date Last Done Comments [...] Primary documented in this encounter Care Teams Silica Spray Mixer Relationship Specialty Start Date End Date Nati Darling DO [address] [place] [address] PCP - General Family Medicine 6/27/23 documented as of this encounter
--- OUTSIDE RECORDS SUMMARY | 2023-10-08 07:53 | External Medical Summary | Summary of Care ---
Author Name Unknown Organization [facility] Address [address] [place] [address] Phone [phone] Care Team Providers Care Retail Warehouse Associate Name Role Phone Nati Darling DO Primary Care Provider Reason for Visit * Reason Comments Consultation Elevated liver funct ion tests Encounter Details Date Type Department Care Team (Late st Contact Info) Description 09/04/2023 2:45 PM EST Telemedicine Cyber Security Analyst Obstetrics Maternal Medicine, [place] [address] [place] [address] Ivy Patel CRNP [address] [place] [address] Cholestasis during in third trimester*; Supervision of high risk in third trimester; with 33 completed weeks gestation Allergies No known active allergiesdocumented as of [...] LFTs 08/22/2023 Overview: Ask A Doc to [facility], requesting referral be placed. Hepatic Panel [...] money to get more. Never true 06/08/2023 [place] Depression Scale Answer Date Recorded [place] Depression Scale Total 2 07/27/2023 The thought [...] as of this encounter Progress Notes * Ivy Patel CRNP - 09/04/2023 3:05 PM EST MATERNAL MEDICINE CONSULT Iraida Garcia Consult date: 11/05/22 REFERRING PROVIDER: LASHAWN Little Patient location: HOME. I was in a hospital or clinic location. After connecting through Tag[employer],patient was verified with two unique identifiers. Patient (or authorized legal sales utility representative) was then informed that this was a Telemedicine visit and being conducted confidentially over secure lines. Methods to assure confidentiality were taken. Patient acknowledged consent and understanding of pr ivacy and security of the Telemedicine visit. The patient agreed to participate. Iraida Garcia is a 22 year old with intrauterine at 33w3d (Estimated Date of Delivery: 10/20/23 by exact LMP) who presents today for an MFM consult due to cholestasis during . HPI/CURRENT : pre- BMI=overweight (83.9 kg (185 lb); 5' 9"); FOB Trevor; complicated by above. Genetic testing: Low Risk Cell Free DNA OB [facility] Khan Problems (from 03/13/23 to present) Problem Noted Resolved Cholestasis during in third trimester 09/04/2023 by Ivy Patel CRNP No Overview Addendum 09/04/2023 3:04 PM by Ivy Patel CRNP Cholestasis in thrid trimester, diagnosed at 31w [...] 13.8 H umol/L < OR = 6.8 I have reviewed this patient's previous OB ultrasound reports, pertinent labwork and testing provided by her referring OB provider. Current Outpatient Medications Medication Sig Dispense Refill 19 29-1 MG Oral Tablet Chewable Take by mouth. Ursodiol 300 MG Oral Capsule (Actigall) Take 1 Capsule by mouth in the morning and 1 Capsule beforebedtime. 60 Capsule 2 Vitamin B-12 1000 MCG Oral Tablet (Cyanocobalamin) Take 1 Tablet by mouth in the morning. 30 Tablet5 No current facility-administered medications for this visit. Review of patient's allergies indicates: No Known Allergies OB History Para Term AB Living 1 0 0 0 0 0 SAB IAB Ectopic Multiple Live Births 0 0 0 0 0 # Outcome Date GA Lbr Rishi/2nd Weight Sex Delivery Anes PTL Lv 1 Current Obstetric Comments 2023 FOB #1: Trevor Garcia, age 22, healthy but does have Crohn's, no other children Past Medical History: Diagnosis Date Cholestasis during in third trimester 09/03/2023 Bile acids 13.8 at 32w. No past surgical history on file. Family History Problem Relation Age of Onset Thyroid Disorder Sister Blood Disorder Sister von willebrand Heart disease Grandmother (Maternal) Heart Disorder Grandfather (Maternal) Thyroid Disorder Grandfather (Maternal) Social History Tobacco Use Smoking status: Never Smokeless tobacco: Never Vaping Use Vaping Use: Never used Substance Use Topics Alcohol use: Not Currently Drug use: Never REVIEW OF SYSTEMS: headaches: no nausea/vomiting: reports occas n/v reports movement: yes abdominal pain/tenderness/cramping/contractions: no vaginal bleeding: no vaginal leaking of fluid: no all other systems negative PHYSICAL EXAM: LMP 01/13/2023 (Exact Date) General: Well appearing Psych: Alert to time, place, and person and Pleasant DISCUSSION/RECOMMENDATIONS: Problem List Items Addressed This Visit OB lOegario Khan Cholestasis during in third trimester - Primary CONSIDERATIONS: Explained to patient that intrahepatic cholestasis [...] based on symptoms and lab abnormalities. Lab diagnosisfor ICP is primarily made through assessment of bile acids after 24 weeks gestation. Bile acids canbe measured regardless of fasting status. Diagnosis should [...] rechecking LFT's and hepatitis panel after 3 monthspostpartum if suspicion of underlying liver pathology. Recommend [...] are routinely recommended given maternal anxiety regarding thisdiagnosis. It is reasonable to start NSTs at [...] after 36 weeks after a course of antenatalsteroids. B. Moderate range bile acids (40-100) would be delivered on or soon after 37 weeks. Consider earlier delivery if i. Excruciating or unremitting maternal pruritus. ii. Jaundice. iii. History of stillbirth from ICP in previous with ICP in current . C. Mild range (less than 40) plan for delivery on or soon after 38 weeks. Follow up ultrasound with Maternal Medicine is scheduled on 09/07/[address] Quintanilla for anatomy scan secondary to cholestasis during . Patient is aware of upcoming MFM appointment. Total time spent face to face in this visit was 30 minutes of which more than 50% was spent discussing and counseling the patient/caregiver(s) regarding cholestasis during . Total time spenton this date of service including non face to face was 40 minutes in preparation, delivery, and documentation of care provided to Iraida Garcia, excluding time spent in performance of separately billable services. Details outlined above in impression and plan. LASHAWN Flannery 09/04/2023 3:09 PM documented in this encounter Miscellaneous Notes * Assessment & Plan Note - Ivy Patel CRNP - 09/04/2023 3:03 PM EST Associated Problem(s): Cholestasis during in third trimester CONSIDERATIONS: Explained to patient that intrahepatic cholestasis [...] based on symptoms and lab abnormalities. Lab diagnosisfor ICP is primarily made through assessment of bile acids after 24 weeks gestation. Bile acids canbe measured regardless of fasting status. Diagnosis should [...] rechecking LFT's and hepatitis panel after 3 monthspostpartum if suspicion of underlying liver pathology. Recommend [...] are routinely recommended given maternal anxiety regarding thisdiagnosis. It is reasonable to start NSTs at [...] after 36 weeks after a course of antenatalsteroids. B. Moderate range bile acids (40-100) would be delivered on or soon after 37 weeks. Consider earlier delivery if i. Excruciating or unremitting maternal pruritus. ii. Jaundice. iii. History of stillbirth from ICP in previous with ICP in current . C. Mild range (less than 40) plan for delivery on or soon after 38 weeks. documented in this encounter Plan of Treatment Upcoming Encounters Date Type Department Care Team (Late st Contact Info) Description 09/04/2023 4:00 PM EST Pharmacy Pharmacy, [place] [address] [place] [address] Clinic, Anemia [address] [place] [address] Iron deficiency anemia, unspecified iron deficiency anemia type* 09/07/2023 7:45 AM EST Office Visit Cyber Security Analyst OB Maternal Medicine [facility] [address] [place] [address] Dr [address] [place] [address] Mona Quintanilla DO [address] [place] [address] 09/07/2023 7:45 AM EST Imaging Maternal Medicine [facility] Juan [place] Gonzales [address] [place] [address] Dr [address] [place] [address] 09/11/2023 10:00 AM EST Pharmacy Pharmacy, [place] [address] [place] [address] Clinic, Anemia [address] [place] [address] 09/12/2023 2:15 PM EST Office Visit Gynecology/Obstetric s [facility] [address] [address] Zuleyma Beltran CRNP [address] [place] [address] Khan, Non Stress Tests [facility] [address] [place] [address] 09/18/2023 8:30 AM EST Office Visit Gynecology/Obstetric s [facility] [address] [place] [address] Zuleyma Beltran CRNP [address] [place] [address] 09/25/2023 8:00 AM EST Office Visit Gynecology/Obstetric s [facility] [address] [place] [address] Amy Bautista CRNP [address] [place] [address] 10/02/2023 8:00 AM EST Office Visit Gynecology/Obstetric s [facility] [address] [place] [address] Amy Bautista CRNP [address] [place] [address] 10/09/2023 8:00 AM EST Office Visit Gynecology/Obstetric s [facility] [address] [place] [address] Amy Bautista CRNP [address] [place] [address] 10/16/2023 8:00 AM EST Office Visit Gynecology/Obstetric s [facility] [address] [place] [address] Amy Bautista CRNP [address] [place] [address] 10/23/2023 10:00 AM EST Office Visit Gynecology/Obstetric s [facility] [address] [place] [address] Amy Bautista CRNP [address] [place] [address] 03/14/2024 7:20 AM EDT Office Visit Family Practice [facility] [place] [address] [place] [address] Nati Darling DO [address] [facility] [place] [address] Health Maintenance Due Date Last Done Comments [...] anemia, unspecified iron deficiency anemia type- Primary Cholestasis during in third trimester- Primary Supervision of high risk in third trimester Unspecified high-risk with 33 completed weeks gestation documented in this encounter Care Teams Retail Warehouse Associate Relationship Specialty Start Date End Date Nati Darling DO [address] [facility] [place] [address] PCP - General Family Medicine 03/13/23 documented as of this encounter
--- OUTSIDE RECORDS SUMMARY | 2023-10-08 07:54 | External Medical Summary | Summary of Care ---
Author Name Unknown Organization [facility] Address [address] [place] [address] Phone [phone] Care Team Providers Care Line Erector Name Role Phone Nati Darling DO Primary Care Provider Reason for Referral * (Within 10 days (routine)) Specialty Diagnoses / Procedures Referred By Contprabhu t Referred To Contact Love Queen PA-C [address] [place] [address] Referral ID Status Reason Start Date Expiration Date Visits Re quested Visits Authorized Question Answer Referral Priority Within 10 days (routine) Where should this appointment be scheduled? [facility] Encounter Details Date Type Department Care Team (Late st Contact Info) Description 08/02/2023 Telephone OR [facility], Operating Room [facility] [address] [place] [phone] Love Queen PA-C [address] [place] [address] Allergies No known active allergiesdocumented as of this encounter (statuses as of 08/06/2023) Medications Medication Sig Dispensed Refills Start Date End Date Status 19 29-1 MG Oral Tablet Chewable Take by mouth. 0 Activ e documented as of this encounter (statuses as of 08/06/2023) Active Problems Problem Noted Date Diagnosed Date Rubella non-immune status, antepartum 03/19/2023 Rh negative status during 03/19/2023 Supervision of normal first 03/15/2023 Estimated Date of Delivery Comme nts Yes 10/20/2023 Based on last me nstrual period of 01/13/2023 (Exact Date) documented as of this encounter (statuses as of 08/06/2023) Immunizations Name Administration Dates Next Due DTaP [...] Pneumococcal Conjugate Vacc, 13 Valent (Prevnar) 07/17/2000,01/03/2000 SEASONAL INFLUENZA, PF, 6 M & Above, IM , (FLULAVAL or FLUZONE) 06/15/2023 TDAP (age 10 and older)(Boostrix) 07/27/2023 [...] money to get more. Never true 06/08/2023 [place] Depression Scale Answer Date Recorded [place] Depression Scale Total 2 07/27/2023 The [...] encounter Miscellaneous Notes * Telephone Encounter - Velvet Nash RN - 08/06/2023 1:55 PM EST Please see patient message. Was a referral placed for patient ? I didn't see one under referrals. * Telephone Encounter - Love Queen PA-C - 08/02/2023 10:44 AM EST Referral placed, they should be reach out to her to schedule. Please let her know hematology got back to me and they it could be due to infection or or inflammation and that we repeat the blood work in future. Likely in about 4 weeks. Can you let her know? Love Queen PA-C * Telephone Encounter - Velvet Nash RN - 08/02/2023 10:00 AM EST Patient called back and made aware. Patient verbalized understanding. Patient agreeable to IV iron.Please place referral. * Telephone Encounter - Malgorzata Hyde LPN - 08/02/2023 9:08 AM EST TC to patient, no VM available. * Telephone Encounter - Love Queen PA-C - 08/02/2023 8:54 AM EST Patient labs did show she is anemic. Her hemoglobin was 10.4. I would recommend referral for IV iron at this time. Please let me know if she is agreeable and I will place referral. Her blood work also showed abnormal levels in her white blood count. This is not of immediate concern, I did reach out to hematology to ask for recommendations in follow up. documented in this encounter Plan of Treatment Upcoming Encounters Date Type Department Care Team (Late st Contact Info) Description 08/08/2023 10:30 AM EST Office Visit [facility] [address] [place] [address] Amy Bautista CRNP [address] [place] [address] 08/21/2023 8:00 AM EST [facility] [address] [place] [address] Amy Bautista CRNP [address] [place] [address] 03/14/2024 7:20 AM EDT Office Visit [facility] [address] [facility] [place] [address] Nati Darling, [address] [facility] [place] [address] Scheduled Referrals Name Type Priority Associated Diagnoses Orde r Schedule BLOOD MANAGEMENT REFERRAL Referral Within 10 days (routine) Iron deficiency anemia, unspecified iron deficiency anemia type Ordered: 08/02/2023 Health Maintenance Due Date Last Done Comments [...] Primary documented in this encounter Care Teams Line Erector Relationship Specialty Start Date End Date Nati Darling DO [address] [place] [address] PCP - General Family Medicine 03/13/23 documented as of this encounter
--- OUTSIDE RECORDS SUMMARY | 2023-10-08 07:54 | External Medical Summary ---
Author Name Unknown Address Unknown Organization [facility] [address] [place] [address] Laboratory Report Ordering Provider Test Date Status AZEEM VASQUEZ 08/21/2023 08:43:32 Final Observation Date Value Abnormality Reference (Units ) Status Albumin 08/21/2023 08:43:32 3.5 Below low normal 3.8-5.0 (g/dL) Final AST (Aspartate aminotransferase) 08/21/2023 08:43:32 115 Above high normal 10-35 (U/L) Final Alk Phos 08/21/2023 08:43:32 184 Above high normal 35-130 (U/L) Final ALT (Alanine aminotransferase) 08/21/2023 08:43:32 239 Above high normal 10-35 (U/L) Final Bilirubin, Total 08/21/2023 08:43:32 0.4 <=1.2 (mg/dL) Final Bilirubin, Direct 08/21/2023 08:43:32 <0.2 0.0-0.3 (mg/dL) Final Protein 08/21/2023 08:43:32 6.3 6.0-8.3 (g/dL) Final Performing Location [facility] [address] [place] [address]
--- OUTSIDE RECORDS SUMMARY | 2023-10-08 07:54 | External Medical Summary | Summary of Care ---
Author Name Unknown Organization [facility] Address [address] [place] [address] Phone [phone] Care Team Providers Care Top Steep Tender Name Role Phone Nati Darling DO Primary Care Provider Reason for Visit * Reason Onset Date Comments Anemia Follow-Up 08/28/2023 Encounter Details Date Type Department Care Team (Late st Contact Info) Description 08/28/2023 4:00 PM [facility] Pharmacy Pharmacy, [place] [address] [place] [address] Clinic, Anemia [address] [place] [address] Iron deficiency anemia, unspecified iron deficiency anemia type* Allergies No known active allergiesdocumented as of this encounter (statuses as of 08/28/2023) Medications Medication Sig Dispensed Refills Start Date End Date Status 19 29-1 MG Oral Tablet Chewable Take by mouth. 0 Active Vitamin B-12 1000 MCG Oral Tablet (Cyanocobalamin) Take 1 Tablet by mouth in the morning. 30 Tablet 5 08/08/2023 Active documented as of this encounter (statuses as of 08/28/2023) Active Problems Problem Noted Date Diagnosed Date Elevated LFTs 08/22/2023 Overview: Ask A Doc to [facility], requesting referral be placed. Iron deficiency anemia 08/21/2023 Rubella non-immune status, antepartum 03/19/2023 Rh negative status during 03/19/2023 Supervision of normal first 03/15/2023 Estimated Date of Delivery Comme nts Yes 10/20/2023 Based on last me nstrual period of 01/13/2023 (Exact Date) documented as of this encounter (statuses as of 08/28/2023) Immunizations Name Administration Dates Next Due DTaP [...] money to get more. Never true 06/08/2023 [place] Depression Scale Answer Date Recorded [place] Depression Scale Total 2 07/27/2023 The thought [...] this encounter Progress Notes * Nova Wharton [facility] - 08/28/2023 7:45 AM EST Patient referred by Love Queen PA-C for evaluation of anemia by the Anemia Clinic. Called patient to introduce role/clinic and to review labs from 07/27. Left message on voicemail. Hgb: 10.4 g/dL TSAT: 20 % Ferritin: 14 ng/mL B12: 278 pg/mL FA: >20.0 ng/mL GA: 32w3d Estimated Date of Delivery: 10/20/23 Hgb is below target range for the third trimester. Iron studies within target range. B12 level within target range. FA level within target range. Per chart review, patient is taking B12 1000mcg daily and appears to be tolerating it well. Patient qualifies for IV iron repletion. Tentative Plan: Venofer 300 mg IV weekly x 3 doses at [facility]. Orders need to be placed and routed to appropriate parties if patient agreeable to intervention. Follow-up labs (CBCD, ferritin, iron screen, retic panel, B12, and FA) to be scheduled 4-6 weeks after iron repletion completed if appropriate prior to delivery. Anemia Clinic will continue to follow. Thank you for allowing us to participate in the care of thispatient. Thanks, Nova Wharton, [facility] Clinical Pharmacist [facility] Anemia [facility] (P: [phone]) documented in this encounter Plan of Treatment Upcoming Encounters Date Type Department Care Team (Late st Contact Info) Description 09/04/2023 8:30 AM EST Office Visit Gynecology/Obstetrics [facility] [address] [place] [address] Zuleyma Beltran CRNP [address] [place] [address] 09/04/2023 4:00 PM EST Pharmacy Pharmacy, [place] [address] [place] [address] Clinic, Anemia [address] [place] [address] 09/07/2023 7:45 AM EST Office Visit Director Hardware OB Maternal Medicine [facility] [address] [place] [address] Dr [address] [place] [address] Mona Quintanilla, DO [address] [place] [address] 09/07/2023 7:45 AM EST Imaging Maternal Medicine [facility] [place] [address] [place] [address] Dr [address] [place] [address] 09/18/2023 8:30 AM EST Office Visit Gynecology/Obstetrics [facility] [address] [place] [address] Zuleyma Beltran CRNP [address] [place] [address] 09/25/2023 8:00 AM EST Office Visit Gynecology/Obstetrics [facility] [address] [place] [address] Amy Bautista CRNP [address] [place] [address] 10/02/2023 8:00 AM EST Office Visit Gynecology/Obstetrics [facility] [address] [place] [address] Amy Bautista CRNP [address] [place] [address] 10/09/2023 8:00 AM EST Office Visit Gynecology/Obstetrics [facility] [address] [place] [address] Amy Bautista CRNP [address] [place] [address] 10/16/2023 8:00 AM EST Office Visit Gynecology/Obstetrics [facility] [address] [place], [place] [address] Amy Bautista CRNP [address] [place] [address] 10/23/2023 10:00 AM EST Office Visit Gynecology/Obstetrics [facility] [address] [place], [place] [address] Amy Bautista CRNP [address] [place] [address] 03/14/2024 7:20 AM EDT Office Visit Family Practice [facility] [place] [address] [facility] [place], [place] [address] Nati Darling, [address] [place] [address] Health Maintenance Due Date Last Done Comments [...] Primary documented in this encounter Care Teams Top Steep Tender Relationship Specialty Start Date End Date Nati Darling DO [address] [place] [address] PCP - General Family Medicine 03/13/23 documented as of this encounter
--- OUTSIDE RECORDS SUMMARY | 2023-10-08 07:54 | External Medical Summary ---
Author Name Unknown Address Unknown Organization [facility] [address] [place] [address] Laboratory Report Ordering Provider Test Date Status AZEEM VASQUEZ 08/21/2023 08:43:32 Final Observation Date Value Abnormality Reference (Units ) Status WBC, Total 08/21/2023 08:43:32 9.40 4.00-10.8 0 (K/uL) Final RBC 08/21/2023 08:43:32 3.47 3.85-5.15 (M/uL) Final Hemoglobin 08/21/2023 08:43:32 10.2 Below low normal 12 .0-15.3 (g/dL) Final Anemia reflex testing trigge rs on a HGB < 12.0 for Females and HGB < 13.0 for Males in accordance with the WHO Anemia Guidelines
Anemia reflex testing triggers on a HGB < 12.0 for Females and HGB < 13.0 for Males in accordance with the WHO Anemia Guidelines HCT 08/21/2023 08:43:32 31.4 Below low normal 36. 0-45.2 (%) Final MCV 08/21/2023 08:43:32 90.5 81.5-97.5 (fL) Final MCH 08/21/2023 08:43:32 29.4 27.0-34.0 (pg) Final MCHC 08/21/2023 08:43:32 32.5 32.0-36.0 (g/dL) Final RDW 08/21/2023 08:43:32 13.5 11.5-15.5 (%) Final Platelets 08/21/2023 08:43:32 272 140-400 (K /uL) Final MPV 08/21/2023 08:43:32 10.6 6.6-11.1 ( fL) Final Performing Location [facility] [place] [address] [place] [address]
--- OUTSIDE RECORDS SUMMARY | 2023-10-08 07:54 | External Medical Summary | Summary of Care ---
Author Name Unknown Organization [facility] Address [address] [place] [address] Phone [phone] Care Team Providers Care Plant Custodian Name Role Phone Nati Darling DO Primary Care Provider Reason for Referral * (Within 10 days (routine)) Specialty Diagnoses / Procedures Referred By Contprabhu t Referred To Contact Love Queen PA-C [address] [place] [address] Referral ID Status Reason Start Date Expiration Date Visits Re quested Visits Authorized Question Answer Referral Priority Within 10 days (routine) Where should this appointment be scheduled? Armando Encounter Details Date Type Department Care Team (Late st Contact Info) Description 08/02/2023 Telephone OR [facility], Operating Room [facility] [address] [place] [phone] Love Queen PA-C [address] [place] [address] Allergies No known active allergiesdocumented as of [...] money to get more. Never true 06/08/2023 [place] Depression Scale Answer Date Recorded [place] Depression Scale Total 2 07/27/2023 The thought [...] encounter Miscellaneous Notes * Telephone Encounter - Love Queen PA-C - 08/06/2023 2:00 PM EST Blood management referral for IV iron was placed. Nothing further needed at this time. They should reach out to schedule. * Telephone Encounter - Velvet Nash RN [...] 08/08/2023 10:30 AM EST Office Visit Gynecology/Obstetrics [facility] [address] [place] [address] Amy Bautista CRNP [address] [place] [address] 08/21/2023 8:00 AM EST Office Visit Gynecology/Obstetrics [facility] [address] [place] [address] Amy Bautista CRNP [address] [place] [address] 03/14/2024 7:20 AM EDT Office Visit Family [facility] [address] [place] [address] Nati Darling DO [address] [place] [address] Scheduled Referrals Name Type Priority Associated Diagnoses [...] Primary documented in this encounter Care Teams Plant Custodian Relationship Specialty Start Date End Date Nati Darling DO [address] [place] [address] PCP - General Family Medicine 03/13/23 documented as of this encounter
--- OUTSIDE RECORDS SUMMARY | 2023-10-08 07:54 | External Medical Summary ---
Author Name Unknown Address Unknown Organization K0G[facility] [address] [place] [address] Laboratory Report Ordering Provider Test Date Status AZEEM VASQUEZ 08/21/2023 08:43:32 Final Observation Date Value Abnormality Reference (Units ) Status SYNC LEUKOCYTES IN BLOOD BY AUTOMATED COUNT 08/21/2023 08:43:32 9.40 4.00-10.80 (K/uL) Final Neutrophils/100 leukocytes in Blood by Manual count 08/21/2023 08:43:32 65.0 40.0-75.0 (%) Final Lymphocytes/100 leukocytes in Blood by Manual count 08/21/2023 08:43:32 19.0 18.0-42.0 (%) Final Monocytes/100 leukocytes in Blood by Manual count 08/21/2023 08:43:32 9.0 1.0-11.0 (%) Final Eosinophils/100 leukocytes in Blood by Manual count 08/21/2023 08:43:32 2.0 0.0-6.0 (%) Final Metamyelocytes/100 leukocytes in Blood by Manual count 08/21/2023 08:43:32 2.0 Above high normal <=0.0 (%) Final Myelocytes/100 leukocytes in Blood by Manual count 08/21/2023 08:43:32 3.0 Above high normal <=0.0 (%) Final Neutrophils [#/volume] in Blood by Manual count 08/21/2023 08:43:32 6.11 1.80-7.70 (K/uL) Final Lymphocytes [#/volume] in Blood by Manual count 08/21/2023 08:43:32 1.79 1.00-4.80 (K/uL) Final Monocytes [#/volume] in Blood by Manual count 08/21/2023 08:43:32 0.85 0.00-1.10 (K/uL) Final Eosinophils [#/volume] in Blood by Manual count 08/21/2023 08:43:32 0.19 0.00-0.70 (K/uL) Final Metamyelocytes [#/volume] in Blood by Manual count 08/21/2023 08:43:32 0.19 Above high normal <=0.00 (K/uL) Final Myelocytes [#/volume] in Blood by Manual count 08/21/2023 08:43:32 0.28 Above high normal <=0.00 (K/uL) Final Nucleated erythrocytes/100 leukocytes [Ratio] in Blood by Automated count 08/21/2023 08:43:32 Final Performing Location [facility] [address] [facility] [address]
--- OUTSIDE RECORDS SUMMARY | 2023-10-08 07:54 | External Medical Summary | Summary of Care ---
Author Name Unknown Organization [facility] Address [address] [place] [address] Phone [phone] Care Team Providers Care Windows Software Developer Name Role Phone Nati Darling DO Primary Care Provider Reason for Visit * Reason Onset Date Comments Anemia Follow-Up 08/21/2023 * Evaluate & Treat - Unlimited Visits (Within 10 days (routine)) - Pending Review Specialty Diagnoses / Procedures Referred By Dash singh Referred To Contact Pharmacist / Pharmacy Diagnoses VINOD (iron deficiency anemia) Love Queen PA-C [address] [place] [address] Referral ID Status Reason Start Date Expiration Date Visits Requested Visits Authorized [id number] Pending Review Specialty Services Required [phone] Encounter Details Date Type Department Care Team (Late st Contact Info) Description 08/21/2023 4:00 PM [facility] Pharmacy Pharmacy, [place] [address] [place] [address] Clinic, Anemia [address] [place] [address] Iron deficiency anemia, unspecified iron deficiency anemia type* Allergies No known active allergiesdocumented as of this encounter (statuses as of 08/21/2023) Medications Medication Sig Dispensed Refills Start Date End Date Status 19 29-1 MG Oral Tablet Chewable Take by mouth. 0 Active Vitamin B-12 1000 MCG Oral Tablet (Cyanocobalamin) Take 1 Tablet by mouth in the morning. 30 Tablet 5 08/08/2023 Active documented as of this encounter (statuses as of 08/21/2023) Active Problems Problem Noted Date Diagnosed Date Iron deficiency anemia 08/21/2023 Rubella non-immune status, antepartum 03/19/2023 Rh negative status during 03/19/2023 Supervision of normal first 03/15/2023 Estimated Date of Delivery Comme nts Yes 10/20/2023 Based on last me nstrual period of 01/13/2023 (Exact Date) documented as of this encounter (statuses as of 08/21/2023) Immunizations Name Administration Dates Next Due DTaP [...] money to get more. Never true 06/08/2023 [place] Depression Scale Answer Date Recorded [place] Depression Scale Total 2 07/27/2023 The thought [...] this encounter Progress Notes * Nova Wharton, [facility] - 08/21/2023 8:41 AM EST Patient referred by Love Queen PA-C for evaluation of anemia by the Anemia Clinic. Called patient to introduce role/clinic and to review labs from 07/27. Left message on voicemail. Hgb: 10.4 g/dL TSAT: 20 % Ferritin: 14 ng/mL B12: 278 pg/mL FA: >20.0 ng/mL GA: 31w3d Estimated Date of Delivery: 10/20/23 Hgb is below target range for the third trimester. Iron studies within target range. B12 level within target range. FA level within target range. Per chart review, patient is taking B12 1000mcg daily and appears to be tolerating it well. Patient qualifies for IV iron repletion. Tentative Plan: Venofer 300 mg IV weekly x 3 doses at [facility]. Orders need to be placed and routed to appropriate parties if patient agreeable to intervention. Follow-up labs (CBCD, ferritin, iron screen, retic panel, B12, and FA) to be scheduled 4-6 weeks after iron repletion completed if appropriate prior to delivery. Anemia Clinic will continue to follow. Thank you for allowing us to participate in the care of thispatient. Thanks, Nova Wharton [facility] Clinical Pharmacist [facility] (P: [phone]) 08/21/2023 8:41 AM documented in this encounter Plan of Treatment Upcoming Encounters Date Type Department Care Team (Late st Contact Info) Description 08/21/2023 9:10 AM EST [facility] [address] [address] Adarsh Khan [address] [place] [address] Antepartum anemia complicating ; Pruritus 08/28/2023 4:00 PM EST Pharmacy Pharmacy, [place] [address] [place] [address] Clinic, Anemia [address] [place] [address] 09/04/2023 8:30 AM EST Office Visit Gynecology/Obstetric s [facility] [address] [address] Zuleyma Beltran CRNP [address] [place] [address] 09/18/2023 8:30 AM EST Office Visit Gynecology/Obstetric [facility] [address] [address] Zuleyma Beltran CRNP [address] [address] 09/25/2023 8:00 AM EST Office Visit Gynecology/Obstetric s [facility] [address] [place] [address] Amy Bautitsa CRNP [address] [place] [address] 10/02/2023 8:00 AM EST Office Visit Gynecology/Obstetric s [facility] [address] [place] [address] Amy Bautista CRNP [address] [place] [address] 10/09/2023 8:00 AM EST Office Visit Gynecology/Obstetric s [facility] [address] [place] [address] Amy Bautista CRNP [address] [place] [address] 10/16/2023 8:00 AM EST Office Visit Gynecology/Obstetric s [facility] [address] [place] [address] Amy Bautista CRNP [address] [place] [address] 10/23/2023 10:00 AM EST Office Visit Gynecology/Obstetric s [facility] [address] [place], [place] [address] Amy Bautista CRNP [address] [place] [address] 03/14/2024 7:20 AM EDT Office Visit Family Practice [facility] [address] [facility] [place] [address] Nati Darling DO [address] [place] [address] Scheduled Referrals Name Type Priority Associated Diagnoses Orde r Schedule PHARMACIST MEDS THERAPY MGMT REFERRAL OP Referral Within 10 days (routine) VINOD (iron deficiency anemia) Ordered: 08/08/2023 Health Maintenance Due Date Last Done Comments [...] anemia, unspecified iron deficiency anemia type- Primary Antepartum anemia complicating Anemia, antepartum Pruritus Unspecified pruritic disorder documented in this encounter Care Teams Windows Software Developer Relationship Specialty Start Date End Date Nati Darling DO [address] [place] [address] PCP - General Family Medicine 03/13/23 documented as of this encounter
--- OUTSIDE RECORDS SUMMARY | 2023-10-08 07:54 | External Medical Summary | Summary of Care ---
Author Name Unknown Organization [facility] Address [address] [place] [address] Phone [phone] Care Team Providers Care Va Underwriter Name Role Phone Nati Darling DO Primary Care Provider Reason for Visit * Reason Comments Return Visit Encounter Details Date Type Department Care Team (Late st Contact Info) Description 08/21/2023 8:00 AM EST Office Visit Gynecology/Obstetric s [facility] [address] [place] [address] Amy Bautista CRNP [address] [place] [facility] [place] [address] Encounter for supervision of normal first in third trimester*; Rubella non-immune status, antepartum; Rh negative, antepartum; Pruritus; Antepartum anemia complicating Allergies No known active allergiesdocumented as of [...] money to get more. Never true 06/08/2023 [place] Depression Scale Answer Date Recorded [place] Depression Scale Total 2 07/27/2023 The thought [...] Sign Reading Time Taken Comments Blood Pressure 118/68 08/21/2023 7:56 AM EST Pulse - - Temperature - - Respiratory Rate - - Oxygen Saturation - - Inhaled Oxygen Concentration - - Weight 94.3 kg (208 lb) 08/21/2023 7:56 AM EST Height 175.3 cm (5' 9") 08/21/2023 7:56 AM EST Body Mass Index 30.72 08/21/2023 7:56 AM EST documented in this encounter Progress Notes * Amy Bautista CRNP - 08/21/2023 8:11 AM EST 31w3d Left sided rib pain. Had itching of hands and feet for a day, about a week ago. No itching since. Hep function panel, bile acids, CBC today. No other concerns. Baby is active. No contractions, bleeding, or LOF. LASHAWN Lassiter * Ashanti Fisher LPN - 08/21/2023 7:56 AM EST 31w3d Pain left side rib cage going on for a week Hands and feet itchy a week ago did go away documented in this encounter Plan of Treatment Upcoming Encounters Date Type Department Care Team (Late st Contact Info) Description 08/21/2023 4:00 PM EST Pharmacy Pharmacy, [place] [address] [place] [address] Clinic, Anemia [address] [place] [address] Iron deficiency anemia, unspecified iron deficiency anemia type* 08/28/2023 4:00 PM EST Pharmacy Pharmacy, [place] [address] [place] [address] Clinic, Anemia [address] [place] [address] 09/04/2023 8:30 AM EST Office Visit Gynecology/Obstetric s [facility] [address] [place] [address] Zuleyma Beltran CRNP [address] [place] [address] 09/18/2023 8:30 AM EST Office Visit Gynecology/Obstetric s [facility] [address] [place] [address] Zulemya Beltran CRNP [address] [place] [address] 09/25/2023 8:00 AM EST Office Visit Gynecology/Obstetric s [facility] [address] [place] [address] Amy Bautista CRNP [address] [place] [address] 10/02/2023 8:00 AM EST Office Visit Gynecology/Obstetric s [facility] [address] [place] [address] Amy Bautista CRNP [address] [place] [address] 10/09/2023 8:00 AM EST Office Visit Gynecology/Obstetric s [facility] [address] [place], [place] [address] Amy Bautista CRNP [address] [place] [address] 10/16/2023 8:00 AM EST Office Visit Gynecology/Obstetric s [facility] [address] [place] [address] Amy Bautista CRNP [address] [place] [address] 10/23/2023 10:00 AM EST Office Visit Gynecology/Obstetric s [facility] [address] [place] [address] mAy Bautista CRNP [address] [place] [address] 03/14/2024 7:20 AM EDT Office Visit Family Practice [facility] [address] [facility], [place] [address] Nati Darling DO 200 [facility] [place], [place] [address] Pending Results Name Type Priority Associated Diagnoses Date /Time CBC WITH WBC DIFFERENTIAL AND ANEMIA REFLEX WORKUP Lab Routine Antepartum anemia complicating 08/21/2023 8:43 AM EST BILE ACIDS, FRACTIONATED AND TOTAL Lab Routine Pruritus 08/21/2023 8:43 AM EST Scheduled Orders Name Type Priority Associated Diagnoses Orde r Schedule CBC WITH WBC DIFFERENTIAL AND ANEMIA REFLEX WORKUP Lab Routine Antepartum anemia complicating Expected: 08/21/2023, Expires: 08/21/2024 BILE ACIDS, FRACTIONATED AND TOTAL Lab Routine Pruritus Expected: 08/21/2023 (Approximate), Expires: 08/21/2024 Health Maintenance Due Date Last Done Comments [...] Not on filedocumented as of this encounter Results * (ABNORMAL) HEPATIC FUNCTION PANEL (08/21/2023 8:43 AM EST) Pathologist [facility] Albumin 3.5(L) 3.8 - 5.0 g/dL 08/21/2023 10:00 AM EST LAB[facility]ORY [facility] 57-10 AST 115(H) 10 - 35 U/L 08/21/2023 10:00 AM EST [facility] 57[address] Alkaline Phosphatase 184(H) 35 - 130 U/L 08/21/2023 10:00 AM EST LAB[facility]ORY [facility] 57[address] ALT 239(H) 10 - 35 U/L 08/21/2023 10:00 AM EST [facility] 57[address] Bilirubin, Total 0.4 <=1.2 mg/dL 08/21/2023 10:00 AM EST LAB[facility]ORY [facility] 57[address]10 Bilirubin, Direct <0.2 0.0 - 0.3 mg/dL 08/21/2023 10:00 AM EST LAB[facility]ORY [facility] 57[address] Protein 6.3 6.0 - 8.3 g/dL 08/21/2023 10:00 AM EST [facility] [place] [address] Blood Venous blood specimen / Unknown Venipuncture / Unknown 08/21/2023 8:43 AM EST 08/21/2023 8:43 AM EST Amy Ahumada Josepaulino LASHAWN LAB BLOOD ORDERABLES [facility] [place] [address] [place] [address] documented in this encounter Visit Diagnoses Diagnosis Encounter for supervision of normal first in third trimester- Primary Supervision of normal first Rubella non-immune status, antepartum Other specified complication, antepartum Rh negative, antepartum Rhesus isoimmunization affecting management of mother, antepartum condition Pruritus Unspecified pruritic disorder Antepartum anemia complicating Anemia, antepartum Iron deficiency anemia, unspecified iron deficiency anemia type- Primary documented in this encounter Care Teams Va Underwriter Relationship Specialty Start Date End Date Nati Darling DO [facility] [address] [address] PCP - General Family Medicine 03/13/23 documented as of this encounter
--- OUTSIDE RECORDS SUMMARY | 2023-10-08 07:54 | External Medical Summary | Summary of Care ---
Author Name Unknown Organization [facility] Address [address] [place] [address] Phone [phone] Care Team Providers Care Community Service Officer Coordinator Name Role Phone Nati Darling DO Primary Care Provider Reason for Visit * Reason Comments Outpatient Testing Encounter Details Date Type Department Care Team (Late st Contact Info) Description 08/21/2023 9:10 AM EST Laboratory Laboratory, [facility] [address] [place] [phone] [facility] [address] [place], [place] [id number] Antepartum anemia complicating ; Pruritus Allergies No known active allergiesdocumented as of [...] money to get more. Never true 06/08/2023 [place] Depression Scale Answer Date Recorded [place] Depression Scale Total 2 07/27/2023 The thought [...] Description 08/21/2023 4:00 PM EST Pharmacy Pharmacy, [place] [address] [place] [address] Clinic, Anemia [address] [place] [address] Iron deficiency anemia, unspecified iron deficiency anemia type* 08/28/2023 4:00 PM EST Pharmacy Pharmacy, [place] [address] [place] [address] Clinic, Anemia [address] [place] [address] 09/04/2023 8:30 AM EST Office Visit Gynecology/Obstetric s [facility] [address] [facility] [place] [address] Zuleyma Beltran CRNP [address] [place] [address] 09/18/2023 8:30 AM EST Office Visit Gynecology/Obstetric s [facility] [address] [place] [address] Zuleyma Beltran CRNP [address] [place] [address] 09/25/2023 8:00 AM EST Office Visit Gynecology/Obstetric s [facility] [address] [place] [address] Amy Bautista CRNP [address] [place] [address] 10/02/2023 8:00 AM EST Office Visit Gynecology/Obstetric s [facility] [address] [place] [address] Amy Bautista CRNP [address] [place] [address] 10/09/2023 8:00 AM EST Office Visit Gynecology/Obstetric s [facility] [address] [place] [address] Amy Bautista CRNP [address] [place] [address] 10/16/2023 8:00 AM EST Office Visit Gynecology/Obstetric s [facility] [address] [place] [address] Amy Bautista CRNP [address] [place] [address] 10/23/2023 10:00 AM EST Office Visit Gynecology/Obstetric s [facility] [address] [place] [address] Amy Bautista CRNP [address] [place] [address] 03/14/2024 7:20 AM EDT Office Visit Family Practice [facility] [address] [facility] [place] [address] Nati Darling DO [address] [facility] [place] [address] Pending Results Name Type Priority Associated Diagnoses Date /Time CBC WITH WBC DIFFERENTIAL AND ANEMIA REFLEX WORKUP Lab Routine Antepartum anemia complicating 08/21/2023 8:43 AM EST HEPATIC FUNCTION PANEL Lab Routine Pruritus 08/21/2023 8:43 AM EST BILE ACIDS, FRACTIONATED AND TOTAL Lab Routine Pruritus 08/21/2023 8:43 AM EST ANEMIA CBC Lab Routine Antepartum anemia complicating 08/21/2023 8:43 AM EST DIFFERENTIAL, AUTOMATED Lab Routine Antepartum anemia complicating 08/21/2023 8:43 AM EST ANEMIA REFLEX CHEMISTRY HOLD Lab Routine Antepartum anemia complicating 08/21/2023 8:43 AM EST Health Maintenance Due Date Last [...] disorder documented in this encounter Care Teams Community Service Officer Coordinator Relationship Specialty Start Date End Date Nati Darling DO [address] [place] [address] PCP - General Family Medicine 03/13/23 documented as of this encounter
--- OUTSIDE RECORDS SUMMARY | 2023-10-08 07:54 | External Medical Summary | Summary of Care ---
Author Name Unknown Organization [facility] Address [address] [place] [address] Phone [phone] Care Team Providers Care Physician Practice Market Manager Name Role Phone Nati Darling DO Primary Care Provider Reason for Referral * (Within 10 days (routine)) Specialty Diagnoses / Procedures Referred By Contprabhu t Referred To Contact Love Queen PA-C [address] [place] [address] Referral ID Status Reason Start Date Expiration Date Visits Re quested Visits Authorized Question Answer Referral Priority Within 10 days (routine) Where should this appointment be scheduled? [facility] Encounter Details Date Type Department Care Team (Late st Contact Info) Description 08/02/2023 Telephone OR [facility], Operating Room [facility] [address] [place] [phone] Love Queen PA-C [address] [place] [address] Allergies No known active allergiesdocumented as of [...] money to get more. Never true 06/08/2023 [place] Depression Scale Answer Date Recorded [place] Depression Scale Total 2 07/27/2023 The thought [...] 08/08/2023 10:30 AM EST Office Visit Gynecology/Obstetrics [facility] [address] [place] [address] Amy Bautista CRNP [address] [place] [address] 08/21/2023 8:00 AM EST Office Visit Gynecology/Obstetrics [facility] [address] [place] [address] Amy Bautista CRNP [address] [place] [address] 03/14/2024 7:20 AM EDT Office Visit Family Practice [facility] [address] [place] [address] Nati Darling DO [address] [place] [address] Scheduled Referrals Name Type Priority Associated Diagnoses [...] Primary documented in this encounter Care Teams Physician Practice Market Manager Relationship Specialty Start Date End Date Nati Darling DO [address] [place] [address] PCP - General Family Medicine 03/13/23 documented as of this encounter
--- OUTSIDE RECORDS SUMMARY | 2023-10-08 07:54 | External Medical Summary | Summary of Care ---
Author Name Unknown Organization [facility] Address [address] [place] [address] Phone [phone] Care Team Providers Care Repossession Agent Name Role Phone Nati Darling DO Primary Care Provider Reason for Referral * Evaluate & Treat - Unlimited Visits (Within 3 days (urgent)) - Pending Review Specialty Diagnoses / Procedures Referred By Dash t Referred To Contact Obstetrics/Gynecology / Maternal Medicine Diagnoses Elevated LFTs Amy Bautista CRNP [address] [facility] [place] [address] Referral ID Status Reason Start Date Expiration Date Visits Requested Visits Authorized [id number] Pending Review Specialty Services Required 08/22/[phone] Question Answer Referral Priority Within 3 days (urgent) Has the patient had a viability scan? Yes Date performed 03/15/2023 Location performed Radiology Reason for referral Maternal medical condition Please provide additional details elevated LFTs at 31w. Ask a Doc sent, Dr. Melissa requesting referral be placed Where should this appointment be scheduled? [facility] Comments /Para: LMP: Patient's last menstrual period was 01/13/2023 (exact date). Patient is . DIANE: 10/20/2023, by Last Menstrual Period Pre-Gravid BMI: 27.31 Encounter Details Date Type Department Care Team (Late st Contact Info) Description 08/22/2023 Telephone [facility]necology[facility] [address] [facility] [address] Amy Bautista CRNP [address] [place] [address] Allergies No known active allergiesdocumented as of this encounter (statuses as of 08/22/2023) Medications Medication Sig Dispensed Refills Start Date End Date Status 19 29-1 MG Oral Tablet Chewable Take by mouth. 0 Active Vitamin B-12 1000 MCG Oral Tablet (Cyanocobalamin) Take 1 Tablet by mouth in the morning. 30 Tablet 5 08/08/2023 Active documented as of this encounter (statuses as of 08/22/2023) Active Problems Problem Noted Date Diagnosed Date Elevated LFTs 08/22/2023 Overview: Ask A Doc to [facility], requesting referral be placed. Iron deficiency anemia 08/21/2023 Rubella non-immune status, antepartum 03/19/2023 Rh negative status during 03/19/2023 Supervision of normal first 03/15/2023 Estimated Date of Delivery Comme nts Yes 10/20/2023 Based on last me nstrual period of 01/13/2023 (Exact Date) documented as of this encounter (statuses as of 08/22/2023) Immunizations Name Administration Dates Next Due DTaP [...] money to get more. Never true 06/08/2023 [place] Depression Scale Answer Date Recorded [place] Depression Scale Total 2 07/27/2023 The thought [...] Telephone Encounter - Velvet Nash RN - 08/22/2023 8:52 AM EST Patient called and made aware. She verbalized understanding. * Telephone Encounter - Amy Bautista CRNP - 08/22/2023 8:44 AM EST Please make pt aware that her LFTs are elevated. I spoke with MFM and they want to see her. I am placing a MFM referral, she should hear from them soon. documented in this encounter Plan of Treatment Upcoming Encounters Date Type Department Care Team (Late st Contact Info) Description 08/28/2023 4:00 PM EST Pharmacy Pharmacy, [address] [address] Clinic, [address] [address] 09/04/2023 8:30 AM EST Office Visit Gynecology/Obstetric[facility] [address] [place] [address] BackZuleyma quintana CRNP [address] [place] [address] 09/18/2023 8:30 AM EST Office Visit Gynecology/Obstetrics [facility] [address] [place] [address] BackerZuleyma CRNP [address] [place] [address] 09/25/2023 8:00 AM EST Office Visit [facility]necology[facility] [address] [place] [address] Amy Bautista CRNP [address] [place] [address] 10/02/2023 8:00 AM EST Office Visit [facility]necology[facility] [address] [place] [address] Amy Bautista CRNP [address] [place] [address] 10/09/2023 8:00 AM EST Office Visit Gynecology/Obstetrics [facility] [address] [place] [address] Amy Bautista CRNP [address] [place] [address] 10/16/2023 8:00 AM EST Office Visit Gynecology/Obstetrics [facility] [address] [place] [address] Amy Bauitsta CRNP [address] [place] [address] 10/23/2023 10:00 AM EST Office Visit Gynecology/Obstetrics [facility] [address] [place] [address] Amy Bautista CRNP [address] [place] [address] 03/14/2024 7:20 AM EDT Office Visit Family Practice [facility] [address] [facility] [place], [place] [address] Nati Darling, [address] [facility] [place] [address] Scheduled Orders Name Type Priority Associated Diagnoses Orde r Schedule MFM US MATERNAL 1ST FETUS Medical Imaging Routine Elevated LFTs Other specified related conditions, third trimester Expected: 08/22/2023, Expires: 09/22/2024 Scheduled Referrals Name Type Priority Associated Diagnoses Orde r Schedule MATERNAL MEDICINE REFERRAL OP Referral Within 3 days (urgent) Elevated LFTs Ordered: 08/22/2023 Health Maintenance Due Date Last Done Comments [...] as of this encounter Visit Diagnoses Diagnosis Elevated LFTs- Primary Other abnormal blood chemistry Other specified related conditions, third trimester documented in this encounter Care Teams Repossession Agent Relationship Specialty Start Date End Date Nati Darling DO [address] [place] [address] PCP - General Family Medicine 03/13/23 documented as of this encounter
--- OUTSIDE RECORDS SUMMARY | 2023-10-08 07:54 | External Medical Summary | Summary of Care ---
Author Name Unknown Organization [facility] Address [address] [place] [address] Phone [phone] Care Team Providers Care Exercise Instruct Name Role Phone Nati Darling DO Primary Care Provider Reason for Visit * Reason Comments Acute Encounter Details Date Type Department Care Team (Late st Contact Info) Description 08/07/2023 8:40 AM EST Office Visit Family Practice [facility] [address] [facility] [place] [address] Bhupendra Xiao PAR[place] Smith [address] [facility] [place] [address] Acute maxillary sinusitis, recurrence not specified*; Non-recurrent acute serous otitis media of both ears Allergies No known active allergiesdocumented as of this encounter (statuses as of 08/07/2023) Medications Medication Sig Dispensed Refills Start Date End Date Status 19 29-1 MG Oral Tablet Chewable Take by mouth. 0 Active Amoxicillin 875 MG Oral TabletIndications:Ac zuri maxillary sinusitis, recurrence not specified Take 1 Tablet by mouth in the morning and 1 Tablet before bedtime. Do all this for 10 days. 20 Tablet 0 08/07/2023 08/17/2023 Active documented as of this encounter (statuses as of 08/07/2023) Active Problems Problem Noted Date Diagnosed Date Rubella non-immune status, antepartum 03/19/2023 Rh negative status during 03/19/2023 Supervision of normal first 03/15/2023 Estimated Date of Delivery Comme nts Yes 10/20/2023 Based on last me nstrual period of 01/13/2023 (Exact Date) documented as of this encounter (statuses as of 08/07/2023) Immunizations Name Administration Dates Next Due DTaP [...] money to get more. Never true 06/08/2023 [place] Depression Scale Answer Date Recorded [place] Depression Scale Total 2 07/27/2023 The thought [...] Reading Time Taken Comments Blood Pressure 120/70 08/07/2023 8:34 AM EST Pulse 103 08/07/2023 8:34 AM EST Temperature 36.6 C (97.9 F) 08/07/2023 8:34 AM ES T Respiratory Rate 16 08/07/2023 8:34 AM EST Oxygen Saturation 97% 08/07/2023 8:34 AM EST Inhaled Oxygen Concentration - - Weight 94.3 kg (208 lb) 08/07/2023 8:34 AM EST Height - - Body Mass Index 30.72 07/27/2023 9:31 AM EST documented in this encounter Progress Notes * Xiao Huizar PA-C - 08/07/2023 9:02 AM EST Images from the original note were not included. History of Present Illness Iraida Garcia is a 22 year old female that presents for Acute Patient is a 22 year old female who presents with illness of a weeks duration. Her symptoms includesome ear ache, headache, facial pressure, nasal congestion, pn drip, sore throat, cough/productive,chest heavy, some vomiting. 29 weeks Works from home. Using tylenol and cough drops. Physical Exam Vitals: 08/07/23 0834 Temp: 36.6 C (97.9 F) Pulse: 103 Resp: 16 SpO2: 97% BP: 120/70 BP Readings from Last 3 Encounters: 08/07/23 120/70 07/27/23 122/74 07/13/23 112/62 Wt Readings from Last 3 Encounters: 08/07/23 94.3 kg (208 lb) 07/27/23 94.8 kg (209 lb) 07/13/23 92.8 kg (204 lb 9.6 oz) General: alert, no distress, well nourished, well developed, and cooperative Head: Normocephalic, No masses, lesions, tenderness or abnormalities Eye Exam: PERRLA, extraocular movements intact, conjunctiva are pink and non- injected, sclera clear Ears: External ears normal, Canals clear, R TM dull and erythematous, L TM dull and erythematous Nose: purulent rhinorrhea, mucosal edema, mucosal erythema Oropharynx: no exudate, lips, buccal mucosa, and tongue normal, mucous membranes are moist, and mild erythema Neck: supple, no adenopathy, no bruits, thyroid normal size, non-tender, without nodularity Heart: regular rate & rhythm, no murmur, and no gallops Lungs: chest symmetric with normal AP diameter, no chest deformities noted, normal respiratory rateand rhythm, no chest wall tenderness, diaphragmatic excursion normal, lungs clear to auscultation I have reviewed the following results: None Assessment and Plan Acute maxillary sinusitis, recurrence not specified (Primary) - Amoxicillin 875 MG Oral Tablet; Take 1 Tablet by mouth in the morning and 1 Tablet before bedtime. Do all this for 10 days. Non-recurrent acute serous otitis media of both ears Wrap-Up Time: I spent a total of 20-29 minutes (exact time 25 mins) on the date of service in preparation, delivery, and documentation of the care provided to Iraida Garcia excluding any time spent in the performance of separately billed services. documented in this encounter Nursing Notes * Renea Whitt LPN - 08/07/2023 8:33 AM EST Pt in today for a cough, congestion, eye drainage, sore throat, runny nose Symptoms x 1 week documented in this encounter Plan of Treatment Upcoming Encounters Date Type Department Care Team (Late st Contact Info) Description 08/08/2023 10:30 AM EST Office Visit Gynecology/Obstetrics [facility] [address] [place] [address] Amy Bautista CRNP [address] [place] [address] 08/21/2023 8:00 AM EST Office Visit Gynecology/Obstetrics [facility] [address] [place] [address] Amy Bautista CRNP [address] [place] [address] 03/14/2024 7:20 AM EDT Office Visit Family Practice [facility] [address] [facility] [place] [address] Nati Darling, [address] [facility] [place] [address] Health Maintenance Due Date Last Done Comments [...] as of this encounter Visit Diagnoses Diagnosis Acute maxillary sinusitis, recurrence not specified- Primary Non-recurrent acute serous otitis media of both ears documented in this encounter Care Teams Exercise Instruct Relationship Specialty Start Date End Date Nati Darling DO [address] [place] [address] PCP - General Family Medicine 03/13/23 documented as of this encounter
--- OUTSIDE RECORDS SUMMARY | 2023-10-08 07:54 | External Medical Summary | Summary of Care ---
Author Name Unknown Organization [facility] Address [address] [place] [address] Phone [phone] Care Team Providers Care Geospatial Image Analyst Name Role Phone Nati Darling DO Primary Care Provider Reason for Visit * Reason Comments Return Visit Encounter Details Date Type Department Care Team (Late st Contact Info) Description 08/08/2023 10:30 AM EST Office Visit Gynecology/Obstetric s [facility] [address] [facility] [place] [address] Pedro Bautista CRNP [address] [place] [address] Rubella non-immune status, antepartum*; Encounter for supervision of normal first in third trimester; Rh negative status during in third trimester Allergies No known active allergiesdocumented as of this encounter (statuses as of 08/08/2023) Medications Medication Sig Dispensed Refills Start Date End Date Status 19 29-1 MG Oral Tablet Chewable Take by mouth. 0 Active Amoxicillin 875 MG Oral TabletIndications:Ac [place] maxillary sinusitis, recurrence not specified Take 1 Tablet by mouth in the morning and 1 Tablet before bedtime. Do all this for 10 days. 20 Tablet 0 08/07/2023 08/17/2023 Active Vitamin B-12 1000 MCG Oral Tablet (Cyanocobalamin) Take 1 Tablet by mouth in the morning. 30 Tablet 5 08/08/2023 Active documented as of this encounter (statuses as of 08/08/2023) Active Problems Problem Noted Date Diagnosed Date Rubella non-immune status, antepartum 03/19/2023 Rh negative status during 03/19/2023 Supervision of normal first 03/15/2023 Estimated Date of Delivery Comme nts Yes 10/20/2023 Based on last me nstrual period of 01/13/2023 (Exact Date) documented as of this encounter (statuses as of 08/08/2023) Immunizations Name Administration Dates Next Due DTaP [...] money to get more. Never true 06/08/2023 [place] Depression Scale Answer Date Recorded [place] Depression Scale Total 2 07/27/2023 The thought [...] Sign Reading Time Taken Comments Blood Pressure 118/70 08/08/2023 10:22 AM EST Pulse - - Temperature - - Respiratory Rate - - Oxygen Saturation - - Inhaled Oxygen Concentration - - Weight 95.2 kg (209 lb 12.8 oz) 023 10:22 AM EST Height 175.3 cm (5' 9") 08/08/2023 10:2 2 AM EST Body Mass Index 30.98 08/08/2023 10:22 AM EST documented in this encounter Progress Notes * Pedro Bautista CRNP - 08/08/2023 10:37 AM EST 29w4d Referral was placed for IV iron since last visit, but pt hasn't been contacted yet about this. Referral visible in chart. computer help desk specialist to look in to this, advised pt to call if still not contacted by the beginning of next week. No other concerns. Baby is active. No bleeding or contractions. LASHAWN Lassiter * Sada Rojo LPN - 08/08/2023 10:25 AM EST 29w4d Pt denies any concerns, has not heard from heme yet. documented in this encounter Miscellaneous Notes * Addendum Note - Pedro Bautista CRNP - 08/08/2023 12:17 PM ESTAddended by: PEDRO BAUTISTA on: 08/08/2023 12:17 PM Modules accepted: Orders documented in this encounter Plan of Treatment Upcoming Encounters Date Type Department Care Team (Late st Contact Info) Description 08/21/2023 8:00 AM EST Office Visit Gynecology/Obstetrics [facility] [address] [place] [address] Pedro Bautista CRNP [address] [place], [place] [address] 09/04/2023 8:30 AM EST Office Visit Gynecology/Obstetrics [facility] [address] [place] [address] BackZuleyma quintana CRNP [address] [place] [address] 09/18/2023 8:30 AM EST Office Visit Gynecology/Obst[facility]s [facility] [address] [place] [address] BackerZuleyma CRNP [address] [place], [place] [address] 09/25/2023 8:00 AM EST Office Visit Gynecology/Obstetrics [facility] [address] [place] [address] Pedro Bautista CRNP [address] [place], [place] [address] 10/02/2023 8:00 AM EST Office Visit Gynecology/Obstetrics [facility] [address] [place] [address] Pedro Bautista CRNP [address] [place] [address] 10/09/2023 8:00 AM EST Office Visit Gynecology/Obstetrics [facility] [address] [place] [address] Pedro Bautista CRNP [address] [place] [address] 10/16/2023 8:00 AM EST Office Visit Gynecology/Obstetrics [facility] [address] [place], [place] [address] Pedro Bautista CRNP [address] [place] [address] 10/23/2023 10:00 AM EST Office Visit Gynecology/Obstetrics [facility] [address] [place], [place] [address] Pedro Batuista CRNP [address] [place] [address] 03/14/2024 7:20 AM EDT Office Visit Family Practice [facility] [address] [facility] [place], [place] [address] Nati Darling, [address] [place] [address] Health Maintenance Due Date Last Done Comments [...] as of this encounter Visit Diagnoses Diagnosis Rubella non-immune status, antepartum- Primary Other specified complication, antepartum Encounter for supervision of normal first in third trimester Supervision of normal first Rh negative status during in third trimester documented in this encounter Care Teams Geospatial Image Analyst Relationship Specialty Start Date End Date Nati Darling DO [address] [place] [address] PCP - General Family Medicine 03/13/23 documented as of this encounter
--- OUTSIDE RECORDS SUMMARY | 2023-10-08 07:54 | External Medical Summary | Summary of Care ---
Author Name Unknown Organization [facility] Address [address] [place] [address] Phone [phone] Care Team Providers Care Director Hematology Name Role Phone Nati Draling DO Primary Care Provider Reason for Visit * Reason Comments Return Visit Encounter Details Date Type Department Care Team (Late st Contact Info) Description 08/21/2023 8:00 AM EST Office Visit Gynecology/Obstetric s [facility] [address] [place] [address] Amy Bautista CRNP [address] [place] [address] Encounter for supervision of normal first in [...] money to get more. Never true 06/08/2023 [place] Depression Scale Answer Date Recorded [place] Depression Scale Total 2 07/27/2023 The thought [...] Description 08/21/2023 4:00 PM EST Pharmacy Pharmacy, [place] [address] [place] [address] Clinic, [facility] [address] [place] [address] 09/04/2023 8:30 AM EST Office Visit [facility]necology[facility]Obst[facility]s [facility] [address] [place] [address] Zuleyma Beltran CRNP [address] [place] [address] 09/18/2023 8:30 AM EST Office Visit [facility]cology[facility] [address] [place] [address] BackZuleyma quintana CRNP [address] [place] [address] 09/25/2023 8:00 AM EST Office Visit [facility] [address] [place] [address] mAy Bautista CRNP [address] [place] [address] 10/02/2023 8:00 AM EST Office Visit [facility]necology[facility] [address] [place] [address] Amy Bautista CRNP [address] [place] [address] 10/09/2023 8:00 AM EST Office Visit [facility]cology[facility] [address] [place] [address] Amy Bautista CRNP [address] [place] [address] 10/16/2023 8:00 AM EST Office Visit [facility] [address] [place], [place] [address] Amy Bautista CRNP [address] [place] [address] 10/23/2023 10:00 AM EST Office Visit Gynecology/Obstetrics [facility] [address] [place], [place] [address] Amy Bautista CRNP [address] [place] [address] 03/14/2024 7:20 AM EDT Office Visit Family Practice [facility] [address] [facility] [address] Nati Darling DO [address] [facility] [place], [place] [address] Scheduled Orders Name Type Priority Associated Diagnoses Orde r Schedule CBC WITH WBC DIFFERENTIAL AND ANEMIA REFLEX WORKUP Lab Routine Antepartum anemia complicating Expected: 08/21/2023, Expires: 08/21/2024 HEPATIC FUNCTION PANEL Lab Routine Pruritus Expected: 08/21/2023 (Approximate), Expires: 08/21/2024 BILE ACIDS, FRACTIONATED AND TOTAL [...] as of this encounter Visit Diagnoses Diagnosis Encounter for supervision of normal first in third trimester- Primary Supervision of normal first Rubella non-immune status, antepartum Other specified complication, antepartum Rh negative, antepartum Rhesus isoimmunization affecting management of mother, antepartum condition Pruritus Unspecified pruritic disorder Antepartum anemia complicating Anemia, antepartum documented in this encounter Care Teams Director Hematology Relationship Specialty Start Date End Date Nati Darling DO [facility] [address] [address] PCP - General Family Medicine 03/13/23 documented as of this encounter
--- OUTSIDE RECORDS SUMMARY | 2023-10-08 07:54 | External Medical Summary | Summary of Care ---
Author Name Unknown Organization [facility] Address [address] [place] [address] Phone [phone] Care Team Providers Care Medical Biller Name Role Phone Rubénkeysha Nati Haynes DO Primary Care Provider Reason for Referral * Evaluate & Treat - Unlimited Visits (Within 10 days (routine)) - Pending Review Specialty Diagnoses / Procedures Referred By Contprabhu t Referred To Contact Pharmacist / Pharmacy Diagnoses VINOD (iron deficiency anemia) Love Queen PA-C [address] [place] [address] Referral ID Status Reason Start Date Expiration Date Visits Requested Visits Authorized [id number] Pending Review Specialty Services Required 3 [phone] Question Answer Referral Priority Within 10 days (routine) Where should this appointment be scheduled? 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 Reason for Referral: Anemia Comments Pharmacist Medication Therapy Management: Iron deficiency anemia Joseph Amezcua RN Reason for Visit * Reason Onset Date Comments Blood Management Program 08/08/2023 Encounter Details Date Type Department Care Team (Late st Contact Info) Description 08/08/2023 Telephone Patient Blood Management, [facility] [address] [place] [address] Love Queen PA-C [address] [place] [address] Blood Management Program Allergies No known active allergiesdocumented as of this encounter (statuses as of 08/29/2023) Medications Medication Sig Dispensed Refills Start Date End Date Status 19 29-1 MG Oral Tablet Chewable Take by mouth. 0 Active Vitamin B-12 1000 MCG Oral Tablet (Cyanocobalamin) Take 1 Tablet by mouth in the morning. 30 Tablet 5 08/08/2023 Active Amoxicillin 875 MG Oral TabletIndications:A cute maxillary sinusitis, recurrence not specified Take 1 Tablet by mouth in the morning and 1 Tablet before bedtime. Do all this for 10 days. 20 Tablet 0 08/07/2023 08/17/2023 documented as of this encounter (statuses as of 08/29/2023) Active Problems Problem Noted Date Diagnosed Date Elevated LFTs 08/22/2023 Overview: Ask A Doc to [facility], requesting referral be placed. Iron deficiency anemia 08/21/2023 Rubella non-immune status, antepartum 03/19/2023 Rh negative status during 03/19/2023 Supervision of normal first 03/15/2023 Estimated Date of Delivery Comme nts Yes 10/20/2023 Based on last me nstrual period of 01/13/2023 (Exact Date) documented as of this encounter (statuses as of 08/29/2023) Immunizations Name Administration Dates Next Due DTaP [...] money to get more. Never true 06/08/2023 Wirtz Depression Scale Answer Date Recorded W[place]z Depression Scale Total 2 07/27/2023 The thought [...] encounter Miscellaneous Notes * Telephone Encounter - Joseph Amezcua RN - 08/08/2023 12:14 PM EST Recommend IV iron per OB MTM protocol. Patient is agreeable prefers infusion at [facility]. documented in this encounter Plan of Treatment Upcoming Encounters Date Type Department Care Team (Late st Contact Info) Description 09/04/2023 8:30 AM EST Office Visit Gynecology/Obstetrics [facility] [address] [place] [address] Zuleyma Beltran CRNP [address] [place] [address] 09/04/2023 4:00 PM EST Pharmacy Pharmacy, [facility] [address] [place], [place] [id number] Clinic, [facility] [address] [place] [address] 09/07/2023 7:45 AM EST Office Visit Technical Programs Manager OB Maternal Medicine [facility] Juan Diego Gonzales [address] [place] [address] Dr [address] [place] [address] Mona Quintanilla, [address] [place] [address] 09/07/2023 7:45 AM EST Imaging Maternal Medicine [facility] Juan Diego Gonzales [address] [place] [address] Dr [address] [facility] [place] [address] 09/18/2023 8:30 AM EST Office Visit Gynecology/Obstetrics [facility] [address] [place] [address] Zuleyma Beltran CRNP [address] [place] [address] 09/25/2023 8:00 AM EST Office Visit Gynecology/Obstetrics [facility] [address] [place] [address] Amy Bautista CRNP [address] [place] [address] 10/02/2023 8:00 AM EST Office Visit Gynecology/Obstetrics [facility] [address] [place] [address] Amy Bautista CRNP [address] [place] [address] 10/09/2023 8:00 AM EST Office Visit Gynecology/Obstetrics [facility] [address] [place] [address] Amy Bautista CRNP [address] [place] [address] 10/16/2023 8:00 AM EST Office Visit Gynecology/Obstetrics [facility] [address] [place] [address] Amy Bautista CRNP [address] [place] [address] 10/23/2023 10:00 AM EST Office Visit Gynecology/Obstetrics [facility] [address] [place] [address] Amy Bautista CRNP [address] [place] [address] 03/14/2024 7:20 AM EDT Office Visit Family Practice [facility] [address] [place] [address] Nati Darling, 200 [facility] [place] [address] Scheduled Referrals Name Type Priority Associated Diagnoses [...] as of this encounter Visit Diagnoses Diagnosis VINOD (iron deficiency anemia)- Primary Iron deficiency anemia, unspecified documented in this encounter Care Teams Medical Biller Relationship Specialty Start Date End Date Nati Darling DO [address] [place] [address] PCP - General Family Medicine 03/13/23 documented as of this encounter
--- OUTSIDE RECORDS SUMMARY | 2023-10-08 07:54 | External Medical Summary ---
Author Name Unknown Address Unknown Organization : Laboratory Report Ordering Provider Test Date Status AZEEM VASQUEZ 08/21/2023 08:43:32 Final Observation Date Value Abnormality Reference (Units ) Status Bile acid [Moles/volume] in Serum --fasting 08/21/2023 08:43:32 SEE BELOW Abnormal Final TESTS--------- ----RESULTS--------UNITS--REF. RANGE---
Cholic Acid 7.3 H umol/L < OR = 1.8
Deoxycholic Acid 1.7 umol/L < OR = 2.4
Chenodeoxycholic Acid 4.8 H umol/L < OR = 3.1
Total Bile Acids 13.8 H umol/L < OR = 6.8
This test was developed and its analytical
performance characteristics have been determined
by [employer]. It has not been cleared or
approved by FDA. This assay has been validated
pursuant to the CLIA regulations and is used for
clinical purposes.
Test performed by [employer] [facility]
[address],
[place] [address]

Marksmanship Instructor: Kayla Herrera MD,PHD,FABIAN Performing Location
--- OUTSIDE RECORDS SUMMARY | 2023-10-08 07:54 | External Medical Summary | Summary of Care ---
Author Name Unknown Organization [facility] Address [address] [place] [address] Phone [phone] Care Team Providers Care Recreation Assistant Name Role Phone Lisset Nati Haynes DO Primary Care Provider Reason for Visit * Reason Comments Blood Management Program Encounter Details Date Type Department Care Team (Late st Contact Info) Description 08/08/2023 Documentation Patient Blood Management, [place] [address] [place] [address] Joseph Amezcua, RN Allergies No known active allergiesdocumented as of [...] money to get more. Never true 06/08/2023 Peerless Depression Scale Answer Date Recorded Peerless Depression Scale Total 2 07/27/2023 The thought [...] as of this encounter Progress Notes * Joseph Amezcua RN - 08/08/2023 12:11 PM EST REFERRAL - Patient Blood Management Name: Iraida Garcia REQUESTING SERVICE: [facility] OB REASON FOR REFERRAL: new evaluation outpatient, anemia in [facility]: 10/20/23 Anemia Evaluation: Latest Reference Range & Units 07/27/23 10:12 HGB 12.0 - 15.3 g/dL 10.4 (L) HCT 36.0 - 45.2 % 32.9 (L) Iron 33 - 151 ug/dL 84 Iron Binding Capacity 250 - 425 ug/dL 426 (H) Transferrin Saturation Percent 15 - 55 % 20 Ferritin 13 - 150 ng/mL 14 Vitamin B12 232 - 1,245 pg/mL 278 Folic Acid >4.5 ng/mL >20.0 Immature Reticuloctye Fraction 2.5 - 20.6 % 33.6 (H) Reticulocyte Hemoglobin 29.7 - 37.4 pg 31.6 (L): Data is abnormally low (H): Data is abnormally high Current Patient Medications: Medications that may impair hemostasis: none Medications that may impair iron absorption: none Patient Refused Blood Transfusion? (e.g. Scientology): no Possible Contributing Factors: iron deficiency and vitamin B12 deficiency Treatment Recommendations: B12 1000mcg PO daily IV iron per OB MTM protocol. 08/08 - OB MTM submitted for IV iron. Thank you for allowing Blood Management to participate in the care of this patient. documented in this encounter Plan of Treatment Upcoming Encounters Date Type Department Care Team (Late st Contact Info) Description 08/21/2023 8:00 AM EST Office Visit Gynecology/Obstetrics [facility] [address] [place] [address] Amy Bautista CRNP [address] [place] [address] 09/04/2023 8:30 AM EST Office Visit Gynecology/Obstetrics [facility] [address] [place] [address] Zuleyma Beltran CRNP [address] [place], [place] [address] 09/18/2023 8:30 AM EST Office Visit Gynecology/Obstetrics [facility] [address] [place], [place] [address] Zuleyma Beltran CRNP [address] [place], [place] [address] 09/25/2023 8:00 AM EST Office Visit Gynecology/Obstetrics [facility] [address] [place] [address] Amy Bautista CRNP [address] [place], [place] [address] 10/02/2023 8:00 AM EST Office Visit Gynecology/Obstetrics [facility] [address] [place] [address] Amy Bautista CRNP [address] [place] [address] 10/09/2023 8:00 AM EST Office Visit Gynecology/Obstetrics [facility] [address] [place] [address] Amy Bautista CRNP [address] [place] [address] 10/16/2023 8:00 AM EST Office Visit Gynecology/Obstetrics [facility] [address] [place] [address] Amy Bautista CRNP [address] [place] [address] 10/23/2023 10:00 AM EST Office Visit Gynecology/Obstetrics [facility] [address] [place] [address] Amy Bautista CRNP [address] [place] [address] 03/14/2024 7:20 AM EDT Office Visit Family Practice [facility] 200 [facility], [place] [address] Nati Darling, 200 [facility] [place], [place] [address] Health Maintenance Due Date Last Done Comments [...] filedocumented as of this encounter Care Teams Recreation Assistant Relationship Specialty Start Date End Date Nati Darling DO [address] [place] [address] PCP - General Family Medicine 03/13/23 documented as of this encounter
--- OUTSIDE RECORDS SUMMARY | 2023-10-08 07:54 | External Medical Summary | Summary of Care ---
Author Name Unknown Organization [facility] Address [address] [place] [address] Phone [phone] Care Team Providers Care Client Professional Name Role Phone Nati Darling DO Primary Care Provider Reason for Visit * Reason Comments Return Visit Encounter Details Date Type Department Care Team (Late st Contact Info) Description 08/08/2023 10:30 AM EST Office Visit Gynecology/Obstetric s [facility] [address] [facility] [place] [address] Amy Bautista CRNP [address] [place] [address] Rubella non-immune status, antepartum*; Encounter for supervision of normal first in third trimester; Rh negative status during in third trimester Allergies No known active allergiesdocumented as of this encounter (statuses as of 08/08/2023) Medications Medication Sig Dispensed Refills Start Date End Date Status 19 29-1 MG Oral Tablet Chewable Take by mouth. 0 Active Amoxicillin 875 MG Oral TabletIndications:Ac turtle mountain maxillary sinusitis, recurrence not specified Take 1 [...] money to get more. Never true 06/08/2023 [place] Depression Scale Answer Date Recorded [place] Depression Scale Total 2 07/27/2023 The thought [...] Progress Notes * Amy Bautista CRNP - 08/08/2023 10:37 AM EST 29w4d Referral was placed for IV iron since last visit, but pt hasn't been contacted yet about this. Referral visible in chart. test deskman to look in to this, advised pt to call if still not contacted by the beginning of next week. No other concerns. Baby is active. No bleeding or contractions. LASHAWN Lassiter * Sada Rojo LPN - 08/08/2023 10:25 AM EST 29w4d Pt denies any concerns, has not heard from heme yet. documented in this encounter Plan of Treatment Upcoming Encounters Date Type Department Care Team (Late st Contact Info) Description 08/21/2023 8:00 AM EST Office Visit Gynecology/Obstetrics [facility] [address] [place] [address] Amy Bautista CRNP [address] [place] [address] 09/04/2023 8:30 AM EST Office Visit Gynecology/Obstetrics [facility] [address] [place] [address] Zuleyma Beltran CRNP [address] [place] [address] 09/18/2023 8:30 AM EST Office Visit Gynecology/Obstetrics [facility] [address] [place] [address] Zuleyma Beltran CRNP [address] [place] [address] 09/25/2023 8:00 AM EST Office Visit Gynecology/Obstetrics [facility] [address] [place] [address] Amy Bautista CRNP [address] [place] [address] 10/02/2023 8:00 AM EST Office Visit Gynecology/Obstetrics [facility] [address] [place] [address] Amy Bautista CRNP [address] [place] [address] 10/09/2023 8:00 AM EST Office Visit Gynecology/Obstetrics [facility] [address] [place] [address] Amy Bautista CRNP [address] [place] [address] 10/16/2023 8:00 AM EST Office Visit Gynecology/Obstetrics [facility] [address] [place] [address] Amy Bautista CRNP [address] [place] [address] 10/23/2023 10:00 AM EST Office Visit Gynecology/Obstetrics [facility] [address] [place] [address] Amy Bautista CRNP [address] [place] [address] 03/14/2024 7:20 AM EDT Office Visit Family Practice [facility] 200 [place] [address] Nati Darling, 200 [place] [address] Health Maintenance Due Date Last Done Comments [...] trimester documented in this encounter Care Teams Client Professional Relationship Specialty Start Date End Date Nati Darling DO [address] [place] [address] PCP - General Family Medicine 03/13/23 documented as of this encounter
--- OUTSIDE RECORDS SUMMARY | 2023-10-08 07:54 | External Medical Summary | Summary of Care ---
Author Name Unknown Organization [facility] Address [address] [place] [address] Phone [phone] Care Team Providers Care Utilization Management Manager Name Role Phone Nati Darling DO Primary Care Provider Reason for Referral * (Within 10 days (routine)) Specialty Diagnoses / Procedures Referred By Contprabhu t Referred To Contact Love Queen PA-C [address] [place] [id number] Referral ID Status Reason Start Date Expiration Date Visits Re quested Visits Authorized Question Answer Referral Priority Within 10 days (routine) Where should this appointment be scheduled? [facility] Encounter Details Date Type Department Care Team (Late st Contact Info) Description 08/02/2023 Telephone OR [facility], Operating Room [facility] [address] [place] [phone] Love Queen PA-C [address] [place] [address] Allergies No known active allergiesdocumented as of [...] money to get more. Never true 06/08/2023 Dante Depression Scale Answer Date Recorded Dante Depression Scale Total 2 07/27/2023 The thought [...] 08/08/2023 10:30 AM EST Office Visit Gynecology/Obstetrics [facility] [address] [place] [address] Amy Bautista CRNP [address] [place] [address] 08/21/2023 8:00 AM EST Office Visit Gynecology/Obstetrics [facility] [address] [place] [address] Amy Bautista CRNP [address] [place] [address] 03/14/2024 7:20 AM EDT Office Visit Family Practice [facility] [place] [address] [facility], [place] [address] Nati Darling DO [address] [place] [address] Scheduled Referrals Name Type Priority Associated Diagnoses [...] Primary documented in this encounter Care Teams Utilization Management Manager Relationship Specialty Start Date End Date Nati Darling DO [address] [place] [address] PCP - General Family Medicine 03/13/23 documented as of this encounter
--- OUTSIDE RECORDS SUMMARY | 2023-10-08 07:54 | External Medical Summary | Summary of Care ---
Author Name Unknown Organization [facility] Address [address] [place] [address] Phone [phone] Care Team Providers Care Sewer Name Role Phone Rubénkeysha Nati Haynes DO Primary Care Provider Reason for Visit * Reason Onset Date Comments Referral 08/22/2023 Encounter Details Date Type Department Care Team (Late st Contact Info) Description 08/22/2023 Telephone Auto Radiator Specialist Obstetrics Maternal Medicine, [place] [address] [place], [place] [phone] [place], Nurse Auto Radiator Specialist [facility] [address] [place], [place] [phone] Referral Allergies No known active allergiesdocumented as of [...] LFTs 08/22/2023 Overview: Ask A Doc to [facility], requesting referral be placed. Iron [...] money to get more. Never true 06/08/2023 [place] Depression Scale Answer Date Recorded [place] Depression Scale Total 2 07/27/2023 The thought [...] encounter Miscellaneous Notes * Telephone Encounter - Lolis Serrano OSA - 08/22/2023 11:04 AM EST spoke with pt, appts scheduled * Telephone Encounter - Chayito Longoria MED ASSIST - 08/22/2023 10:23 AM EST Estimated Date of Delivery: 10/20/23 Please schedule for LONG SCAN, in time frame of within 2-3 weeks at location [facility] with the indication of elevated LFTs. Referring Provider: Amy Bautista CRNP documented in this encounter Plan of Treatment Upcoming Encounters Date Type Department Care Team (Late st Contact Info) Description 08/28/2023 4:00 PM EST Pharmacy Pharmacy, [place] [address] [facility] [place] [address] Clinic, [place] [address] [place] [address] 09/04/2023 8:30 AM EST Office Visit Gynecology/Obstetrics [facility] 132 [facility] [place] [address] BackZuleyma quintana CRNP [address] [place] [address] 09/07/2023 7:45 AM EST Office Visit Auto Radiator Specialist OB Maternal Medicine [facility] Juan Diego Gonzales [address] [place] [address] Dr [address] [facility] [address] Mona Quintanilla, DO [address] [facility] [address] 09/07/2023 7:45 AM EST Imaging Maternal Medicine [facility] Juan Diego Gonzales [address] [place] [address] Dr [address] [facility] [address] 09/18/2023 8:30 AM EST Office Visit Gynecology/Obstetrics [facility] [address] [place] [address] BackerZuleyma CRNP [address] [place] [address] 09/25/2023 8:00 AM EST Office Visit Gynecology/Obstetrics [facility] [address] [place] [address] Amy Bautista CRNP [address] [place] [address] 10/02/2023 8:00 AM EST Office Visit Gynecology/Obstetrics [facility] [address] [place] [address] Amy Bautista CRNP [address] [place] [address] 10/09/2023 8:00 AM EST Office Visit Gynecology/Obstetrics [facility] [address] [place] [address] Amy Bautista CRNP [address] [place] [address] 10/16/2023 8:00 AM EST Office Visit Gynecology/Obstetrics [facility] [address] [place] [address] Amy Bautista CRNP [address] [place] [address] 10/23/2023 10:00 AM EST Office Visit Gynecology/Obstetrics [facility] [address] [place] [address] Amy Bautista CRNP [address] [place] [address] 03/14/2024 7:20 AM EDT Office Visit Family Practice [facility] [address] [facility] [address], [place] [address] Nati Darling, [address] [facility] [place] [address] Health Maintenance Due Date Last Done Comments [...] filedocumented as of this encounter Care Teams Sewer Relationship Specialty Start Date End Date Nati Darling DO [address] [place] [address] PCP - General Family Medicine 03/13/23 documented as of this encounter
--- OUTSIDE RECORDS SUMMARY | 2023-10-08 07:55 | External Medical Summary | Summary of Care ---
Author Name Unknown Organization [facility] Address [address] [place] [address] Phone [phone] Care Team Providers Care White Metal Corrosion Proofer Name Role Phone Nati Darling DO Primary Care Provider Reason for Referral * (Within 10 days (routine)) Specialty Diagnoses / Procedures Referred By Contprabhu t Referred To Contact Lvoe Queen PA-C [address] [place] [address] Referral ID Status Reason Start Date Expiration Date Visits Re quested Visits Authorized Question Answer Referral Priority Within 10 days (routine) Where should this appointment be scheduled? [facility] Encounter Details Date Type Department Care Team (Late st Contact Info) Description 08/02/2023 Telephone OR [facility], Operating Room [facility] [address] [place] [phone] Love Queen PA-C [address] [place] [address] Allergies No known active allergiesdocumented as of this encounter (statuses as of 08/02/2023) Medications Medication Sig Dispensed Refills Start Date End Date Status 19 29-1 MG Oral Tablet Chewable Take by mouth. 0 Activ e documented as of this encounter (statuses as of 08/02/2023) Active Problems Problem Noted Date Diagnosed Date Rubella non-immune status, antepartum 03/19/2023 Rh negative status during 03/19/2023 Supervision of normal first 03/15/2023 Estimated Date of Delivery Comme nts Yes 10/20/2023 Based on last me nstrual period of 01/13/2023 (Exact Date) documented as of this encounter (statuses as of 08/02/2023) Immunizations Name Administration Dates Next Due DTaP [...] money to get more. Never true 06/08/2023 [place] Depression Scale Answer Date Recorded [place] Depression Scale Total 2 07/27/2023 The thought [...] 08/08/2023 10:30 AM EST Office Visit Gynecology/Obstetrics [facility] [address] [address] Amy Bautista CRNP [address] [place] [address] 08/21/2023 8:00 AM EST Office Visit Gynecology/Obstetrics [facility] [address] [place] [address] Amy Bautista CRNP [address] [place] [address] 03/14/2024 7:20 AM EDT Office Visit Family Practice [facility] [place] 200 [facility] [place], [place] [address] Nati Darling DO 200 [facility] [place] [address] Scheduled Referrals Name Type Priority Associated Diagnoses [...] Primary documented in this encounter Care Teams White Metal Corrosion Proofer Relationship Specialty Start Date End Date Nati Darling DO [address] [place] [address] PCP - General Family Medicine 03/13/23 documented as of this encounter
--- OUTSIDE RECORDS SUMMARY | 2023-10-08 07:55 | External Medical Summary ---
Author Name Unknown Address Unknown Organization K01:[facility]ATORY [facility] - [address] [place] [address] Laboratory Report Ordering Provider Test Date Status CARIN HAYWARD 07/27/2023 10:12:59 Final Observation Date Value Abnormality Reference (Units ) Status Vitamin B12 07/27/2023 10:12:59 [id number] (pg/mL) Final Performing Location [facility] - [address] [place] [address]
--- OUTSIDE RECORDS SUMMARY | 2023-10-08 07:55 | External Medical Summary ---
Author Name Unknown Address Unknown Organization K01:[facility] - [address] [place] [address] Laboratory Report Ordering Provider Test Date Status CARIN HAYWARD 07/27/2023 10:12:59 Final Observation Date Value Abnormality Reference (Units ) Status ABO 07/27/2023 10:12:59 O Final RH 07/27/2023 10:12:59 Negative Final RED BLOOD CELL ANTIBODY SCREEN 07/27/2023 10:12:59 Negative Final SPECIMEN EXPIRATION DATE 07/27/2023 10:12:59 07/30/2023 23:59 Final Performing Location [facility]ATORY [facility] - [address] [place] [address]
--- OUTSIDE RECORDS SUMMARY | 2023-10-08 07:55 | External Medical Summary ---
Author Name Unknown Address Unknown Organization [id number]:LABORATORY [facility] [place] - [facility] [place] [facility] [address] Laboratory Report Ordering Provider Test Date Status CARIN HAYWARD 07/27/2023 10:12:59 Final Observation Date Value Abnormality Reference (Units ) Status WBC, Total 07/27/2023 10:12:59 10.10 4.00-10.8 0 (K/uL) Final RBC 07/27/2023 10:12:59 3.47 3.85-5.15 (M/uL) Final Hemoglobin 07/27/2023 10:12:59 10.4 Below low normal 12 .0-15.3 (g/dL) Final Anemia reflex testing trigge rs on a HGB < 12.0 for Females and HGB < 13.0 for Males in accordance with the WHO Anemia Guidelines
Anemia reflex testing triggers on a HGB < 12.0 for Females and HGB < 13.0 for Males in accordance with the WHO Anemia Guidelines HCT 07/27/2023 10:12:59 32.9 Below low normal 36. 0-45.2 (%) Final MCV 07/27/2023 10:12:59 94.8 81.5-97.5 (fL) Final MCH 07/27/2023 10:12:59 30.0 27.0-34.0 (pg) Final MCHC 07/27/2023 10:12:59 31.6 32.0-36.0 (g/dL) Final RDW 07/27/2023 10:12:59 13.6 11.5-15.5 (%) Final Platelets 07/27/2023 10:12:59 237 140-400 (K /uL) Final MPV 07/27/2023 10:12:59 11.3 6.6-11.1 ( fL) Final Nucleated erythrocytes/100 leukocytes [Ratio] in Blood by Automated count 07/27/2023 10:12:59 0 <=0 (/100 WBCs) Final Performing Location LABORATORY [facility] [place] - [address] [facility] [address]
--- OUTSIDE RECORDS SUMMARY | 2023-10-08 07:55 | External Medical Summary ---
Author Name Unknown Address Unknown Organization [id number]:[place] [facility] [place] [address] [place] [address] Laboratory Report Ordering Provider Test Date Status CARIN HAYWARD 07/27/2023 10:12:59 Final Observation Date Value Abnormality Reference (Units ) Status Iron 07/27/2023 10:12:59 84 33-151 (ug/dL) Final Iron-binding capacity 07/27/2023 10:12:59 426 Above high normal 250-425 (ug/dL) Final Transferrin Sat % 07/27/2023 10:12:59 20 15-55 (%) Final Performing Location [place] [facility] [place] [address] [place] [address]
--- OUTSIDE RECORDS SUMMARY | 2023-10-08 07:55 | External Medical Summary | Summary of Care ---
Author Name Unknown Organization [facility] Address [address] [place] [address] Phone [phone] Care Team Providers Care Airport Representative Name Role Phone Nati Darling DO Primary Care Provider Reason for Visit * Reason Comments Return Visit Encounter Details Date Type Department Care Team Description 04/16/2023 Office Visit Gynecology/Obstetrics Harryadal Khan [address] [place] [address] Love Queen PA-C [address] [place] [address] Encounter for supervision of normal first in first trimester*; Rubella non-immune status, antepartum; Rh negative status during in first trimester Allergies No known active allergiesdocumented as of this encounter (statuses as of 04/16/2023) Medications Medication Sig Dispensed Refills Start Date End Date Status 19 29-1 MG Oral Tablet Chewable Take by mouth. 0 Activ e documented as of this encounter (statuses as of 04/16/2023) Active Problems Problem Noted Date Rubella non-immune status, antepartum Rh negative status during 11/2022 Supervision of normal first Estimated Date of Delivery Comme nts Yes 10/20/2023 Based on last me nstrual period of 01/13/2023 (Exact Date) documented as of this encounter (statuses as of 04/16/2023) Immunizations Name Administration Dates Next Due DTaP - Dipth/Tet/Acell Pertussis 004,07/17/2000,06/28/1999,04/25,03/01/1999 HIB 4 dose (Acthib) 01/03/2000, 9,04/25/1999,03/01 HPV Vaccine, 9-Valent 11/20/2017,04/26/2017 Hep A - Hepatitis A (ped/ado le, 1-18 Yrs) 04/26/2017 Hepatitis B Vaccine 06/28/1999,01/31/1999,1998 Hepatitis B, 0-19 yrs 06/28/1999,01/31/1999,12/16 IPV - Polio Virus Vaccine (Inact) 2003,01/03/2000,04/25/1999,03/01 MMR - Measles/Mumps/Rubella Vaccine 03/22/2004,1 Meningococcal MCV4P Conjugat e Vaccine (Menactra) 09/14/2015,08/03/2010 Pneumococcal Conjugate Vacc, 13 Valent (Prevnar) 07/17/2000,01/03/2000 TDAP (age 11 and older)(Adacel) 08/03/2010 Varicella Vaccine (Chicken Pox) 04/08/2007,07/17 documented as of this encounter Social History Tobacco Use Types Packs/Day Years Used Date Smoking Tobacco: Never Smokeless Tobacco: Never Alcohol Use Standard Drinks/Week Comments Not Currently 0 (1 standard drink = 0.6 oz pur e alcohol) Food Insecurity Answer Date Recorded Within the past 12 months, y ou worried that your food would run out before you got money to buy more. Never true 02/27/2023 Within the past 12 months, t he food you bought just didn't last and you didn't have money to get more. Never true 02/27/2023 Estimated Date of Delivery Comme nts Yes 10/20/2023 Based on last me nstrual period of 01/13/2023 (Exact Date) Sex Assigned at Date Recorded Female 02/08/2023 7:52 AM E DT Job Start Date Occupation Industry Not on file Not on file Not on file documented as of this encounter Last Filed Vital Signs Vital Sign Reading Time Taken Comments Blood Pressure 122/74 04/16/2023 11:23 AM EDT Pulse - - Temperature - - Respiratory Rate - - Oxygen Saturation - - Inhaled Oxygen Concentration - - Weight 84.8 kg (187 lb) 04/16/2023 11:23 AM EDT Height 175.3 cm (5' 9") 04/16/2023 11:23 AM EDT Body Mass Index 27.62 04/16/2023 11:23 AM EDT documented in this encounter Progress Notes * Love Queen PA-C - 04/16/2023 11:41 AM EDT 13w2d Continues with some nausea and occasional vomiting. It is improving, declines additional assistancewith medication at this time. Reviewed small frequent meals, seabands, and lauren. Desires Qnatal testing, order placed. RTC 4 weeks Love Queen PA-C documented in this encounter Nursing Notes * Malgorzata Jaeger LPN - 04/16/2023 11:28 AM EDT 13w2d Denies concerns. +nausea,+vomiting. documented in this encounter Plan of Treatment Upcoming Encounters Date Type Specialty Care Team Description 05/15/2023 Office Visit Gynecology Obstetrics Amy Bautista CRNP [address] [place] [address] 03/14/2024 Office Visit [facility] [address] [facility] [address] Pending Results Name Type Priority Associated Diagnoses Date /Time QNATAL ADVANCED (QUEST) Lab Routine Supervision of normal first 04/16/2023 11:49 AM EDT Scheduled Orders Name Type Priority Associated Diagnoses Orde r Schedule QNATAL ADVANCED (QUEST) Lab Routine Encounter for supervision of normal first in first trimester Expected: 04/16/2023, Expires: 04/16/2024 Health Maintenance Due Date Last Done Comments COVID-19 Vaccine (#1) 06/25/1999 GARDASIL-HPV IMMUNIZATION SE GAVIN (3 - 3-dose series) 03/22/2018 11/20/2017, 04/26/2017 DTaP,Tdap,and Td Vaccines (7 - Td or Tdap) 08/03/2020 08/03/2010, 03/22/2004, 07/17/2000, Additional history exists Influenza Vaccine (FLU shot) (#1) 2023 Depression Screening, Annual for Pts 12 and Over 03/13/2024 03/13/2023 Gonorrhea / Chlamydia Screen 03/15/2024 03/15/2023 Pap Smear 03/15/2026 03/15/2023 Hepatitis B Completed 06/28/1999, 06/17, 01/31/1999, Additional history exists Pneumococcal Vaccine: Pediat rics (0 to 5 Years) and At-Risk Patients (6 to 64 Years) Completed 07/17/2000, 01/03/2000 MENINGOCOCCAL (MENACTRA/MENVEO) Completed 5, 08/03/2010 Hepatitis C Screening Completed 03/15/2023 , 03/15/2023, 03/15/2023 documented as of this encounter Medical Devices Not on filedocumented as of this encounter Visit Diagnoses Diagnosis Encounter for supervision of normal first in first trimester- Primary Supervision of normal first Rubella non-immune status, antepartum Other specified complication, antepartum Rh negative status during in first trimester documented in this encounter Care Teams Airport Representative Relationship Specialty Start Date End Date Nati Darling DO [address] [place] [address] PCP - General Family Medicine 03/13/23 documented as of this encounter
--- OUTSIDE RECORDS SUMMARY | 2023-10-08 07:55 | External Medical Summary ---
Author Name Unknown Address Unknown Organization [id number]:LABORATORY [facility] [place] - [address] [facility] [address] Laboratory Report Ordering Provider Test Date Status CARIN HAYWARD 07/27/2023 10:12:59 Final Observation Date Value Abnormality Reference (Units ) Status Treponema pallidum Ab [Presence] in Serum by Immunoassay 07/27/2023 10:12:59 Nonreactive Nonreactive Final No serologic evidence of syp hilis. No additional testing clinicially indicated at this time. Consider repeat testing in 2-4 weeks if acute or primary syphilis is suspected. Performing Location LABORATORY [facility] [place] - [address] [place] [address]
--- OUTSIDE RECORDS SUMMARY | 2023-10-08 07:55 | External Medical Summary ---
Author Name Unknown Address Unknown Organization [id number]:LABORATORY [facility] - [address] [place] [address] Laboratory Report Ordering Provider Test Date Status CARIN HAYWARD 07/27/2023 10:12:59 Final Observation Date Value Abnormality Reference (Units ) Status TSH 07/27/2023 10:12:59 2.14 0.27-4.20 (uIU/mL) Final Performing Location LABORATORY [facility] - [address] [place] [address]
--- OUTSIDE RECORDS SUMMARY | 2023-10-08 07:55 | External Medical Summary ---
Author Name Unknown Address Unknown Organization [id number]:LABORATORY [facility] [place] - [address] [place] [address] Laboratory Report Ordering Provider Test Date Status CARIN HAYWARD 07/27/2023 10:12:59 Final Observation Date Value Abnormality Reference (Units ) Status Ferritin 07/27/2023 10:12:59 14 13-150 (ng /mL) Final Performing Location [facility]ORY [facility] - [address] [place] [address]
--- OUTSIDE RECORDS SUMMARY | 2023-10-08 07:55 | External Medical Summary | Summary of Care ---
Author Name Unknown Organization [facility] Address [address] [place] [address] Phone [phone] Care Team Providers Care Solar Sales Energy Advisor Name Role Phone Nati Darling DO Primary Care Provider Reason for Visit * Reason Comments Return Visit Encounter Details Date Type Department Care Team (Late st Contact Info) Description 07/27/2023 9:30 AM EST [facility] [address] [place] [address] Rony Callahan MD [address] [place] [address] Rubella non-immune status, antepartum*; Encounter for supervision of normal first in second trimester; Rh negative status during in third trimester Allergies No known active allergiesdocumented as of this encounter (statuses as of 07/27/2023) Medications Medication Sig Dispensed Refills Start Date End Date Status 19 29-1 MG Oral Tablet Chewable Take by mouth. 0 Activ e Hospital, Clinic, or Other Facility Administered Medication Ordered Dose Route Frequency Start Date End Date Status Rho D Immune Globulin (Rhophylac) inj 300 mcgIndications:Rubella non-immune status, antepartum,Encounter for supervision of normal first in second trimester,Rh negative status during in third trimester 300 mcg IM ONCE 07/27/2023 07/27/2023 Ended documented as of this encounter (statuses as of 07/27/2023) Active Problems Problem Noted Date Diagnosed Date Rubella non-immune status, antepartum 03/19/2023 Rh negative status during 03/19/2023 Supervision of normal first 03/15/2023 Estimated Date of Delivery Comme nts Yes 10/20/2023 Based on last me nstrual period of 01/13/2023 (Exact Date) documented as of this encounter (statuses as of 07/27/2023) Immunizations Name Administration Dates Next Due DTaP [...] money to get more. Never true 06/08/2023 Rake Depression Scale Answer Date Recorded Rake Depression Scale Total 2 07/27/2023 The thought [...] Reading Time Taken Comments Blood Pressure 122/74 07/27/2023 9:31 AM EST Pulse - - Temperature - - Respiratory Rate - - Oxygen Saturation - - Inhaled Oxygen Concentration - - Weight 94.8 kg (209 lb) 07/27/2023 9:31 AM EST Height 175.3 cm (5' 9") 07/27/2023 9:31 AM EST Body Mass Index 30.86 07/27/2023 9:31 AM EST documented in this encounter Progress Notes * Rony Callahan MD - 07/27/2023 9:51 AM EST Pt doing well No complaints RTC 3 weeks * Malgorzata Hyde LPN - 07/27/2023 9:35 AM EST 27w6d Denies concerns. Completing labs Tdap and rhogam today. documented in this encounter Plan of Treatment Upcoming Encounters Date Type Department Care Team (Late st Contact Info) Description 08/08/2023 10:30 AM EST Office Visit Gynecology/Obstetrics [facility] [address] [place] [address] Amy Bautista CRNP [address] [place] [address] 08/21/2023 8:00 AM EST Office Visit Gynecology/Obstetrics [facility] [address] [place] [address] Amy Bautista CRNP [address] [place] [address] 03/14/2024 7:20 AM EDT Office Visit Family Practice [facility] [address] [facility] [place] [address] Nati Darling, [address] [facility] [place] [address] Health Maintenance Due Date Last Done Comments [...] Encounter for supervision of normal first in second trimester Supervision of normal first Rh negative status during in third trimester documented in this encounter Administered Medications Inactive Administered Medications - up to 3 most recent administrations Medication Order MAR Action Action Date Dose Rate Site Rho D Immune Globulin (Rhophylac) inj 300 mcg 300 mcg, Intramuscular, ONCE, On Sun07/27/23 at 1100, For 1 dose, Do not administer until type and screen has been collected! 1 MCG = 5 INTERNATIONAL UNITS Given 07/27/2023 10:25 AM EST 300 mcg Dorsogluteal Left documented in this encounter Care Teams Solar Sales Energy Advisor Relationship Specialty Start Date End Date Nati Darling DO [address] [place] [address] PCP - General Family Medicine 03/13/23 documented as of this encounter
--- OUTSIDE RECORDS SUMMARY | 2023-10-08 07:55 | External Medical Summary | Summary of Care ---
Author Name Unknown Organization [facility] Address [address] [place] [address] Phone [phone] Care Team Providers Care Machinery Mover Name Role Phone Nati Darling DO Primary Care Provider Reason for Visit * Reason Onset Date Comments Test Results 04/26/2023 Encounter Details Date Type Department Care Team Description 04/26/2023 Telephone Gynecology/Obstetrics [facility] [address] [place] [address] Love Queen PA-C [address] [place] [address] Test Results Allergies No known active allergiesdocumented as of this encounter (statuses as of 05/01/2023) Medications Medication Sig Dispensed Refills Start Date End Date Status 19 29-1 MG Oral Tablet Chewable Take by mouth. 0 Activ e documented as of this encounter (statuses as of 05/01/2023) Active Problems Problem Noted Date Rubella non-immune status, antepartum Rh negative status during 11/2022 Supervision of normal first Estimated Date of Delivery Comme nts Yes 10/20/2023 Based on last me nstrual period of 01/13/2023 (Exact Date) documented as of this encounter (statuses as of 05/01/2023) Immunizations Name Administration Dates Next Due DTaP [...] Telephone Encounter - Love Queen PA-C - 05/01/2023 8:29 AM EDT MyG reviewed and read by patient. Closing encounter. * Telephone Encounter - Chayito Zarate RN - 04/26/2023 11:32 AM EDT Attempted to call pt. NA. Unable to leave a message. * Telephone Encounter - Love Queen PA-C - 04/26/2023 10:51 AM EDT Low risk Qnatal. She is having baby boy if she'd like to know. documented in this encounter Plan of Treatment Upcoming Encounters Date Type Specialty Care Team Description 05/15/2023 Office Visit Gynecology Obstetrics Amy Bautista CRNP [address] [facility] [place] [address] 03/14/2024 Office Visit Family Medicine N[facility] Darling, DO [facility] [address] Health Maintenance Due Date Last Done Comments [...] filedocumented as of this encounter Care Teams Machinery Mover Relationship Specialty Start Date End Date Nati Darling, [address] [place] [address] PCP - General Family Medicine 03/13/23 documented as of this encounter
--- OUTSIDE RECORDS SUMMARY | 2023-10-08 07:55 | External Medical Summary | Summary of Care ---
Author Name Unknown Organization [facility] Address [address] [place] [address] Phone [phone] Care Team Providers Care Hotel Manager Name Role Phone Nati Darling DO Primary Care Provider Reason for Visit * Reason Comments Outpatient Testing Encounter Details Date Type Department Care Team Description 04/16/2023 Laboratory Laboratory, [facility] [address] [place] [address] [facility] [address] [place] [address] Supervision of normal first Allergies No known active allergiesdocumented as of [...] Team Description 05/15/2023 Office Visit Gynecology Obstetrics Joseail, Amy L, SUPERVISOR OPERATIONS [address] [place] [address] 03/14/2024 Office Visit Family Medicine Nati Darling, [address] [place] [address] Pending Results Name Type Priority Associated Diagnoses Date /Time QNATAL ADVANCED (QUEST) Lab Routine Supervision of normal first 04/16/2023 11:49 AM EDT Health Maintenance Due Date Last Done Comments [...] this encounter Visit Diagnoses Diagnosis Supervision of normal first documented in this encounter Care Teams Hotel Manager Relationship Specialty Start Date End Date Nati Darling DO [address] [place] [address] PCP - General Family Medicine 03/13/23 documented as of this encounter
--- OUTSIDE RECORDS SUMMARY | 2023-10-08 07:55 | External Medical Summary ---
Author Name Unknown Address Unknown Organization [id number]:[place] [facility] [place] [facility] [place]note 2] [address] [place] [address] Laboratory Report Ordering Provider Test Date Status CARIN HAYWARD 07/27/2023 10:12:59 Final Observation Date Value Abnormality Reference (Units ) Status Creatinine 07/27/2023 10:12:59 0.5 0.5-1.0 (mg/dL) Final Glomerular filtration rate/1.73 sq M.predicted [Volume Rate/Area] in Serum, Plasma or Blood by Creatinine-based formula (CKD-EPI) 07/27/2023 10:12:59 >90 >=60 (mL/min) Final eGFR is calculated based on the CKD-EPI 2020 equation Performing Location [place] [facility] [facility] [place] [address] [place] [address]
--- OUTSIDE RECORDS SUMMARY | 2023-10-08 07:55 | External Medical Summary ---
Author Name Unknown Address Unknown Organization [id number]:LABORATORY [facility] [place] [facility] - [address] [place] [address] Laboratory Report Ordering Provider Test Date Status CARIN HAYWARD 07/27/2023 10:12:59 Final Observation Date Value Abnormality Reference (Units ) Status Glucose [Moles/volume] in Serum or Plasma --1 hour post 50 g glucose PO 07/27/2023 10:12:59 106 70-129 (mg/dL) Final Performing Location LABORATORY [facility] [facility] - [address] [place] [address]
--- OUTSIDE RECORDS SUMMARY | 2023-10-08 07:55 | External Medical Summary | Summary of Care ---
Author Name Unknown Organization [facility] Address [address] [place] [address] Phone [phone] Care Team Providers Care Director Trial Name Role Phone Nati Darling DO Primary Care Provider Reason for Visit * Reason Comments Return Visit Encounter Details Date Type Department Care Team Description 05/15/2023 [facility] [address] [facility] [place] [address] Amy Bautista CRNP [address] [facility] [place] [address] Encounter for supervision of normal first in second trimester*; Rubella non-immune status, antepartum; Rh negative, antepartum; Other specified related conditions, second trimester Allergies No known active allergiesdocumented as of this encounter (statuses as of 05/15/2023) Medications Medication Sig Dispensed Refills Start Date End Date Status 19 -1 MG Oral Tablet Chewable Take by mouth. 0 Activ e documented as of this encounter (statuses as of 05/15/2023) Active Problems Problem Noted Date Rubella non-immune status, antepartum Rh negative status during 11/2022 Supervision of normal first Estimated Date of Delivery Comme nts Yes 10/20/2023 Based on last me nstrual period of 01/13/2023 (Exact Date) documented as of this encounter (statuses as of 05/15/2023) Immunizations Name Administration Dates Next Due DTaP [...] Sign Reading Time Taken Comments Blood Pressure 120/60 05/15/2023 7:54 AM EDT Pulse - - Temperature - - Respiratory Rate - - Oxygen Saturation - - Inhaled Oxygen Concentration - - Weight 86.1 kg (189 lb 12.8 oz) 05/15/2023 7:54 AM EDT Height 175.3 cm (5' 9") 05/15/2023 7:54 AM EDT Body Mass Index 28.03 05/15/2023 7:54 AM EDT documented in this encounter Progress Notes * LASHAWN Lassiter - 05/15/2023 8:21 AM EDT 17w3d Complaints: feeling dizzy at times, usually happens when standing. Encouraged better hydration. Vomiting occasionally, but overall much less. Hasn't felt any FM. No contractions, bleeding, or LOF. Anatomy u/s with next visit. LASHAWN Lassiter * Sada Rojo LPN - 05/15/2023 8:10 AM EDT 17w3d Pt reports increase in dizziness a few weeks, denies MA, blurred vision. Reports drink 4-5 16oz powell/day. documented in this encounter Plan of Treatment Upcoming Encounters Date Type Specialty Care Team Description 06/15/2023 Imaging Radiology 06/15/2023 Office Visit Gynecology Obstetrics Love Queen PA-C [address] [place] [address] 03/14/2024 Office Visit Family Medicine Nati Darling DO [address] [facility] [place] [address] Scheduled Orders Name Type Priority Associated Diagnoses Orde r Schedule US PREG SINGLE/1ST GEST, 14 WEEKS OR LATER Medical Imaging Routine Encounter for supervision of normal first in second trimester Other specified related conditions, second trimester Expected: 06/15/2023 (Approximate), Expires: 06/15/2024 Health Maintenance Due Date Last Done Comments [...] for supervision of normal first in second trimester- Primary Supervision of normal first Rubella non-immune status, antepartum Other specified complication, antepartum Rh negative, antepartum Rhesus isoimmunization affecting management of mother, antepartum condition Other specified related conditions, second trimester documented in this encounter Care Teams Director Trial Relationship Specialty Start Date End Date Nati Darling DO [address] [place] [address] PCP - General Family Medicine 03/13/23 documented as of this encounter
--- OUTSIDE RECORDS SUMMARY | 2023-10-08 07:55 | External Medical Summary ---
Author Name Unknown Address Unknown Organization K01:LABORATORY [facility] [place] - [address] [place] [address] Laboratory Report Ordering Provider Test Date Status CARIN HAYWARD 07/27/2023 10:12:59 Final Observation Date Value Abnormality Reference (Units ) Status Folic Acid 07/27/2023 10:12:59 >20.0 >4.5 (ng/ mL) Final Performing Location LABORATORY [facility] - [address] [place] [address]
--- OUTSIDE RECORDS SUMMARY | 2023-10-08 07:55 | External Medical Summary | Summary of Care ---
Author Name Unknown Organization [facility] Address [address] [place] [address] Phone [phone] Care Team Providers Care Ticket Agent Name Role Phone Nati Darling DO Primary Care Provider Reason for Visit * Reason Comments Return Visit Encounter Details Date Type Department Care Team (Late st Contact Info) Description 07/13/2023 7:45 AM EDT Office Visit Gynecology/Obstetric s [facility] [address] [place] [address] Love Queen PA-C [address] [place] [address] Encounter for supervision of normal first in second trimester*; Rubella non-immune status, antepartum; Rh negative status during in second trimester Allergies No known active allergiesdocumented as of this encounter (statuses as of 07/13/2023) Medications Medication Sig Dispensed Refills Start Date End Date Status 19 29-1 MG Oral Tablet Chewable Take by mouth. 0 Activ e documented as of this encounter (statuses as of 07/13/2023) Active Problems Problem Noted Date Diagnosed Date Rubella non-immune status, antepartum 03/19/2023 Rh negative status during 03/19/2023 Supervision of normal first 03/15/2023 Estimated Date of Delivery Comme nts Yes 10/20/2023 Based on last me nstrual period of 01/13/2023 (Exact Date) documented as of this encounter (statuses as of 07/13/2023) Immunizations Name Administration Dates Next Due DTaP [...] , (FLULAVAL or FLUZONE) 06/15/2023 TDAP (age 11 and older)(Adacel) 08/03/2010 Varicella [...] money to get more. Never true 06/08/2023 [place] Depression Scale Answer Date Recorded [place] Depression Scale Total 0 03/15/2023 The thought of harming myself has occurred to me . Never 03/15/2023 Estimated Date of Delivery Comme nts [...] Sign Reading Time Taken Comments Blood Pressure 112/62 07/13/2023 7:42 AM EDT Pulse - - Temperature - - Respiratory Rate - - Oxygen Saturation - - Inhaled Oxygen Concentration - - Weight 92.8 kg (204 lb 9.6 oz) 07/13/2023 7:42 A M EDT Height 175.3 cm (5' 9") 07/13/2023 7:42 AM EDT Body Mass Index 30.21 07/13/2023 7:42 AM EDT documented in this encounter Progress Notes * Love Queen PA-C - 07/13/2023 7:56 AM EDT 25w6d Without complaints. Reviewed third tri labs, glucola with next visit. Reviewed RhoGAM and TdaP recommendations with next visit. Denies bleeding, leaking, contractions. Pos fm. RTC in 2 weeks Love Queen PA-C documented in this encounter Nursing Notes * Velvet Nash RN - 07/13/2023 7:43 AM EDT Patient here for OBI visit 25w6d No concerns Labs pended documented in this encounter Plan of Treatment Upcoming Encounters Date Type Department Care Team (Late st Contact Info) Description 07/27/2023 8:45 AM EST Office Visit Gynecology/Obst[facility]s [facility] [address] [facility] [place] [address] Amy Bautista CRNP [address] [place] [address] 07/27/2023 9:10 AM EST Laboratory Laboratory, [facility] [address] [place] [phone] [facility] [address] [place] [address] 08/08/2023 10:30 AM EST Office Visit Gynecology/Obstetrics [facility] [address] [place] [address] Amy Bautista CRNP [address] [place] [address] 03/14/2024 7:20 AM EDT Office Visit Family Practice [facility] [address] [facility] [place], [place] [address] Nati Darling, DO [address] [facility] [place] [address] Scheduled Orders Name Type Priority Associated Diagnoses Orde r Schedule CBC WITH WBC DIFFERENTIAL AND ANEMIA REFLEX WORKUP Lab Routine Encounter for supervision of normal first in second trimester Expected: 07/27/2023 (Approximate), Expires: 07/13/2024 SYPHILIS ANTIBODY SCREEN WITH REFLEX TO RPR Lab Routine Encounter for supervision of normal first in second trimester Expected: 07/27/2023 (Approximate), Expires: 07/13/2024 TYPE AND SCREEN Lab Routine Encounter for supervision of normal first in second trimester Rh negative status during in second trimester Expected: 07/27/2023 (Approximate), Expires: 08/13/2024 50-G GESTATIONAL GLUCOSE, 1 HOUR Lab Routine Encounter for supervision of normal first in second trimester Expected: 07/27/2023 (Approximate), Expires: 07/13/2024 Health Maintenance Due Date Last Done Comments COVID-19 Vaccine (#1) 06/25/1999 GARDASIL-HPV IMMUNIZATION SE GAVIN (3 - 3-dose series) 02/12/2018 11/20/2017, 04/26/2017 DTaP,Tdap,and Td Vaccines (7 - Td or Tdap) 08/03/2020 08/03/2010, 03/22/2004, 07/17/2000, Additional history exists Depression Screening 03/13/2024 03/13/2023 Gonorrhea / Chlamydia [...] complication, antepartum Rh negative status during in second trimester documented in this encounter Care Teams Ticket Agent Relationship Specialty Start Date End Date Nati Darling DO [address] [place] [address] PCP - General Family Medicine 03/13/23 documented as of this encounter
--- OUTSIDE RECORDS SUMMARY | 2023-10-08 07:55 | External Medical Summary | Summary of Care ---
Author Name Unknown Organization [facility] Address [address] [place] [address] Phone [phone] Care Team Providers Care Machine Repairman Name Role Phone Nati Darling DO Primary Care Provider Reason for Visit * Reason Comments Outpatient Testing Encounter Details Date Type Department Care Team (Late st Contact Info) Description 07/27/2023 9:10 AM EST Laboratory Laboratory, [facility] [address] [place] [phone] [facility] [address] [place] [address] Encounter for supervision of normal first in second trimester; Rh negative status during in second trimester [...] money to get more. Never true 06/08/2023 [place] Depression Scale Answer Date Recorded [place] Depression Scale Total 2 07/27/2023 The thought [...] 08/08/2023 10:30 AM EST Office Visit Gynecology/Obstetrics [facility] [address] [place] [address] Amy Bautista CRNP [address] [place] [address] 08/21/2023 8:00 AM EST Office Visit Gynecology/Obstetrics [facility] [address] [place] [address] Amy Bautista CRNP [address] [place] [address] 03/14/2024 7:20 AM EDT Office Visit Family Practice [facility] [address] [facility] [place], [place] [address] Nati Darling DO [address] [facility] [place] [address] Pending Results Name Type Priority Associated Diagnoses Date /Time CBC WITH WBC DIFFERENTIAL AND ANEMIA REFLEX WORKUP Lab Routine Encounter for supervision of normal first in second trimester 07/27/2023 10:12 AM EST SYPHILIS ANTIBODY SCREEN WITH REFLEX TO RPR Lab Routine Encounter for supervision of normal first in second trimester 07/27/2023 10:12 AM EST TYPE AND SCREEN Lab Routine Encounter for supervision of normal first in second trimester Rh negative status during in second trimester 07/27/2023 10:12 AM EST 50-G GESTATIONAL GLUCOSE, 1 HOUR Lab Routine Encounter for supervision of normal first in second trimester 07/27/2023 10:12 AM EST ANEMIA CBC Lab Routine Encounter for supervision of normal first in second trimester 07/27/2023 10:12 AM EST DIFFERENTIAL, AUTOMATED Lab Routine Encounter for supervision of normal first in second trimester 07/27/2023 10:12 AM EST ANEMIA REFLEX CHEMISTRY HOLD Lab Routine Encounter for supervision of normal first in second trimester 07/27/2023 10:12 AM EST SYPHILIS ANTIBODY SCREEN Lab Routine Encounter for supervision of normal first in second trimester 07/27/2023 10:12 AM EST Health Maintenance Due Date Last [...] normal first Rh negative status during in second trimester documented in this encounter Care Teams Machine Repairman Relationship Specialty Start Date End Date Nati Darling DO [address] [place] [address] PCP - General Family Medicine 03/13/23 documented as of this encounter
--- OUTSIDE RECORDS SUMMARY | 2023-10-08 07:55 | External Medical Summary | Summary of Care ---
Author Name Unknown Organization [facility] Address [address] [place] [address] Phone [phone] Care Team Providers Care Tube Bender Hand Name Role Phone Nati Darling DO Primary Care Provider Reason for Visit * Reason Onset Date Comments Return Visit Medication Administration 06/15/2023 Flu an d/or Pneumo Inj Encounter Details Date Type Department Care Team Description 06/15/2023 Office Visit Gynecology/Obstetrics [facility] [address] [place] [address] Love Queen PA-C [address] [facility] [address] Encounter for supervision of normal first in second trimester*; Rubella non-immune status, antepartum; Rh negative status during in second trimester; Need for prophylactic vaccination and inoculation against influenza Allergies No known active allergiesdocumented as of this encounter (statuses as of 06/15/2023) Medications Medication Sig Dispensed Refills Start Date End Date Status -1 MG Oral Tablet Chewable Take by mouth. 0 Activ e documented as of this encounter (statuses as of 06/15/2023) Active Problems Problem Noted Date Rubella non-immune status, antepartum Rh negative status during 07/0 11/2022 Supervision of normal first Estimated Date of Delivery Comme nts Yes 10/20/2023 Based on last me nstrual period of 01/13/2023 (Exact Date) documented as of this encounter (statuses as of 06/15/2023) Immunizations Name Administration Dates Next Due DTaP [...] got money to buy more. Never true 06/08/2023 Within the past 12 months, t he food you bought just didn't last and you didn't have money to get more. Never true 06/08/2023 Estimated Date of Delivery Comme nts Yes 10/20/2023 Based on last me nstrual period of 01/13/2023 (Exact Date) Sex Assigned at Date Recorded Female 02/08/2023 7:52 AM E DT Job Start Date Occupation Industry Not on file Not on file Not on file documented as of this encounter Last Filed Vital Signs Vital Sign Reading Time Taken Comments Blood Pressure 120/72 06/15/2023 11:18 AM EDT Pulse - - Temperature - - Respiratory Rate - - Oxygen Saturation - - Inhaled Oxygen Concentration - - Weight 89.4 kg (197 lb) 06/15/2023 11:18 AM EDT Height 175.3 cm (5' 9") 06/15/2023 11:18 AM EDT Body Mass Index 29.09 06/15/2023 11:18 AM EDT documented in this encounter Progress Notes * Love Queen PA-C - 06/15/2023 11:37 AM EDT 21w6d Anatomy today, final report pending. +FHT by ultrasound. Counseled on MSAFP for ONTD screening between 15-22 weeks GA. Patient declines. Counseled on recommendation for flu vaccination, patient accepts. Denies bleeding, leaking, contractions. + FM. No concerns. RTC in 4 weeks Love Queen PA-C documented in this encounter Nursing Notes * Malgorzata Jaeger LPN - 06/15/2023 11:34 AM EDT Patient here for flu injection. Patient doing well no complaints. Injection given IM as ordered. Patient tolerated well. Patient to follow up as directed. Patient instructed to call if any complications. Patient verbalized understanding of instructions given and her follow up appt for OBI. Injection site: Left Deltoid Medication Source: Dispensed stock medication * Malgorzata Jaeger LPN - 06/15/2023 11:20 AM EDT 21w6d Denies concerns. Anatomy scan today. documented in this encounter Plan of Treatment Upcoming Encounters Date Type Specialty Care Team Description 07/13/2023 Office Visit Gynecology Obstetrics Love Queen PA-C [address] [place] [address] 08/08/2023 Office Visit Gynecology Obstetrics Amy Bautista CRNP [address] [place] [address] 03/14/2024 Office Visit Family Medicine N[facility] Darling, DO [facility] [address] Health Maintenance Due Date Last Done Comments [...] Rh negative status during in second trimester Need for prophylactic vaccination and inoculation against influenza documented in this encounter Care Teams Tube Bender Hand Relationship Specialty Start Date End Date Nati Darling DO [address] [place] [address] PCP - General Family Medicine 03/13/23 documented as of this encounter
--- OUTSIDE RECORDS SUMMARY | 2023-10-08 07:55 | External Medical Summary ---
Author Name Unknown Address Unknown Organization : Laboratory Report Ordering Provider Test Date Status CARIN HAYWARD 04/16/2023 11:49:06 Final Observation Date Value Abnormality Reference (Units ) Status NUMBER OF FETUSES? 04/16/2023 11:49:06 1 Final ADVANCED MATERNAL AGE? 04/16/2023 11:49:06 NO Final ABNORMAL SCOTTIE? 04/16/2023 11:49:06 NO Final ABNORMAL US? 04/16/2023 11:49:06 NOT GIVEN Final PERSONAL/FAM HISTORY? 04/16/2023 11:49:06 NOT GIVEN Final INTERPRETATION 04/16/2023 11:49:06 SEE BELOW Final This specimen showed an expe cted representation of
chromosome 21, 18, and 13 material. Results were
not analyzed or reported for microdeletions. See
'Limitations' below. TRISOMY 21 (T21) 04/16/2023 11:49:06 Negative Final TRISOMY 18 (T18) 04/16/2023 11:49:06 Negative Final TRISOMY 13 (T13) 04/16/2023 11:49:06 Negative Final Y CHROMOSOME 04/16/2023 11:49:06 Detected Final Y CHR. INTERPRETATION 04/16/2023 11:49:06 SEE BELOW Final Consistent with a male fetus . SEX CHROMOSOME 04/16/2023 11:49:06 No aneuploidy Final SEX CHROMOSOME INTERP 04/16/2023 11:49:06 SEE BELOW Final No apparent abnormality was detected. See
'Limitations' below. MICRODELETION 04/16/2023 11:49:06 Opted Out Final MICRODELETION INTERP 04/16/2023 11:49:06 SEE BELOW Final Results were not analyzed or reported for
microdeletions. GESTATIONAL AGE (IN WEEKS) 04/16/2023 11:49:06 13 Final GESTATIONAL AGE (IN DAYS) 04/16/2023 11:49:06 2 Final FRACTION 04/16/2023 11:49:06 10.60% Final LABORATORY COMMENTS 04/16/2023 11:49:06 SEE BELOW Final Laboratory testing supervise d and results
monitored by Tammi Camarena, Ph.D., DABG,
[facility]. LIMITATIONS 04/16/2023 11:49:06 SEE BELOW Final QNatal(R) Advanced is a cell -free DNA test that
screens for increased risk of certain
chromosomal abnormalities that may cause
defects, including Trisomy 21 (Down syndrome),
Trisomy 18, Trisomy 13, and certain sex chromosome
abnormalities (i.e., 45,X, 47,XXY, 47,XXX, and
47,XYY), as well as sex. In addition, if
selected as an option, QNatal(R) Advanced can
screen for certain microdeletions (i.e., 22q, 5p,
1p36, 15q, 11q, 8q, and 4p) that may cause
defects. This test does not assess the risk of
abnormalities such as neural tube defects or
ventral wall defects and should not be considered
in isolation from other clinical findings and
laboratory test results.
QNatal(R) Advanced has been validated in mullen
pregnancies for the trisomies and sex chromosome
abnormalities listed above, as well as for
microdeletions, and for the determination of
sex. Sex chromosome aneuploidy analysis is only
performed in mullen pregnancies. The test has
also been validated in twin pregnancies for the
trisomies listed above and for microdeletions, but
not for the sex chromosome abnormalities due to
limited data. The test has not been validated in
higher order pregnancies (more than two) because
limited data is available.
Microdeletion screening is limited to the
specified microdeletion regions (see
'Methodology'). The Y chromosome is analyzed for
the determination of sex. The sensitivity
and specificity of sex determination
analysis may be less than that of the Trisomy 21,
18, and 13 analysis and this determination can be
confounded by vanishing twin syndrome in
pregnancies that were originally multiple
gestation pregnancies. It should be noted that
QNatal(R) Advanced is a quantitative analysis of
maternal and placental cfDNA. As a result, the
accuracy of the screening test results may be
affected by the presence of chromosome
abnormalities or microdeletions that are maternal
or confined placental in origin. False positive
findings involving the examined chromosomes and
microdeletion regions may be due to maternal,
placental, or mosaicism, by vanishing twin
syndrome, or other unexplained causes. SPECIFICATIONS 04/16/2023 11:49:06 SEE BELOW Final Sensitivity Specificity
T21 >99.9% >99.9%
T18 >99.9% >99.9%
T13 >99.9% >99.9%
Accuracy
Y >99.9%
Performance of the QNatal Advanced
laboratory-developed test (LDT) has been
determined based on internal analytical
assessment. METHODOLOGY 04/16/2023 11:49:06 SEE BELOW Final Circulating cell-free (cf) D NA was isolated from
plasma followed by detection on a massively
parallel sequencing platform. Bioinformatic
analysis was performed to determine the
representation of chromosomes 21, 18, 13, X and Y
in circulating cell-free DNA. The representation
of sequences from the critical regions involved in
1p36 microdeletion syndrome (1p36),
So-Hirschhorn syndrome (4p), Cri-du-chat
syndrome (5p), Madison-Giedion syndrome (8p),
Ebony syndrome (11q), Prader Willi
syndrome/Angelman syndrome (15q), and DiGeorge
syndrome (22q) is evaluated for the detection of
microdeletions if requested. This test was
developed, and its performance characteristics
have been determined by [facility]. It has not been
cleared or approved by the U.S. Food and Drug
Administration. Performance characteristics refer
to the analytical performance of the test. This
test is performed pursuant to a license agreement
with [employer].
This test was developed and its analytical
performance characteristics have been determined
by [facility]. It has not been cleared or approved by
FDA. This assay has been validated pursuant to the
CLIA regulations and is used for clinical
purposes.
Test performed by [facility]
[address] [facility],
[place] [address]

Submarine Cable Equipment Technician: Kayla Herrera MD,PHD,FABIAN
Test Reported by [facility],
[facility],
[address] [place], [place]
Gerardo Myrick M.D., Ph.D., Director of Laboratories
, CLIA [id number] Performing Location
--- OUTSIDE RECORDS SUMMARY | 2023-10-08 07:55 | External Medical Summary ---
Author Name Unknown Address Unknown Organization [id number]:LABORATORY [facility] - [address] [facility] [address] Laboratory Report Ordering Provider Test Date Status CARIN HAYWARD 07/27/2023 10:12:59 Final Observation Date Value Abnormality Reference (Units ) Status Retic, % (auto) 07/27/2023 10:12:59 3.33 Above high normal 0.80-1.90 (%) Final Reticulocytes, Absolute 07/27/2023 10:12:59 114.6 Above high normal 31.3-100.1 (K/uL) Final Reticulocyte fraction, immature 07/27/2023 10:12:59 33.6 Above high normal 2.5-20.6 (%) Final Reticulocyte HGB 07/27/2023 10:12:59 31.6 29.7-37.4 (pg) Final Performing Location LABORATORY [facility] - [address] [facility] [address]
--- OUTSIDE RECORDS SUMMARY | 2023-10-08 07:55 | External Medical Summary ---
Author Name Unknown Address Unknown Organization K01:LABORATORY [facility] - [address] [facility] [address] Laboratory Report Ordering Provider Test Date Status YESYCARIN 07/27/2023 10:12:59 Final Observation Date Value Abnormality Reference (Units ) Status SYNC LEUKOCYTES IN BLOOD BY AUTOMATED COUNT 07/27/2023 10:12:59 10.10 4.00-10.80 (K/uL) Final Neutrophils/100 leukocytes in Blood by Manual count 07/27/2023 10:12:59 76.0 Above high normal 40.0-75.0 (%) Final Lymphocytes/100 leukocytes in Blood by Manual count 07/27/2023 10:12:59 14.0 Below low normal 18.0-42.0 (%) Final Monocytes/100 leukocytes in Blood by Manual count 07/27/2023 10:12:59 4.0 1.0-11.0 (%) Final Eosinophils/100 leukocytes in Blood by Manual count 07/27/2023 10:12:59 1.0 0.0-6.0 (%) Final Metamyelocytes/100 leukocytes in Blood by Manual count 07/27/2023 10:12:59 4.0 Above high normal <=0.0 (%) Final Myelocytes/100 leukocytes in Blood by Manual count 07/27/2023 10:12:59 1.0 Above high normal <=0.0 (%) Final Neutrophils [#/volume] in Blood by Manual count 07/27/2023 10:12:59 7.68 1.80-7.70 (K/uL) Final Lymphocytes [#/volume] in Blood by Manual count 07/27/2023 10:12:59 1.41 1.00-4.80 (K/uL) Final Monocytes [#/volume] in Blood by Manual count 07/27/2023 10:12:59 0.40 0.00-1.10 (K/uL) Final Eosinophils [#/volume] in Blood by Manual count 07/27/2023 10:12:59 0.10 0.00-0.70 (K/uL) Final Metamyelocytes [#/volume] in Blood by Manual count 07/27/2023 10:12:59 0.40 Above high normal <=0.00 (K/uL) Final Myelocytes [#/volume] in Blood by Manual count 07/27/2023 10:12:59 0.10 Above high normal <=0.00 (K/uL) Final Bouse cells [Presence] in Blood by Light microscopy 07/27/2023 10:12:59 Moderate Abnormal None Seen Final Variant lymphocytes [Presence] in Blood by Light microscopy 07/27/2023 10:12:59 Present Abnormal None Seen Final Neutrophils.vacuolated [Presence] in Blood by Light microscopy 07/27/2023 10:12:59 Present Abnormal None Seen Final Performing Location [facility] [place] [address] [facility] [address]
[2023-10-08] MEDS ORDERED: OXYTOCIN 30 UNITS/NSS 30 UNITS/500 ML BAG IV PRN (08:16)
[2023-10-08] MEDS ORDERED: LIDOCAINE 1% LOCAL 20 ML VIAL INFIL PRN (08:16)
[2023-10-08] MEDS ORDERED: DINOPROSTONE 10 MG INSERT PV ONE (08:16)
[2023-10-08 08:41] LABS: Hematocrit (blood only) 33.3 % (37.0-47.0); Hemoglobin 11.1 g/dl (12.0-16.0); Mean Corpuscular Hemoglobin 28.6 pg (25.0-34.0); Mean Corpuscular Hgb Conc 33.3 g/dL (32.0-36.0); Mean Corpuscular Volume 85.8 fL (80.0-100.0); Mean Platelet Volume 11.8 fL (9.4-12.4); Platelet Count 168 K/uL (130-400); RDW Coefficient of Variation 15.3 % (11.5-14.5); RDW Standard Deviation 47.8 fL (36.4-46.3); Red Blood Count 3.88 M/uL (4.20-5.40); White Blood Count 9.58 K/ul (4.8-10.8)
[2023-10-08 08:55] LABS: Alanine Aminotransferase 8 U/L (7-52); Albumin Globulin Ratio 1.2 (0.9-2); Albumin Level 3.7 gm/dl (3.4-5.0); Alkaline Phosphatase 156 U/L (34-104); Anion Gap 9 (3-11); Aspartate Aminotransferase 12 U/L (13-39); BUN Creatinine Ratio 23.3 (10-20); Bilirubin,Total 0.4 mg/dl (0.2-1.0); Blood Urea Nitrogen 10 mg/dl (6-23); Calcium 9.7 mg/dl (8.6-10.3); Carbon Dioxide 23 mmol/L (21-32); Chloride 104 mmol/L (98-107); Creatinine Clr Calc Pharmacy 251.9 ml/min; Est GFR (African American) > 150.0 ml/min; Est GFR (Non-African American) 142.4 ml/min; Glucose 107 mg/dl (70-99(Fasting)); Potassium 3.6 mmol/L (3.5-5.1); Sodium 136 mmol/L (136-145); Total Protein 6.7 gm/dl (6.0-8.3)
[2023-10-08] MEDS ORDERED: BUTORPHANOL TARTRATE 1 MG/ML VIAL IV PRN (10:03)
--- NOTE | 2023-10-08 10:08 | History & Physical Report ---
Date of Service October 08, 2023 Assessment & Plan (1) Intrahepatic cholestasis of in third trimester: Plan: 22-year-old G1, P0 at 38 weeks and 2 days of gestation presenting today for scheduled induction of labor for ICP, Vital signs stable afebrile, GBS negative, heart rate reassuring, Labs normal, Cervix unfavorable, Cervidil is placed for cervical ripening, Continue to monitor closely, Admission and Anticipated Discharge Date Admission Date: October 08, 2023 History of Present Illness Primary Care Provider: Nati Darling DO Patient is a 22 yo at 38.2wks here for IOL for ICP and elevated LFT's, has been on Joan for itching and it has been helping. No complaints today. No ctxs/ LOF/VB +FM GBS neg Her has been otherwise uncomplicated Allergies Allergy/AdvReac Type Severity Reaction Status Date / Time No Known Allergies Allergy Verified 10/08/23 07:56 Home Medications Medication Instructions Recorded Confirmed Type mecobalamin (vitamin B12) 1,000 1,000 mcg PO DAILY 10/08/23 10/08/23 History mcg chewable tablet (B12 Active) [id number] 1 mg 1 tab PO DAILY 10/08/23 10/08/23 History tablet ursodiol 300 mg capsule 300 mg PO BID 10/08/23 10/08/23 History Patient History Medical History No known health problems Surgical History H/O wisdom tooth extraction Family History Grandfather (Maternal) Valvular heart disease Social History Smoking Status: Never smoker Hx Alcohol Use: No Hx Substance Use: No Preferred Language: Swedish Visual Impairment: No Limitations Licensed Appraiser Required: No Beliefs That Will Affect Care: None marital status: marital status details: Trevor Garcia Current Living Situation: Spouse Current Living Situation Comment: current occupational status: employed 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 Feels Safe at Home: Yes Safety Concerns: Feels Safe At This Time Assistive Devices: None MANAGER RECOVERY History No history of STDs, no history of chlamydia, gonorrhea, herpes Review of Systems as per Subjective / HPI Physical Exam Constitutional: WD/WN, vitals as above well developed, well nourished and comfortable Genitourinary: normal external appearance OB Exam Abdomen: + vertex Manual OB Exam: + cervical dilation 1 cm, + cervical effacement 30% and + station -2 Bedside ultrasound Vertex Results & Data Vital Signs (Past 12 Hours) Vital Signs Temp Pulse Resp BP 10/08/23 07:41 36.6 C 107 H 18 131/82 Diagnostic Findings Lab Results 10/08/23 Range/Units 08:21 WBC 9.58 (4.8-10.8) K/ul RBC 3.88 L (4.20-5.40) M/uL Hgb 11.1 L (12.0-16.0) g/dl Hct 33.3 L (37.0-47.0) % MCV 85.8 (80.0-100.0) fL MCH 28.6 (25.0-34.0) pg MCHC 33.3 (32.0-36.0) g/dL RDW Std Deviation 47.8 H (36.4-46.3) fL RDW Coeff of Leah 15.3 H (11.5-14.5) % Plt Count 168 (130-400) K/uL MPV 11.8 (9.4-12.4) fL Sodium 136 (136-145) mmol/L Potassium 3.6 (3.5-5.1) mmol/L Chloride 104 (98-107) mmol/L Carbon Dioxide 23 (21-32) mmol/L Anion Gap 9 (3-11) BUN 10 (6-23) mg/dl Creatinine 0.43 L (0.6-1.2) mg/dl Est Cr Clr Drug Dosing 251.9 ml/min Est GFR ( Amer) > 150.0 ml/min Est GFR (Non-Af Amer) 142.4 ml/min BUN/Creatinine Ratio 23.3 H (10-20) Glucose 107 H (70-99(Fasting)) mg/dl Calcium 9.7 (8.6-10.3) mg/dl Total Bilirubin 0.4 (0.2-1.0) mg/dl AST 12 L (13-39) U/L ALT 8 (7-52) U/L Alkaline Phosphatase 156 H (34-104) U/L Total Protein 6.7 (6.0-8.3) gm/dl Albumin 3.7 (3.4-5.0) gm/dl Globulin 3.0 (2.5-4.0) gm/dl Albumin/Globulin Ratio 1.2 (0.9-2)
--- NOTE | 2023-10-08 22:08 | Obstetrical Progress Note ---
Date of Service October 08, 2023 Assessment & Plan Admission and Anticipated Discharge Date Admission Date: October 08, 2023 Subjective Patient is reevaluated. She has been feeling contractions with minimal discomfort, does not need pain meds Cervidil was removed by her nurse and her cervix was changed to 2-3 cm FHR categ I [place] ctxs q 1-3 min Patient desires to take shower Continue to monitor closely Results & Data Vital Signs (Past 12 Hours) Vital Signs Temp Pulse Resp BP 10/08/23 20:00 18 10/08/23 20:00 37.2 C 18 10/08/23 19:30 37.2 C 18 10/08/23 19:23 107 H 133/84 10/08/23 14:39 92 H 122/70 10/08/23 14:34 36.6 C 10/08/23 11:05 91 H 122/73 10/08/23 11:00 18 10/08/23 11:00 36.7 C 18
[2023-10-09] MEDS: miSOPROStoL 25 MCG TAB SL SCH ×3 (02:24→11:08)
[2023-10-09] MEDS ORDERED: OXYTOCIN 30 UNITS/NSS 30 UNITS/500 ML BAG IV PRN ×2 (11:11→19:50)
--- NOTE | 2023-10-09 11:11 | Labor Progress Brief Note ---
Date of Service October 09, 2023 Assessment & Plan Admission and Anticipated Discharge Date Admission Date: October 08, 2023 Physical Exam Genitourinary: Manual OB Exam: + cervical dilation 3 cm, + cervical effacement 60%, + station -2 and + amniotic fluid clear AROM with Amni-hook clear fluid will start Oxytocin to augment contractions Results & Data Vital Signs (Past 12 Hours) Vital Signs Temp Pulse Resp BP 10/09/23 10:51 93 H 136/75 10/09/23 10:50 18 10/09/23 10:50 36.7 C 18 10/09/23 07:00 36.7 C 20 10/09/23 06:58 93 H 123/77 10/09/23 06:12 89 117/59 L 10/09/23 02:26 92 H 116/63 10/08/23 23:24 96 H 119/72 10/08/23 23:20 18 10/08/23 23:20 37.0 C 18
[2023-10-09] MEDS: LACTATED RINGER'S 1,000 ML IV PRN ×3 (11:50→17:08)
[2023-10-09] MEDS ORDERED: fentaNYL citrate PF 100 MCG/2 ML VIAL ONE (11:56)
[2023-10-09] MEDS ORDERED: ePHEDrine sulfate 50 MG/ML AMP ONE (11:56)
[2023-10-09] MEDS ORDERED: fentANYL 2 MCG/ML BUPIVacaine 0.125%-NSS 100ML BAG ONE (11:57)
[2023-10-09] MEDS ORDERED: BUPIVACAINE 0.25% PF 30 ML VIAL ONE (11:57)
[2023-10-09] MEDS ORDERED: LIDOCAINE 2%/EPINEPHRINE 1:200,000 20 ML PF ONE (11:57)
[2023-10-09] MEDS ORDERED: fentaNYL citrate PF 100 MCG/2 ML VIAL EPI STA (12:55)
[2023-10-09] MEDS ORDERED: NALOXONE HCL 1 MG in SODIUM CHLORIDE 0.9% 1,000 ML IV PRN (12:55)
[2023-10-09] MEDS ORDERED: fentaNYL citrate PF 100 MCG/2 ML VIAL EPI PRN (12:55)
[2023-10-09] MEDS ORDERED: BUPIVACAINE 0.25% PF 30 ML VIAL EPI STA (12:55)
[2023-10-09] MEDS ORDERED: ONDANSETRON INJ 2 MG/ML 2 ML VIAL IV PRN (12:55)
[2023-10-09] MEDS ORDERED: SODIUM CHLORIDE 0.9% PF INJ 10 ML VIAL EPI STA (12:55)
[2023-10-09] MEDS ORDERED: diphenhydrAMINE 50 MG/ML VIAL IV PRN (12:55)
[2023-10-09] MEDS ORDERED: SODIUM CHLORIDE 0.9% PF INJ 10 ML VIAL EPI PRN (12:55)
[2023-10-09] MEDS ORDERED: ePHEDrine sulfate 50 MG/ML AMP IV PRN (12:55)
[2023-10-09] MEDS ORDERED: NALOXONE HCL 0.4 MG/1 ML VIAL/CARP IV PRN (12:55)
[2023-10-09] MEDS ORDERED: fentANYL 2 MCG/ML BUPIVacaine 0.125%-NSS 100ML BAG EPI PRN (12:55)
[2023-10-09] MEDS ORDERED: LIDOCAINE 2% MPF LOCAL 5 ML VIAL EPI PRN (12:55)
[2023-10-09] MEDS ORDERED: ROPIVACAINE 0.5% PF 5 MG/ML 20 ML VIAL EPI PRN (12:55)
[2023-10-09] MEDS ORDERED: BUPIVACAINE 0.25% PF 30 ML VIAL EPI PRN (12:55)
[2023-10-09] MEDS ORDERED: LIDOCAINE 2%/EPINEPHRINE 1:200,000 20 ML PF EPI STA (12:55)
[2023-10-09] MEDS ORDERED: NALBUPHINE HCL 5 MG in SYRINGE 0 ML IV PRN (12:55)
--- NOTE | 2023-10-09 12:55 | Anesthesiology Consultation ---
Date of Service October 09, 2023 Assessment & Plan ASA ASA2 Proposed Anesthesia Anesthesia Type: Labor Epidural Risk / Benefits Reviewed With: PT / POA / Parent / Guardian, Accepts Plan and Informed Consent Obtained Additional Comments: late entry, decided to address patients pain before entering note. pt seen and examined prior to procedure History Height/Weight Height: 5 ft 9 in Weight: 98.43 kg Allergies Allergy/AdvReac Type Severity Reaction Status Date / Time No Known Allergies Allergy Verified 10/08/23 07:56 Medications Home Medications Medication Instructions Recorded Confirmed Last Taken mecobalamin (vitamin B12) 1,000 1,000 mcg PO DAILY 10/08/23 10/08/23 10/08/23 mcg chewable tablet (B12 Active) [id number] 1 mg 1 tab PO DAILY 10/08/23 10/08/23 10/08/23 tablet ursodiol 300 mg capsule 300 mg PO BID 10/08/23 10/08/23 10/08/23 Active Medications Generic Name Dose Route Start Last Admin Trade Name Freq PRN Reason Stop Dose Admin Lactated Ringer's 1,000 mls @ 125 mls/hr 10/08/23 08:16 10/09/23 12:45 Lr IV 10/10/23 08:15 999 mls/hr .Q8H PRN Administration L&D Protocol Protocol Past Medical History Medical History No known health problems Exercise / Class Metabolic Activity II 4-5 Yardwork/Stairs/Walk up hill Past Family History Family History Grandfather (Maternal) Valvular heart disease Past Surgical History Surgical History H/O wisdom tooth extraction Past Anesthesia History No Hx of Anesthesia Complications and No Family Hx of Anesthesia Complications History of PONV No Hx of PONV and No Hx of Motion Sickness Social History Smoking Status: Never smoker Hx Alcohol Use: No Hx Substance Use: No substance use type: does not use Review of Systems denies fever/cough/ colds/ chest pain/ SOB/ TONIA denies TONIA Physical Exam Vital Signs Last Vital Signs Temp 37.0 C 10/09/23 12:49 Pulse 97 H 10/09/23 12:52 Resp 18 10/09/23 10:50 BP 128/63 10/09/23 12:52 Pulse Ox 97 10/09/23 12:49 ENMT Mouth: no TMJ abnormality and no dentition abnormality Thyromental Distance: > or= 3.5 Finger Breadths Mallampati Class: II Neck neck extension not limited Respiratory normal respiratory effort; no respiratory distress Auscultation: lungs clear to auscultation bilaterally Cardiovascular Rate/Rhythm: regular rate and regular rhythm Neurologic moves all extremities Psychiatric Orientation: alert and oriented x 3 Testing Laboratory Results 10/08/23 08:21 10/08/23 08:21
--- NOTE | 2023-10-09 19:43 | Delivery Summary ---
Vaginal Delivery Summary Date of Service October 09, 2023 Vaginal Delivery Summary live male over intact perineum with Apgars 8/9 weight pending. Cord blood obtained followed by spontaneous delivery of intact placenta. Second degree tear repaired with 3/0 Vicryl suture. EBL 250 ml. Final sponge, needle and instrument count are correct. Mom and baby stable.
[2023-10-09] MEDS ORDERED: HYDROCORTISONE ACETATE 25 MG SUPP PR PRN (19:50)
[2023-10-09] MEDS ORDERED: DIPHTHER/TETAN/PERTUS Vaccine (Tdap, Adol/Adult) 0.5mL IM ONE (19:50)
[2023-10-09] MEDS ORDERED: ACETAMINOPHEN 325 MG TAB PO PRN (19:50)
[2023-10-09] MEDS ORDERED: BENZOCAINE 20% SPRY 85 APPLN/85 GM CAN EXT PRN (19:50)
[2023-10-09] MEDS ORDERED: bisacodyL 10 MG SUPP PR PRN (19:50)
--- NOTE | 2023-10-09 20:06 | Anesthesia Procedure Note ---
Date of Service October 09, 2023 Anesthesia Post Epidural Note Vital Signs Vital Signs: Temp Pulse Resp BP Pulse Ox 37.0 C 116 H 18 129/82 90 10/09/23 19:35 10/09/23 20:05 10/09/23 19:35 10/09/23 20:05 10/09/23 19:04 Pain Intensity Bilateral Abdomen: Pain Intensity: 3 Notes Mental Status: alert / awake / arousable and participated in evaluation Nausea / Vomiting: adequately controlled Pain: adequately controlled Airway Patency, RR, SpO2: stable & adequate BP & HR: stable & adequate Hydration State: stable & adequate Neuraxial Anesthesia: was administered and sensory block resolved Anesthetic Complications: no major complications apparent and Pt Satisfied with anesthetic care Epidural: Removed without complications and With tip intact
[2023-10-09] MEDS: DOCUSATE SODIUM 100 MG CAP PO SCH (20:21)
[2023-10-09] MEDS: IBUPROFEN 600 MG TAB PO PRN (20:21)
[2023-10-09] MEDS: ursodioL 300 MG CAP PO SCH (21:50)
[2023-10-10] MEDS: IBUPROFEN 600 MG TAB PO PRN ×3 (05:22→16:32)
[2023-10-10 06:08] LABS: Hematocrit (blood only) 26.6 % (37.0-47.0); Mean Corpuscular Hemoglobin 29.5 pg (25.0-34.0); Mean Corpuscular Hgb Conc 33.8 g/dL (32.0-36.0); Mean Corpuscular Volume 87.2 fL (80.0-100.0); Mean Platelet Volume 11.6 fL (9.4-12.4); Platelet Count 153 K/uL (130-400); RDW Coefficient of Variation 15.3 % (11.5-14.5); RDW Standard Deviation 48.7 fL (36.4-46.3); Red Blood Count 3.05 M/uL (4.20-5.40); White Blood Count 12.84 K/ul (4.8-10.8)
[2023-10-10] MEDS ORDERED: MEASLES, MUMPS & RUBELLA VIRUS VACCINE (MMR) VIAL SQ ONE (08:06)
--- NOTE | 2023-10-10 08:33 | Obstetrical Progress Note ---
Date of Service October 10, 2023 Assessment & Plan Admission and Anticipated Discharge Date Admission Date: October 08, 2023 Subjective Patient is seen and examined. She feels well, no complaints. Ambulating without dizziness Voiding without difficulty Tolerating regular diet with out N&V Bleeding is minimal No fever/ chills/ CP/ SOB/ N&V/ Leg pain Breast feeding without problems Vital Signs Temp Pulse Pulse Pulse Resp BP BP 10/10/23 05:00 36.7 C 89 89 30 H 110/68 10/09/23 23:10 36.8 C 93 H 18 114/72 10/09/23 21:50 36.5 C 97 H 20 119/76 10/09/23 21:35 134 H 115/78 10/09/23 21:20 136 H 123/78 10/09/23 21:05 36.7 C 18 10/09/23 21:05 129 H 148/105 H 10/09/23 20:50 122 H 121/80 10/09/23 20:35 129 H 134/83 Pulse Ox O2 Del Method 10/10/23 05:00 Room Air 10/09/23 23:10 10/09/23 21:50 100 Room Air 10/09/23 21:35 10/09/23 21:20 10/09/23 21:05 10/09/23 21:05 10/09/23 20:50 10/09/23 20:35 Lab Results 10/08/23 10/10/23 Range/Units 08:21 05:46 WBC 9.58 12.84 H (4.8-10.8) K/ul RBC 3.88 L 3.05 L (4.20-5.40) M/uL Hgb 11.1 L 9.0 L (12.0-16.0) g/dl Hct 33.3 L 26.6 L (37.0-47.0) % MCV 85.8 87.2 (80.0-100.0) fL MCH 28.6 29.5 (25.0-34.0) pg MCHC 33.3 33.8 (32.0-36.0) g/dL RDW Std Deviation 47.8 H 48.7 H (36.4-46.3) fL RDW Coeff of Leah 15.3 H 15.3 H (11.5-14.5) % Plt Count 168 153 (130-400) K/uL MPV 11.8 11.6 (9.4-12.4) fL Sodium 136 (136-145) mmol/L Potassium 3.6 (3.5-5.1) mmol/L Chloride 104 (98-107) mmol/L Carbon Dioxide 23 (21-32) mmol/L Anion Gap 9 (3-11) BUN 10 (6-23) mg/dl Creatinine 0.43 L (0.6-1.2) mg/dl Est Cr Clr Drug Dosing 251.9 ml/min Est GFR ( Amer) > 150.0 ml/min Est GFR (Non-Af Amer) 142.4 ml/min BUN/Creatinine Ratio 23.3 H (10-20) Glucose 107 H (70-99(Fasting)) mg/dl Calcium 9.7 (8.6-10.3) mg/dl Total Bilirubin 0.4 (0.2-1.0) mg/dl AST 12 L (13-39) U/L ALT 8 (7-52) U/L Alkaline Phosphatase 156 H (34-104) U/L Total Protein 6.7 (6.0-8.3) gm/dl Albumin 3.7 (3.4-5.0) gm/dl Globulin 3.0 (2.5-4.0) gm/dl Albumin/Globulin Ratio 1.2 (0.9-2) PE: General: Alert, orientedx3, NAD Abd: soft, NT, fundus firm, below Umbilicus Perineum intact, Lochia rubra minimal Ext; NT, no edema AP: 22 yo s/p , ppd# 1 VSS Afebrile doing well Continue routine care All questions were answered D/C home tomorrow Results & Data Vital Signs (Past 12 Hours) Vital Signs Temp Pulse Pulse Pulse Resp BP BP 10/10/23 05:00 36.7 C 89 89 30 H 110/68 10/09/23 23:10 36.8 C 93 H 18 114/72 10/09/23 21:50 36.5 C 97 H 20 119/76 10/09/23 21:35 134 H 115/78 10/09/23 21:20 136 H 123/78 10/09/23 21:05 36.7 C 18 10/09/23 21:05 129 H 148/105 H 10/09/23 20:50 122 H 121/80 10/09/23 20:35 129 H 134/83 Pulse Ox O2 Del Method 10/10/23 05:00 Room Air 10/09/23 23:10 10/09/23 21:50 100 Room Air 10/09/23 21:35 10/09/23 21:20 10/09/23 21:05 10/09/23 21:05 10/09/23 20:50 10/09/23 20:35
[2023-10-10] MEDS ORDERED: NON-FORMULARY MEDICATION (Prenatal Multivit-Min-Fe-Fa 1 mg Tablet) PO SCH (09:00)
[2023-10-10] MEDS: PRENATAL VITAMIN 1 TAB PO SCH (09:15)
[2023-10-10] MEDS: ursodioL 300 MG CAP PO SCH ×2 (09:15→21:08)
[2023-10-10] MEDS: CYANOCOBALAMIN (B-12) 500 MCG TABLET PO SCH (09:16)
[2023-10-10] MEDS: DOCUSATE SODIUM 100 MG CAP PO SCH ×2 (09:16→21:08)
[2023-10-10] MEDS: FERROUS SULFATE 325 MG TAB PO SCH (10:11)
[2023-10-10] MEDS ORDERED: bisacodyL 5 MG TABEC PO SCH (20:00)
[2023-10-11 08:06] LABS: Hematocrit (blood only) 27.5 % (37.0-47.0); Hemoglobin 8.9 g/dl (12.0-16.0)
[2023-10-11] MEDS: DOCUSATE SODIUM 100 MG CAP PO SCH (09:17)
[2023-10-11] MEDS: FERROUS SULFATE 325 MG TAB PO SCH (09:18)
[2023-10-11] MEDS: PRENATAL VITAMIN 1 TAB PO SCH (09:18)
[2023-10-11] MEDS: ursodioL 300 MG CAP PO SCH (09:18)
[2023-10-11] MEDS: CYANOCOBALAMIN (B-12) 500 MCG TABLET PO SCH (09:18)
[2023-10-11] MEDS: IBUPROFEN 600 MG TAB PO PRN (09:18)
--- NOTE | 2023-10-11 10:28 | Obstetrical Progress Note ---
Date of Service October 11, 2023 Subjective Ambulation: ambulating normally Voiding: no voiding problems Passing Gas:: Yes Diet Tolerance:: regular diet Feeding Type:: breast feeding Current Pain Level(1-10): 0 doing well. plans for d/c today Physical Exam Constitutional WD/WN, vitals as above Gastrointestinal (Abdomen) Inspection/Auscultation: abdomen normal to inspection abdomen soft and non-tender. fundus firm Musculoskeletal Extremities: extremities normal to inspection Skin no rashes, warm and dry Neurologic patellar DTR's 2+ bilat, sensation intact Psychiatric A+Ox3, euthymic affect Results & Data Vital Signs (Past 12 Hours) Vital Signs Temp Pulse Resp BP Pulse Ox O2 Del Method 10/11/23 07:41 37 C 107 H 18 119/73 97 Room Air 10/11/23 00:30 36.8 C 125 H 16 123/77 Room Air Laboratory Results 10/08/23 10/10/23 10/11/23 08:21 05:46 07:12 WBC 9.58 12.84 H RBC 3.88 L 3.05 L Hgb 11.1 L 9.0 L 8.9 L Hct 33.3 L 26.6 L 27.5 L MCV 85.8 87.2 MCH 28.6 29.5 MCHC 33.3 33.8 RDW Std Deviation 47.8 H 48.7 H RDW Coeff of Leah 15.3 H 15.3 H Plt Count 168 153 MPV 11.8 11.6 Sodium 136 Potassium 3.6 Chloride 104 Carbon Dioxide 23 Anion Gap 9 BUN 10 Creatinine 0.43 L Est Cr Clr Drug Dosing 251.9 Est GFR ( Amer) > 150.0 Est GFR (Non-Af Amer) 142.4 BUN/Creatinine Ratio 23.3 H Glucose 107 H Calcium 9.7 Total Bilirubin 0.4 AST 12 L ALT 8 Alkaline Phosphatase 156 H Total Protein 6.7 Albumin 3.7 Globulin 3.0 Albumin/Globulin Ratio 1.2 Blood Type O Negative Antibody Screen NEGATIVE Screen Negative
[2023-10-11] MEDS ORDERED: MEASLES, MUMPS & RUBELLA VIRUS VACCINE (MMR) VIAL ONE (11:21)
== END 2023-10-11 15:00 | disposition home or self-care (01) | DRG 807 ==
LOC: 4S1 07:27 → 4E2 10-09 21:53